=== PATIENT | male | born 1970 | race Caucasian/White ===

== ENCOUNTER → 2016-10-29 | Outpatient (CLI) | payer MEDICARE, OTHER ==
--- NOTE | 2016-10-29 11:25 | CT ---
EXAMINATION TYPE: CT sinus wo con DATE OF EXAM: 10/29/2016 9:02 AM COMPARISON: NONE HISTORY: Sinusitis CT DLP: 564.4 mGycm CONTRAST: None The paranasal sinuses are examined in the axial plane at 2 mm thick sections. Reconstructed images i n the coronal plane were obtained. There is a retention cyst within the right maxillary sinus. Retention cyst within the inferior left m axillary sinus. The ethmoid air cells are clear. The sphenoid sinuses are clear. The frontal sinus es are clear. The septum is evaluated. There is septal deviation to the left. The ostiomeatal units are patent. Ja air cells are present. IMPRESSIONS: 1. Retention cyst within the bilateral maxillary sinuses.
== END | disposition home or self-care (01) ==
LOC: RADCTMAIN 08:50
PROVIDERS: ATTEND Otolaryngology
DX: M27.40 Unspecified cyst of jaw (principal); J32.9 Chronic sinusitis, unspecified
CPT/HCPCS: 70486

== ENCOUNTER 2016-12-01 07:39 | Day surgery (SDC) | payer MEDICARE, OTHER ==
[2016-11-28 14:49] VITALS: BMI 36.6
[~2016-12-01 07:39] MED LIST: ACETAMINOPHEN TAB 500 MG TAB PO ONE; DEXAMETHASONE SOD PHOSPHATE 10 MG/ML 1 ML VIAL IV ONE; DEXAMETHASONE SOD PHOSPHATE 4 MG/ML 1 ML VIAL IV ONE; FAMOTIDINE 20 MG/2 ML VIAL IV ONE; HYDROmorphone 1 MG/ML 1 ML SYRINGE IVP PRN; LACTATED RINGERS 1,000 ML IV SCH; MIDAZOLAM 2 MG/2 ML VIAL IV PRN; ONDANSETRON 4 MG/2 ML VIAL IVP ONE; Pre Op ABX Message 1 EACH MISC MISCELLANE ONE; SCOPOLAMINE 1.5MG/72HR PATCH TRANSDERM ONE
[2016-12-01] MEDS: OXYMETAZOLINE 0.05% NASL SPRAY 15 ML NASAL ONE ×5 (08:33→08:55)
[2016-12-01] MEDS ORDERED: LIDOCAINE 1% 20 ML VIAL (10MG/ML) FOR IV START INTRADERMA ONE (08:40)
[2016-12-01] MEDS ORDERED: MIDAZOLAM 2 MG/2 ML VIAL ONE (09:35)
[2016-12-01] MEDS ORDERED: PROPOFOL 10 MG/ML 20 ML VIAL IV ONE (09:35)
[2016-12-01] MEDS ORDERED: fentaNYL (PF) 50 MCG/ML 2 ML AMP ONE (09:35)
[2016-12-01] MEDS ORDERED: SUCCINYLCHOLINE CHLORIDE 100 MG/5 ML SYR IV ONE (09:35)
[2016-12-01] MEDS ORDERED: DEXAMETHASONE SOD PHOS (MDV) 100 MG/10 ML VIAL ONE (09:35)
[2016-12-01] MEDS ORDERED: OXYMETAZOLINE 0.05% NASL SPRAY 15 ML NASAL ONE (10:00)
[2016-12-01] MEDS ORDERED: EPINEPHrine 1 MG/ML (MDV) 30 ML VIAL SQ ONE ×2 (10:01)
[2016-12-01] MEDS ORDERED: BUPIVACAINE (PF) 0.5% 30 ML VIAL MISCELLANE ONE ×2 (10:03)
[2016-12-01] MEDS ORDERED: LIDOCAINE 1%-EPI 1:100,000 20 ML VIAL SUBMUCOSAL ONE ×2 (10:04)
[2016-12-01] MEDS ORDERED: LACTATED RINGERS 1,000 ML IV ONE (11:11)
[2016-12-01 11:22] VITALS: TEMP 97.2
--- NOTE | 2016-12-01 11:29 | P.OP ---
Date of Procedure: 12/01/16 Preoperative Diagnosis: Chronic sinusitis Deviated nasal septum Bilateral maxillary sinus polyps Massive inferior turbinate hypertrophy Obstructive sleep apnea syndrome Obesity Postoperative Diagnosis: Same Procedure(s) Performed: Septoplasty Bilateral outfracture compression and submucosal resection of the inferior turbinates Bilateral functional endoscopic sinus surgery Bilateral removal of maxillary sinus polyps Anesthesia: SMITH Surgeon: Adama Torrez Estimated Blood Loss (ml): 40 Pathology: other (Sinonasal) Condition: stable Disposition: PACU Indications for Procedure: This patient has had long-standing sinus disease with complaints of nasal congestion, discolored drainage, facial pain and pressure, anosmia, fatigue etc. He is unable to utilize the CPAP because of his nasal obstructive issues. He also has some secondary migraine issues. CAT scan evaluation shows significant sinus disease and a severe deviated nasal septum and large obstructive inferior turbinates. All risks, benefits, and alternative therapies were discussed in detail. Risks of bleeding, infection, orbital and skull base penetration, E for secondary surgery, polyp recurrence etc. etc. were explained. All questions were answered and a consent was obtained. Operative Findings: This patient was found have a very severe left septal deviation with massive nasal inferior turbinate hypertrophy with obstruction they maxillary sinus polyps there were attached at the base of the maxillary sinuses and widespread sinonasal disease throughout were noted. Description of Procedure: This patient was taken to the operative room and placed in the supine position. A general inhalation anesthetic was administered to the patient by the department of anesthesia with a functioning IV line in place. The patient was monitored throughout the entire case by the department of anesthesia. The eyes were taped shut for protection. The patient was placed in a slight reverse Trendelenburg position. The patient had previously utilize Afrin nasal spray preoperatively. The nose was evaluated and the septum lateral nasal wall and inferior turbinates were injected with lidocaine 1% with epinephrine 1 100,000 bilaterally. Approximately 10 minutes were allowed wait for full vasoconstrictive effects to take place. At this point a caudal incision was made over the caudal portion of the left septum down to the mucoperichondrium. A mucoperichondrial flap was elevated on the left side and dissection was carried with use of tunnels posteriorly. We then made a crossover incision through the cartilage to the contralateral side and for the mucoperichondrial flap development was performed to the extent of visualization on the contralateral side. After the cartilage was freed with use of several crosshatching incisions and removal of some redundant strips of septal cartilage, the septum was straightened and placed back in the midline. The septum was sutured fixated to the ovarian groove. Excellent straightening occurred and the septum was visibly straight. Incision was closed with a 40 rapid Vicryl. We utilized a running nonlocking fashion for closure of the incision. A quilting stitch was used to reapproximate the septal flaps with use of a 40 rapid Vicryl. We then entered the nose with a 0 and 30 Mejia zhanna endoscope. Previous to this we did inject the lateral nasal wall and middle turbinate and uncinate process with lidocaine 1% with epinephrine 1 100,000. Approximately 10 minutes were allowed wait for full vasoconstrictive effects to take place. With use of a microdebrider and a pediatric backbiter, we took down the uncinate process bilaterally. We then opened the maxillary sinuses bilaterally. We utilized a microdebrider for this and entered the maxillary sinuses and removed diseased tissue. Bilateral maxillary sinus polyps were removed bilateral maxillary sinus polyps were removed This was done bilaterally. After the maxillary sinuses were opened and the diseased tissue was removed we entered the ethmoid bulla and with use of a microdebrider and up-biting boss and Kaylynley, we followed the fovea frontalis through the basal lamella and into the posterior ethmoid air cells and did a total ethmoidectomy. We removed the anterior ethmoid air cells with use of a microdebrider and up-biting boss. After all the anterior ethmoid air cells were removed we did the same in the posterior ethmoid. A total ethmoidectomy was completed in that fashion with removal of all the anterior and posterior ethmoid air cells and diseased tissue. Once the ethmoids cells were all taken down we then entered the sphenoid sinus medially and inferiorly underneath the inferior attachment of the superior turbinate. The sphenoid sinus was opened entered and diseased tissue was removed bilaterally. This was done with a microdebrider and [place]akesley. We then entered the frontal sinuses with a giraffe and up-biting Blakesley entered on the agar nasi cells. We open the frontal sinuses and removed sinus tissue that was diseased. We explored the frontal sinuses bilaterally. To summarize all sinuses were open all sinuses were explored and we remove diseased tissue from the sphenoid maxillary and frontal sinuses. Ethmoid sinuses were opened totally. We removed all the ethmoid septations in both the anterior and posterior ethmoid air cells. 0 gel was inserted and minimal bleeding was encountered. We reinspected the skull base there is no signs of any orbital penetration or signs of any intracranial penetration. The sugical site was reinspected after the 0 gel was placed and no bleeding was seen. Attention was then paid to the inferior turbinates. The bilateral inferior turbinates were hypertrophic and obstructive. We entered the anterior portion of the inferior turbinates with use of a microdebrider. We remove bone and submucosal elements with use of a microdebrider bilaterally. The inferior turbinates underwent a submucosal resection with removal of submucosal tissue and bone. We obtained a much better and normal in size for breathing. The inferior turbinates were then outfractured and compressed with a Swapdomes nasal elevator. Excellent airway was obtained and was symmetric bilaterally. No bleeding was encountered.Intranasal splints were inserted and fixated at the end of the case. We utilized Arechiga nasal splints. There will be removed and the patient returns to the office.
[2016-12-01] MEDS ORDERED: amLODIPine 10 MG TAB PO STA (11:32)
[2016-12-01] MEDS ORDERED: amLODIPine 10 MG TAB PO PRN (11:38)
[2016-12-01 11:46] VITALS: RESP 16
[2016-12-01] MEDS ORDERED: HYDROcodone/APAP 5-325MG 1 EACH TAB PO ONE (12:08)
[2016-12-01 12:34] VITALS: BP 142/91; PULSE 93
== END 2016-12-01 13:17 | disposition home or self-care (01) ==
LOC: OR 07:39
PROVIDERS: ATTEND Otolaryngology
DX: J34.2 Deviated nasal septum (principal); J32.4 Chronic pansinusitis; J33.8 Other polyp of sinus; J34.3 Hypertrophy of nasal turbinates; G47.33 Obstructive sleep apnea (adult) (pediatric); G43.909 Migraine, unspecified, not intractable, without status migrainosus; I10 Essential (primary) hypertension; E78.5 Hyperlipidemia, unspecified; F17.200 Nicotine dependence, unspecified, uncomplicated; F32.9 Major depressive disorder, single episode, unspecified; K21.9 Gastro-esophageal reflux disease without esophagitis; E66.9 Obesity, unspecified; Z68.37 Body mass index [BMI] 37.0-37.9, adult; Z79.899 Other long term (current) drug therapy; Z79.52 Long term (current) use of systemic steroids
CPT/HCPCS: 30520; 30140; 31255; 96361; 96374; 96375; 99285; 94640; 88305; 88300; 71020; J0171; J2250; J2270; J1100 ×2; J2405; J3010; J0131; J0330; J2704

== ENCOUNTER 2016-12-01 20:04 | Emergency (ER) | payer MEDICARE, OTHER ==
[2016-12-01] MEDS ORDERED: ACETAMINOPHEN IV (For NPO) 1,000 MG in EMPTY BAG 1 BAG IVPB STA (20:30)
[2016-12-01] MEDS ORDERED: ONDANSETRON 4 MG/2 ML VIAL IVP STA (20:30)
[2016-12-01] MEDS ORDERED: IPRATROPIUM-ALBUTEROL 3 ML NEB INHALATION STA (20:30)
[2016-12-01] MEDS ORDERED: SODIUM CHLORIDE 0.9% 1,000 ML IV ONE (20:32)
--- NOTE | 2016-12-01 20:36 | ED ---
General Adult HPI - General Chief complaint: ENT Stated complaint: SARY/Headache Post Op 10hrs Time Seen by Provider: 12/01/16 20:24 Source: patient, RN notes reviewed, old records reviewed Mode of arrival: ambulatory Limitations: no limitations - History of Present Illness Initial comments: 46-year-old male presenting for headache and shortness of breath. Patient had an ENT procedure done earlier today by Dr. Torrez. States since he woke up from anesthesia he has had a persistent headache. He also feels like he has a sore throat and feels somewhat short of breath. He does have a history of tobacco abuse but states he has not smoked today or yesterday. He denies any chest pain. He denies epistaxis since the surgery. He does have nasal packing in place. He denies any fevers or chills. - Related Data Home Medications Medication Instructions Recorded Confirmed Lisinopril-Hctz 10-12.5 mg 1 tab PO HS 05/30/14 12/01/16 [Zestoretic 10-12.5] FLUoxetine HCL [PROzac] 20 mg PO HS 06/09/15 12/01/16 Ipratropium [place] [Atrovent Hfa] 2 puff INHALATION RT-QID PRN 06/09/15 Pravastatin Sodium [Pravachol] 20 mg PO DAILY 06/09/15 12/01/16 Ascorbic Acid [Vitamin C] 250 mg PO DAILY 11/28/16 12/01/16 Esomeprazole Magnesium [NexIUM] 40 mg PO HS 11/28/16 12/01/16 Multivitamin [Multivitamins Adult 1 tab PO DAILY 11/28/16 12/01/16 Gummies] SUMAtriptan SUCCINATE [Imitrex] 100 mg PO BID 11/28/16 12/01/16 Amoxicillin/Potassium Clav 1 tab PO Q12HR 12/01/16 12/01/16 [Augmentin 875-125 Tablet] Ergocalciferol [Vitamin D2] 50,000 unit PO WE 12/01/16 12/01/16 Hydrocodone/Acetaminophen [[place] 1 - 2 tab PO Q6HR PRN 12/01/16 12/01/16 5-325] Montelukast [Singulair] 10 mg PO HS 12/01/16 12/01/16 predniSONE See Taper PO DIRECTED 12/01/16 12/01/16 Previous Rx's Medication Instructions Recorded Ibuprofen [Motrin] 600 mg PO Q6HR PRN #60 tab 06/11/15 Allergies Allergy/AdvReac Type Severity Reaction Status Date / Time No Known Allergies Allergy Verified 12/01/16 20:39 Review of Systems ROS Statement: Those systems with pertinent positive or pertinent negative responses have been documented in the HPI. ROS Other: All systems not noted in ROS Statement are negative. Past Medical History Past Medical History: Asthma, GERD/Reflux, Hyperlipidemia, Hypertension, Osteoarthritis (OA), Sleep Apnea/CPAP/BIPAP Additional Past Medical History / Comment(s): STATES UNABLE TO WEAR MACHINE, CURRENT TX FOR URI STARTED MEDS 05/26/14 History of Any Multi-Drug Resistant Organisms: None Reported Past Surgical History: Orthopedic Surgery Additional Past Surgical History / Comment(s): JORDAN KNEE ARTHROSCOPY, TESTICLE SX CHILD, nose surgery Past Anesthesia/Blood Transfusion Reactions: No Reported Reaction Past Psychological History: Anxiety Additional Psychological History / Comment(s): STATES TAKES PROZAC FOR ANGER ISSUES Smoking Status: Current every day smoker Past Alcohol Use History: None Reported Past Drug Use History: None Reported - Past Family History Mother Family Medical History: No Reported History General Exam - General Exam Comments Initial Comments: General: Awake and Alert. No acute distress. Does not appear acutely ill. Obese. Eyes: JUDIT, EOM intact. No nystagmus. No scleral icterus. HENT: Atraumatic, normocephalic. Mucous membranes are dry. Trachea midline. There is nasal packing in both nares which appears clean, there is no bleeding in the posterior pharynx. Neck: The neck is supple, there is no tenderness or JVD. Cardiovascular: Regular rate and rhythm. No murmur, rub, or gallop is appreciated. Distal pulses intact. Respiratory: Lungs are clear to auscultation bilaterally. No wheezes, rales, rhonchi. No respiratory distress. Gastrointestinal: Soft, Nontender. No rebound or guarding. Non-distended. No masses or organomegaly noted. No CVA tenderness. Musculoskeletal: No tenderness. Normal ROM. No gross deformity. No strength deficits. Neurological: A&Ox3. CN II-XII grossly intact, There are no obvious motor or sensory deficits. Coordination appears grossly intact. Speech is normal. Skin: Skin is warm and dry and no rashes or lesions are noted. Psychiatric: Cooperative, appropriate mood & affect, normal judgment. Limitations: no limitations Course Vital Signs 12/01/16 12/01/16 12/01/16 20:10 21:07 21:21 Temperature 98 F Pulse Rate 90 86 86 Respiratory 24 Rate Blood Pressure 175/89 O2 Sat by Pulse 97 Oximetry 12/01/16 22:30 Temperature 98.3 F Pulse Rate 86 Respiratory 20 Rate Blood Pressure 149/72 O2 Sat by Pulse 99 Oximetry Medical Decision Making - Medical Decision Making 46-year-old male presenting for evaluation after ENT procedure earlier today. Patient appears clinically stable at this time. He does appear to have some dry mucous membranes which may be due to medications from anesthesia versus dehydration. Patient does not have any posterior pharyngeal edema. Lungs sounds are clear without wheezing or respiratory distress. He does have history of tobacco abuse and was given a breathing treatment to help with SOB, although no significant wheezing or respiratory distress on exam. Discussed expectations of pain after the procedure that he had as well as after intubation and extubation during the procedure. Patient was given pain and nausea medication. I did call and discuss with Dr. Torrez to updated on this status of patient. Patient does not appear to have any complications related to surgery at this time. Patient was reevaluated and feeling improved. Discussed close follow-up with PCP and Dr. Torrez. Pt has Rx for [place] he filled. Discussed concerning signs symptoms for immediate return to the ED. Patient is agreeable with plan and discharge home. - Radiology Data Radiology results: report reviewed, image reviewed Disposition Clinical Impression: Headache, SOB (shortness of breath), S/P nasal surgery Disposition: HOME SELF-CARE Condition: Stable Instructions: Acute Headache (ED) Additional Instructions: Please take your medications prescribed after surgery as directed. Please follow up with Dr. Torrez as scheduled. Referrals: Bessie Salgado MD [Primary Care Provider] - 1-2 days Time of Disposition: 22:30
--- NOTE | 2016-12-01 21:52 | XR ---
EXAMINATION TYPE: XR chest 2V DATE OF EXAM: 12/01/2016 9:35 PM COMPARISON: 07/14/2015 HISTORY: Short of breath TECHNIQUE: Frontal and lateral views of the chest are obtained. FINDINGS: Heart and mediastinum are normal. Lungs are clear. Diaphragm is normal. Bony thorax appear s normal. IMPRESSION: Normal chest. No change.
[2016-12-01] MEDS ORDERED: MORPHINE SULFATE 4 MG/ML SYRINGE IVP STA (22:13)
[2016-12-01 23:25] VITALS: BP 158/75; PULSE 89; RESP 18; TEMP 98.1
== END 2016-12-01 23:15 | disposition home or self-care (01) ==
LOC: EC 20:04
DX: R06.02 Shortness of breath (principal); R51 Headache; F17.200 Nicotine dependence, unspecified, uncomplicated; J45.909 Unspecified asthma, uncomplicated; K21.9 Gastro-esophageal reflux disease without esophagitis; E78.5 Hyperlipidemia, unspecified; I10 Essential (primary) hypertension; M19.90 Unspecified osteoarthritis, unspecified site; G47.30 Sleep apnea, unspecified; F41.9 Anxiety disorder, unspecified; Z79.899 Other long term (current) drug therapy; Z79.52 Long term (current) use of systemic steroids; Z98.890 Other specified postprocedural states
CPT/HCPCS: 99285; 96374; 96375 ×2; 96361; 94640; 71020; J2270; J2405; J0131

== ENCOUNTER 2016-12-03 19:20 | Emergency (ER) | payer MEDICARE, OTHER ==
[2016-12-03] MEDS ORDERED: METOCLOPRAMIDE 5 MG/ML 2 ML VIAL IVP STA (20:20)
[2016-12-03] MEDS ORDERED: KETOROLAC 30 MG/ML 1 ML VIAL IVP STA (20:20)
[2016-12-03] MEDS ORDERED: diphenhydrAMINE 50 MG/ML 1 ML VIAL IVP STA (20:20)
[2016-12-03 20:52] LABS: Basophils # (A) 0.1 k/uL (0-0.2); Basophils % (A) 0 %; CH 30.2; Eosinophils # (A) 0.1 k/uL (0-0.7); Eosinophils % (A) 1 %; HCT 44.3 % (39.0-53.0); HDW 2.24; HGB 14.4 gm/dL (13.0-17.5); Luc # (Auto) 0.16; Luc % (Auto) 1; Lymphocytes # (A) 2.3 k/uL (1.0-4.8); Lymphocytes % (A) 19 %; MCH 29.8 pg (25.0-35.0); MCHC 32.4 g/dL (31.0-37.0); MCV 91.9 fL (80.0-100.0); Mean Platelet Volume 7.4; Monocytes # (A) 0.6 k/uL (0-1.0); Monocytes % (A) 5 %; Neutrophils % (A) 74 %; RBC 4.82 m/uL (4.30-5.90); WBC 12.1 k/uL (3.8-10.6); WBC (Perox) 11.74
[2016-12-03 21:01] LABS: Anion Gap 10 mmol/L; Blood Urea Nitrogen 11 mg/dL (9-20); Calcium 9.4 mg/dL (8.4-10.2); Carbon Dioxide 27 mmol/L (22-30); Chloride 101 mmol/L (98-107); Glucose 92 mg/dL (74-99); Non-African American GFR(MDRD) >60 (>60 ml/min/1.73 sqM); Potassium 4.4 mmol/L (3.5-5.1); Sodium 138 mmol/L (137-145)
[2016-12-03] MEDS ORDERED: OXYMETAZOLINE 0.05% NASL SPRAY 15 ML NASAL STA (21:01)
[2016-12-03 21:54] VITALS: BP 154/83; PULSE 84; RESP 20; TEMP 98.4
--- NOTE | 2016-12-03 22:36 | ED ---
General Adult HPI - General Chief complaint: Headache Stated complaint: [place] Source: patient Mode of arrival: ambulatory Limitations: no limitations - History of Present Illness Initial comments: 46-year-old male presented for evaluation of headache for the last few days. On he had an ENT procedure with Dr. Torrez and has since been evaluated in this department twice for migraines. Today he presents for continued headache that is different from the previous headaches he presented for him that it is more frontal headache and not located at the nose. He states he has a long-standing history of migraines and that he believes his surgery has caused this current episode. He denies any change in vision, ataxia, weakness, numbness, paresthesias, loss of balance. He denies any chest pain, shortness breath, fevers, chills, nausea, vomiting. - Related Data Home Medications Medication Instructions Recorded Confirmed Lisinopril-Hctz 10-12.5 mg 1 tab PO HS 05/30/14 12/03/16 [Zestoretic 10-12.5] FLUoxetine HCL [PROzac] 20 mg PO HS 06/09/15 12/03/16 Ipratropium [place] [Atrovent Hfa] 2 puff INHALATION RT-QID PRN 06/09/15 Pravastatin Sodium [Pravachol] 20 mg PO DAILY 06/09/15 12/03/16 Ascorbic Acid [Vitamin C] 250 mg PO DAILY 11/28/16 12/03/16 Esomeprazole Magnesium [NexIUM] 40 mg PO HS 11/28/16 12/03/16 Multivitamin [Multivitamins Adult 1 tab PO DAILY 11/28/16 12/03/16 Gummies] SUMAtriptan SUCCINATE [Imitrex] 100 mg PO BID 11/28/16 12/03/16 Amoxicillin/Potassium Clav 1 tab PO Q12HR 12/01/16 12/03/16 [Augmentin 875-125 Tablet] Ergocalciferol [Vitamin D2] 50,000 unit PO WE 12/01/16 12/03/16 Hydrocodone/Acetaminophen [[place] 1 - 2 tab PO Q6HR PRN 12/01/16 12/03/16 5-325] Montelukast [Singulair] 10 mg PO HS 12/01/16 12/03/16 predniSONE See Taper PO DIRECTED 12/01/16 12/03/16 Pseudoephedrine [Sudafed] 30 mg PO Q4H PRN 12/03/16 12/03/16 Previous Rx's Medication Instructions Recorded Ibuprofen [Motrin] 600 mg PO Q6HR PRN #60 tab 06/11/15 Ondansetron Odt [Zofran Odt] 4 mg PO Q8HR PRN #12 tab 12/02/16 LORazepam [Ativan] 0.5 mg PO TID #15 tab 12/03/16 SUMAtriptan SUCCINATE [Imitrex] 50 mg PO ONCE #10 tablet 12/03/16 Allergies Allergy/AdvReac Type Severity Reaction Status Date / Time No Known Allergies Allergy Verified 12/03/16 19:54 Review of Systems ROS Statement: Those systems with pertinent positive or pertinent negative responses have been documented in the HPI. ROS Other: All systems not noted in ROS Statement are negative. Constitutional: Denies: fever, chills Eyes: Denies: eye pain, eye discharge ENT: Reports: congestion, other (Recent ENT surgery with minimal drainage from bilateral nostrils). Denies: ear pain, throat pain, hearing loss, epistaxis Respiratory: Denies: cough, dyspnea Cardiovascular: Denies: chest pain, palpitations, dyspnea on exertion Endocrine: Denies: fatigue, polydipsia Gastrointestinal: Denies: abdominal pain, nausea, vomiting Genitourinary: Denies: urgency, dysuria, frequency Musculoskeletal: Denies: back pain, arthralgia Skin: Denies: rash, lesions Neurological: Reports: headache. Denies: weakness Psychiatric: Denies: anxiety, depression Hematological/Lymphatic: Denies: easy bleeding, easy bruising Past Medical History Past Medical History: Asthma, GERD/Reflux, Hyperlipidemia, Hypertension, Osteoarthritis (OA), Sleep Apnea/CPAP/BIPAP Additional Past Medical History / Comment(s): STATES UNABLE TO WEAR MACHINE, CURRENT TX FOR URI STARTED MEDS 05/26/14 History of Any Multi-Drug Resistant Organisms: None Reported Past Surgical History: Orthopedic Surgery Additional Past Surgical History / Comment(s): JORDAN KNEE ARTHROSCOPY, TESTICLE SX CHILD, nose surgery Past Anesthesia/Blood Transfusion Reactions: No Reported Reaction Past Psychological History: Anxiety Additional Psychological History / Comment(s): STATES TAKES PROZAC FOR ANGER ISSUES Smoking Status: Current every day smoker Past Alcohol Use History: None Reported Past Drug Use History: None Reported - Past Family History Mother Family Medical History: No Reported History General Exam Limitations: no limitations General appearance: alert, in no apparent distress Head exam: Present: atraumatic, normocephalic, normal inspection Eye exam: Present: normal appearance, PERRL, EOMI. Absent: scleral icterus, conjunctival injection, periorbital swelling ENT exam: Present: normal oropharynx, normal external ear exam, other ( Bilateral nostril exam shows swollen membranes with clear minimal drainage) Neck exam: Present: normal inspection. Absent: tenderness, meningismus, lymphadenopathy Respiratory exam: Present: normal lung sounds bilaterally. Absent: respiratory distress, wheezes, rales, rhonchi, stridor Cardiovascular Exam: Present: regular rate, normal rhythm, normal heart sounds. Absent: systolic murmur, diastolic murmur, rubs, gallop, clicks GI/Abdominal exam: Present: soft, normal bowel sounds. Absent: distended, tenderness, guarding, rebound, rigid Rectal exam: Present: deferred Extremities exam: Present: normal inspection, full ROM, normal capillary refill. Absent: tenderness, pedal edema, joint swelling, calf tenderness Back exam: Present: normal inspection Neurological exam: Present: alert, oriented X3, CN II-XII intact Psychiatric exam: Present: normal affect, normal mood Skin exam: Present: warm, dry, intact, normal color. Absent: rash Course Vital Signs 12/03/16 12/03/16 19:26 21:52 Temperature 97.6 F 98.4 F Pulse Rate 83 84 Respiratory 18 20 Rate Blood Pressure 139/88 154/83 O2 Sat by Pulse 96 96 Oximetry Medical Decision Making - Medical Decision Making 46-year-old male presented for evaluation of migraine. He recently had an ENT procedure and has been evaluated at the facility twice over the last 2 days each time with a normal workup and instructions to follow-up with his ENT. On Monday he did have the nasal packings removed by his ENT without competitions. On physical examination he has no change in vision, cranial nerves II through XII intact without focal neurologic deficits, negative ataxia. We'll obtain labs and provide pain control and follow-up with his ENT. Discussed with Dr. Torrez who requested the pt he given a benzo for anxiety and to have him follow up in his office next week.Labs revealed no significant abnormalities and pt was observed for an appropriate amount of time to watch for complications from headache cocktail. Pt requested to be discharged. He was informed of all results and advised to follow-up with his PCP and ENT but to return if his symptoms should worsen or persist. He acknowledged an understanding of this information and agreed with this plan of care. - Lab Data Result diagrams: 12/03/16 20:41 12/03/16 20:41 Lab Results 12/03/16 12/03/16 Range/Units 20:41 20:41 WBC 12.1 H (3.8-10.6) k/uL RBC 4.82 (4.30-5.90) m/uL Hgb 14.4 (13.0-17.5) gm/dL Hct 44.3 (39.0-53.0) % MCV 91.9 (80.0-100.0) fL MCH 29.8 (25.0-35.0) pg MCHC 32.4 (31.0-37.0) g/dL RDW 13.0 (11.5-15.5) % Plt Count 260 (150-450) k/uL Neutrophils % 74 % Lymphocytes % 19 % Monocytes % 5 % Eosinophils % 1 % Basophils % 0 % Neutrophils # 9.0 H (1.3-7.7) k/uL Lymphocytes # 2.3 (1.0-4.8) k/uL Monocytes # 0.6 (0-1.0) k/uL Eosinophils # 0.1 (0-0.7) k/uL Basophils # 0.1 (0-0.2) k/uL Sodium 138 (137-145) mmol/L Potassium 4.4 (3.5-5.1) mmol/L Chloride 101 (98-107) mmol/L Carbon Dioxide 27 (22-30) mmol/L Anion Gap 10 mmol/L BUN 11 (9-20) mg/dL Creatinine 0.80 (0.66-1.25) mg/dL Est GFR (MDRD) Af Amer >60 (>60 ml/min/1.73 sqM) Est GFR (MDRD) Non-Af >60 (>60 ml/min/1.73 sqM) Glucose 92 (74-99) mg/dL Calcium 9.4 (8.4-10.2) mg/dL Disposition Clinical Impression: Headache Disposition: HOME SELF-CARE Condition: Stable Instructions: Acute Headache (ED) Additional Instructions: Please use medication as discussed. Please follow up with family doctor if symptoms have not improved over the next two days. Please return to the emergency room if your symptoms increase or worsen or for any other concerns. Prescriptions: LORazepam [Ativan] 0.5 mg PO TID #15 tab SUMAtriptan SUCCINATE [Imitrex] 50 mg PO ONCE #10 tablet Referrals: Bessie Salgado MD [Primary Care Provider] - 1-2 days Time of Disposition: 22:35
== END 2016-12-03 22:42 | disposition home or self-care (01) ==
LOC: EC 19:20
DX: R51 Headache (principal); I10 Essential (primary) hypertension; J45.909 Unspecified asthma, uncomplicated; E78.5 Hyperlipidemia, unspecified; F41.9 Anxiety disorder, unspecified; K21.9 Gastro-esophageal reflux disease without esophagitis; M19.90 Unspecified osteoarthritis, unspecified site; F17.200 Nicotine dependence, unspecified, uncomplicated; Z98.890 Other specified postprocedural states; Z79.899 Other long term (current) drug therapy
CPT/HCPCS: 99283; 96374; 96375 ×2; 36415; 80048; 85025; J1200; J2765; J1885

== ENCOUNTER 2017-04-21 19:02 | Emergency (ER) | payer MEDICARE, OTHER ==
[2017-04-21 19:19] VITALS: BP 138/75; PULSE 94; RESP 18; TEMP 98.2
--- NOTE | 2017-04-21 19:31 | ED ---
General Adult HPI - General Chief complaint: Extremity Injury, Lower Stated complaint: dropped hammer on toe Time Seen by Provider: 04/21/17 19:24 Source: patient, RN notes reviewed Mode of arrival: wheelchair Limitations: no limitations - History of Present Illness Initial comments: 46-year-old male presents emergency department with a chief complaint of left toe pain. Patient dropped a hammer onto her left toe. Patient states that he has not looked at it. He was concerned due to how tender was without that he should be seen. Patient denies any other symptoms at this time. Patient has been able to ambulate. Patient was concerned due to his pain so he thought that he should be seen.Patient denies any recent fever, chills, shortness of breath, chest pain, back pain, abdominal pain, nausea vomiting, numbness or tingling, dysuria or hematuria, constipation or diarrhea, headaches or visual changes, or any other current symptoms. - Related Data Home Medications Medication Instructions Recorded Confirmed Ipratropium [place] [Atrovent Hfa] 2 puff INHALATION RT-QID PRN 06/09/15 Pravastatin Sodium [Pravachol] 20 mg PO DAILY 06/09/15 04/21/17 Esomeprazole Magnesium [NexIUM] 40 mg PO HS 11/28/16 04/21/17 Multivitamin [Multivitamins Adult 1 tab PO DAILY 11/28/16 04/21/17 Gummies] SUMAtriptan SUCCINATE [Imitrex] 100 mg PO DAILY PRN 11/28/16 04/21/17 Montelukast [Singulair] 10 mg PO HS 12/01/16 04/21/17 Lisinopril-Hctz 10-12.5 mg 1 tab PO DAILY 04/21/17 04/21/17 [Zestoretic 10-12.5] Allergies Allergy/AdvReac Type Severity Reaction Status Date / Time No Known Allergies Allergy Verified 04/21/17 19:46 Review of Systems ROS Statement: Those systems with pertinent positive or pertinent negative responses have been documented in the HPI. ROS Other: All systems not noted in ROS Statement are negative. Past Medical History Past Medical History: Asthma, GERD/Reflux, Hyperlipidemia, Hypertension, Osteoarthritis (OA), Sleep Apnea/CPAP/BIPAP Additional Past Medical History / Comment(s): STATES UNABLE TO WEAR MACHINE, CURRENT TX FOR URI STARTED MEDS 05/26/14 History of Any Multi-Drug Resistant Organisms: None Reported Past Surgical History: Orthopedic Surgery Additional Past Surgical History / Comment(s): JORDNA KNEE ARTHROSCOPY, TESTICLE SX CHILD, nose surgery Past Anesthesia/Blood Transfusion Reactions: No Reported Reaction Past Psychological History: Anxiety Smoking Status: Current every day smoker Past Alcohol Use History: None Reported Past Drug Use History: None Reported - Past Family History Mother Family Medical History: No Reported History General Exam - General Exam Comments Initial Comments: General: The patient is awake and alert, in no distress, and does not appear acutely ill. Neck: The neck is supple, there is no tenderness. Cardiovascular: There is a regular rate and rhythm. No murmur, rub or gallop is appreciated. Respiratory: Lungs are clear to auscultation, respirations are non-labored, breath sounds are equal. No wheezes, stridor, rales, or rhonchi. Musculoskeletal: Sensation intact with 2+ pulses throughout the left lower extremity. full range of motion. small blood blister base of left nail. tenderness to palpation of left pinky toe. Neurological: CN II-XII intact, There are no obvious motor or sensory deficits. Coordination appears grossly intact. Speech is normal. Skin: Skin is warm and dry and no rashes or lesions are noted. Psychiatric: Normal mood and affect. Limitations: no limitations Course Vital Signs 04/21/17 19:15 Temperature 98.2 F Pulse Rate 94 Respiratory 18 Rate Blood Pressure 138/75 O2 Sat by Pulse 99 Oximetry Procedures - Orthopedic Splinting/Casting Injury #1 Side: left Lower Extremity Injury Location: toe Lower Extremity Immobilizer: post-op shoe, ludy tape Medical Decision Making - Medical Decision Making 46-year-old male presents for left pinky toe injury from a hammer. At this time x-rays reviewed that show a left foot toe fracture. Patient's toes were taped together and he was placed in a walking boot. He given follow-up to our help. Patient is agreeable with this plan. All questions have been answered. Return parameters discussed. - Radiology Data Radiology results: report reviewed, image reviewed Disposition Clinical Impression: Toe fracture, left Disposition: HOME SELF-CARE Condition: Stable Instructions: Toe Fracture (ED) Additional Instructions: Please use medication as discussed. Please follow up with family doctor if symptoms have not improved over the next two days. Please return to the emergency room if your symptoms increase or worsen or for any other concerns. Referrals: Bessie Salgado MD [Primary Care Provider] - 1-2 days Karina Camacho DO [Doctor of Osteopathic Medicine] - 1-2 days Time of Disposition: 19:53
--- NOTE | 2017-04-21 19:42 | XR ---
EXAMINATION TYPE: XR toes LT DATE OF EXAM: 04/21/2017 COMPARISON: NONE HISTORY: Dropped hammer on the toe TECHNIQUE: 3 views FINDINGS: There is a nondisplaced fracture of the tuft of the distal phalanx of the little toe left f oot. There is no dislocation. IMPRESSION: Fracture of the distal phalanx of the little toe as above.
== END 2017-04-21 20:15 | disposition home or self-care (01) ==
LOC: EC 19:02
DX: S92.535A Nondisplaced fracture of distal phalanx of left lesser toe(s), initial encounter for closed fracture (principal); K21.9 Gastro-esophageal reflux disease without esophagitis; I10 Essential (primary) hypertension; J45.909 Unspecified asthma, uncomplicated; E78.5 Hyperlipidemia, unspecified; F17.200 Nicotine dependence, unspecified, uncomplicated; Z79.899 Other long term (current) drug therapy; Z98.890 Other specified postprocedural states; W20.8XXA Other cause of strike by thrown, projected or falling object, initial encounter
CPT/HCPCS: 99283

== ENCOUNTER → 2017-05-23 | Outpatient (CLI) | payer MEDICARE, OTHER ==
--- NOTE | 2017-05-23 17:22 | XR ---
EXAMINATION TYPE: XR chest 2V DATE OF EXAM: 05/23/2017 COMPARISON: 12/01/2016 HISTORY: Hypertension. Short of breath TECHNIQUE: Frontal and lateral views of the chest are obtained. FINDINGS: Heart and mediastinum are normal. Lungs are clear. Diaphragm is normal. Bony thorax is int act. IMPRESSION: Normal chest. No change.
--- NOTE | 2017-05-23 18:02 | US ---
EXAMINATION TYPE: US venous doppler duplex LE BI DATE OF EXAM: 05/23/2017 5:36 PM COMPARISON: NONE CLINICAL HISTORY: R22.42, R22.41 Bilateral leg swelling. SIDE PERFORMED: Bilateral TECHNIQUE: The lower extremity deep venous system is examined utilizing real time linear array sonog hieu with graded compression, doppler sonography and color-flow sonography. VESSELS IMAGED: External Iliac Vein (EIV) Common Femoral Vein Deep Femoral Vein Greater Saphenous Vein * Femoral Vein Popliteal Vein Small Saphenous Vein * Proximal Calf Veins (* superficial vessels) Right Leg: Negative for DVT Left Leg: Negative for DVT No evidence of DVT bilateral legs IMPRESSION: Normal exam. No evidence of deep venous thrombosis in both legs.
== END ==
LOC: RADUSMAIN 17:05
PROVIDERS: ATTEND Family Medicine
DX: M79.89 Other specified soft tissue disorders (principal); I10 Essential (primary) hypertension; E78.2 Mixed hyperlipidemia
CPT/HCPCS: 71020; 93970

== ENCOUNTER 2017-06-01 01:15 | Emergency (ER) | payer MEDICARE, OTHER ==
--- NOTE | 2017-06-01 03:12 | ED ---
ENT HPI - General Chief complaint: ENT Stated complaint: Nasal Congestion/SARY Time Seen by Provider: 06/01/17 02:24 Source: patient Mode of arrival: ambulatory Limitations: no limitations - History of Present Illness Initial comments: 46-year-old male presents emergency Department chief complaint of right-sided nasal congestion and clogging. Patient reports that only started this evening. He reports these currently on Keflex for a skin infection over his right ankle. Patient stated that healing well. Patient states he woke up with difficulty breathing. He did take some Sudafed 1 hour prior to arrival. Upon examining the patient he reports that his difficulty breathing is resolved. He reports that he's had significant rhinorrhea. No trauma to the nose or no other complaints including cough or shortness of breath. Patient denies any recent fever, chills, shortness of breath, chest pain, back pain, abdominal pain , nausea vomiting, numbness or tingling, dysuria or hematuria, constipation or diarrhea, headaches or visual changes, or any other current symptoms - Related Data Home Medications Medication Instructions Recorded Confirmed Ipratropium [place] [Atrovent Hfa] 2 puff INHALATION RT-QID PRN 06/09/15 Pravastatin Sodium [Pravachol] 20 mg PO DAILY 06/09/15 06/01/17 Esomeprazole Magnesium [NexIUM] 40 mg PO HS 11/28/16 06/01/17 Montelukast [Singulair] 10 mg PO HS 12/01/16 06/01/17 Lisinopril-Hctz 10-12.5 mg 1 tab PO DAILY 04/21/17 06/01/17 [Zestoretic 10-12.5] Previous Rx's Medication Instructions Recorded Fluticasone Nasal [place] [Flonase 1 spray EA NOSTRIL DAILY #1 bottle 06/01/17 Nasal [place]] Allergies Allergy/AdvReac Type Severity Reaction Status Date / Time No Known Allergies Allergy Verified 06/01/17 01:46 Review of Systems ROS Statement: Those systems with pertinent positive or pertinent negative responses have been documented in the HPI. ROS Other: All systems not noted in ROS Statement are negative. Past Medical History Past Medical History: Asthma, GERD/Reflux, Hyperlipidemia, Hypertension, Osteoarthritis (OA), Sleep Apnea/CPAP/BIPAP Additional Past Medical History / Comment(s): STATES UNABLE TO WEAR MACHINE, CURRENT TX FOR URI STARTED MEDS 05/26/14 History of Any Multi-Drug Resistant Organisms: None Reported Past Surgical History: Orthopedic Surgery Additional Past Surgical History / Comment(s): JORDAN KNEE ARTHROSCOPY, TESTICLE SX CHILD, nose surgery Past Anesthesia/Blood Transfusion Reactions: No Reported Reaction Past Psychological History: Anxiety Smoking Status: Current every day smoker Past Alcohol Use History: None Reported Past Drug Use History: None Reported - Past Family History Mother Family Medical History: No Reported History General Exam - General Exam Comments Initial Comments: this is a well-appearing 46-year-old male. No acute distress. Limitations: no limitations General appearance: alert, in no apparent distress Head exam: Present: atraumatic, normocephalic, normal inspection Eye exam: Present: normal appearance, PERRL, EOMI. Absent: scleral icterus, conjunctival injection, periorbital swelling ENT exam: Present: normal exam, mucous membranes moist, other (rhinorrhea and noted. Patient has no signs of septal hematoma. There is increased nasal drainage from the right near.) Neck exam: Present: normal inspection. Absent: tenderness, meningismus, lymphadenopathy Respiratory exam: Present: normal lung sounds bilaterally. Absent: respiratory distress, wheezes, rales, rhonchi, stridor Cardiovascular Exam: Present: regular rate, normal rhythm, normal heart sounds. Absent: systolic murmur, diastolic murmur, rubs, gallop, clicks Back exam: Present: normal inspection Neurological exam: Present: alert, oriented X3, CN II-XII intact Psychiatric exam: Present: normal affect, normal mood Skin exam: Present: warm, dry, intact, normal color. Absent: rash Course Vital Signs 06/01/17 06/01/17 06/01/17 01:43 02:55 03:17 Temperature 97.8 F 98 F Pulse Rate 86 63 Respiratory 18 16 Rate Blood Pressure 139/66 142/71 O2 Sat by Pulse 100 100 97 Oximetry Medical Decision Making - Medical Decision Making this is a 46-year-old male presents emergency complaint of muscle congestion. He is only been going on for one hour. Patient reports that he is feeling better after waiting in the emergency department to be seen. He did take some Sudafed prior to arrival. Discussed at this time patient likely has a viral upper respiratory infection.Patient's lungs are clear to auscultation, and physical exam was benign besides some right-sided near nasal drainage. Discussed that they need to continue to take decongestant medicine such as Mucinex or Sudafed. Patient will be discharged with a fluticasone nasal spray. Discussed that he should follow up with primary care provider if symptoms continue to persist. Patient agrees to treatment plan will comply. Return parameters were discussed. Disposition Clinical Impression: Nasal congestion Disposition: HOME SELF-CARE Condition: Good Instructions: Sinusitis (ED) Additional Instructions: patient advised to follow-up with primary care provider.Rest, remain hydrated. Take decongestant medicine. Return to the emergency department if any alarming signs or symptoms occur. Prescriptions: Fluticasone Nasal [place] [Flonase Nasal [place]] 1 spray EA NOSTRIL DAILY #1 bottle Referrals: Bessie Salgado MD [Primary Care Provider] - 1-2 days Time of Disposition: 03:11
[2017-06-01 03:18] VITALS: BP 142/71; PULSE 63; RESP 16; TEMP 98
== END 2017-06-01 03:17 | disposition home or self-care (01) ==
LOC: EC 01:15
DX: R09.81 Nasal congestion (principal); J34.89 Other specified disorders of nose and nasal sinuses; L08.9 Local infection of the skin and subcutaneous tissue, unspecified; E78.5 Hyperlipidemia, unspecified; I10 Essential (primary) hypertension; J45.909 Unspecified asthma, uncomplicated; K21.9 Gastro-esophageal reflux disease without esophagitis; F17.200 Nicotine dependence, unspecified, uncomplicated; Z79.899 Other long term (current) drug therapy; Z98.890 Other specified postprocedural states
CPT/HCPCS: 99284

== ENCOUNTER 2017-07-05 18:19 | Emergency (ER) | payer MEDICARE, OTHER ==
[2017-07-05] MEDS ORDERED: MECLIZINE 12.5 MG TAB PO STA (19:39)
[2017-07-05] MEDS ORDERED: METOCLOPRAMIDE 5 MG/ML 2 ML VIAL IM STA (19:39)
--- NOTE | 2017-07-05 19:43 | ED ---
General Adult HPI - General Chief complaint: Dizziness Stated complaint: Dizzy Time Seen by Provider: 07/05/17 19:17 Source: patient, RN notes reviewed Mode of arrival: wheelchair Limitations: no limitations - History of Present Illness Initial comments: patient is a pleasant 46-year-old male presenting to the emergency Department with complaints of dizziness. Patient has had some symptoms over the past several weeks. Patient had symptoms prior to arrival that are somewhat mild at this time. Symptoms worsen with head movement and upright position. Symptoms also worsen with closing eyes.patient did see his primary care physician who did recommend computed tomography scan. Patient has not had that done yet. No weakness. No confusion. No visual change. No paresthesias. No headache. - Related Data Home Medications Medication Instructions Recorded Confirmed Albuterol Nebulized [Ventolin 2.5 mg INHALATION RT-Q6H PRN 06/21/17 07/05/17 Nebulized] Ibuprofen [Motrin] 800 mg PO DAILY PRN 06/21/17 07/05/17 Esomeprazole Magnesium [NexIUM] 40 mg PO DAILY 07/05/17 07/05/17 FLUoxetine HCL [PROzac] 20 mg PO DAILY 07/05/17 07/05/17 Fluticasone Nasal [place] [Flonase 1 - 2 spr EA NOSTRIL DAILY PRN 07/05/17 Nasal [place]] Hydrochlorothiazide 25 mg PO DAILY 07/05/17 07/05/17 Lisinopril [Zestril] 10 mg PO DAILY 07/05/17 07/05/17 Montelukast [Singulair] 10 mg PO HS 07/05/17 07/05/17 Ondansetron HCl [Zofran] 8 mg PO BID PRN 07/05/17 07/05/17 Pravastatin Sodium [Pravachol] 20 mg PO HS 07/05/17 07/05/17 Previous Rx's Medication Instructions Recorded Meclizine [Antivert] 25 mg PO TID PRN #12 tab 07/05/17 Metoclopramide HCl [Reglan] 10 mg PO Q6HR PRN #15 tablet 07/05/17 Allergies Allergy/AdvReac Type Severity Reaction Status Date / Time No Known Allergies Allergy Verified 07/05/17 19:34 Review of Systems ROS Statement: Those systems with pertinent positive or pertinent negative responses have been documented in the HPI. ROS Other: All systems not noted in ROS Statement are negative. Constitutional: Denies: fever Eyes: Denies: eye pain ENT: Denies: ear pain Respiratory: Denies: cough Cardiovascular: Denies: chest pain Endocrine: Denies: fatigue Gastrointestinal: Denies: abdominal pain Genitourinary: Denies: dysuria Musculoskeletal: Denies: back pain Skin: Denies: rash Neurological: Reports: vertigo. Denies: headache, weakness, confusion Past Medical History Past Medical History: Asthma, GERD/Reflux, Hyperlipidemia, Hypertension, Osteoarthritis (OA), Sleep Apnea/CPAP/BIPAP Additional Past Medical History / Comment(s): STATES UNABLE TO WEAR MACHINE, CURRENT TX FOR URI STARTED MEDS 05/26/14, vertigo History of Any Multi-Drug Resistant Organisms: None Reported Past Surgical History: Orthopedic Surgery Additional Past Surgical History / Comment(s): JORDAN KNEE ARTHROSCOPY, TESTICLE SX CHILD, nose surgery Past Anesthesia/Blood Transfusion Reactions: No Reported Reaction Past Psychological History: Anxiety Smoking Status: Current every day smoker Past Alcohol Use History: None Reported Past Drug Use History: None Reported - Past Family History Mother Family Medical History: No Reported History General Exam Limitations: no limitations General appearance: alert, in no apparent distress Head exam: Present: atraumatic Eye exam: Present: normal appearance, PERRL, EOMI. Absent: nystagmus ENT exam: Present: normal oropharynx Neck exam: Present: normal inspection Respiratory exam: Present: normal lung sounds bilaterally Cardiovascular Exam: Present: regular rate, normal rhythm GI/Abdominal exam: Present: soft. Absent: distended, tenderness Extremities exam: Present: normal inspection Neurological exam: Present: alert, CN II-XII intact. Absent: motor sensory deficit Expanded Speech: Present: fluid speech Cranial nerves: EOM's Intact: Normal, Facial Sensation: Normal Cerebellar function: Finger to Nose: Normal Sensory exam: Upper Extremity Light Touch: Normal, Lower Extremity Light Touch: Normal Motor strength exam: RUE: 5, LUE: 5, RLE: 5, LLE: 5 Eye Response: (4) open spontaneously Motor Response: (6) obeys commands Verbal Response: (5) oriented Psychiatric exam: Present: normal affect, normal mood Skin exam: Present: normal color Course Vital Signs 07/05/17 07/05/17 18:37 20:00 Temperature 98.1 F 97.6 F Pulse Rate 94 86 Respiratory 20 20 Rate Blood Pressure 111/61 135/60 O2 Sat by Pulse 98 97 Oximetry Medical Decision Making - Medical Decision Making patient reevaluated and improved. Patient symptom free at this time. Patient and family were updated on results and need for follow-up with primary care physician. - Radiology Data Radiology results: report reviewed (Computed tomography scan of the brain shows no acute process.) Disposition Clinical Impression: Vertigo Disposition: HOME SELF-CARE Condition: Stable Instructions: Dizziness (ED) Additional Instructions: please follow-up to in the next day or 2 for recheck. Return for increased dizziness, weakness, confusion, fevers, worsening symptoms or other concerns. Discontinue smoking. [id number] Antivert as needed. Prescriptions: Meclizine [Antivert] 25 mg PO TID PRN #12 tab PRN Reason: dizziness Metoclopramide HCl [Reglan] 10 mg PO Q6HR PRN #15 tablet PRN Reason: Nausea Referrals: Bessie Salgado MD [Primary Care Provider] - 1-2 days Time of Disposition: 20:47
--- NOTE | 2017-07-05 20:20 | CT ---
EXAMINATION TYPE: CT brain wo con DATE OF EXAM: 07/05/2017 COMPARISON: NONE HISTORY: Patient complains of vertigo. CT DLP: 1132 mGycm. Automated Exposure Control for Dose Reduction was Utilized. TECHNIQUE: CT scan of the head is performed without contrast. FINDINGS: Ventricles of normal size. There is no mass effect nor midline shift. There is no sign of i ntracranial hemorrhage. The calvarium is intact. CONCLUSION: Normal CT scan of the brain. Normal appearing temporal bones.
[2017-07-05 21:00] VITALS: BP 136/70; PULSE 89; RESP 18; TEMP 97.3
== END 2017-07-05 20:59 | disposition home or self-care (01) ==
LOC: EC 18:19
DX: R42 Dizziness and giddiness (principal); J45.909 Unspecified asthma, uncomplicated; E78.5 Hyperlipidemia, unspecified; I10 Essential (primary) hypertension; K21.9 Gastro-esophageal reflux disease without esophagitis; F17.200 Nicotine dependence, unspecified, uncomplicated; Z79.899 Other long term (current) drug therapy
CPT/HCPCS: 70450; 99284; 96372; J2765

== ENCOUNTER 2017-09-04 16:03 | Emergency (ER) | payer MEDICARE, OTHER ==
[2017-09-04 16:24] VITALS: BP 129/70; PULSE 90; RESP 20; TEMP 98.1
--- NOTE | 2017-09-04 17:19 | ED ---
Extremity Problem HPI - General Chief complaint: Extremity Problem,Nontraumatic Stated complaint: Right Arm Pain Time Seen by Provider: 09/04/17 16:32 Source: patient, RN notes reviewed Mode of arrival: ambulatory Limitations: no limitations - History of Present Illness Initial comments: This is a 47-year-old male presents to the emergency department with chief complaint of right arm pain. Patient denies any injury or trauma to the arm. He states that while driving today he felt a sharp pain in his right forearm that radiated up to his mid bicep. While in the emergency department he states that he is no longer experiencing the pain. He denies any acute onset of numbness and tingling. He states he has carpal tunnel in both hands so numbness and tingling is nothing new to him. Patient states pain comes on randomly, does not increase with any specific movements. Denies fever, chills, chest pain, shortness of breath, abdominal pain, nausea or vomiting, constipation or diarrhea, dysuria or hematuria, headache or vision changes. - Related Data Home Medications Medication Instructions Recorded Confirmed Albuterol Nebulized [Ventolin 2.5 mg INHALATION RT-Q6H PRN 06/21/17 07/05/17 Nebulized] Ibuprofen [Motrin] 800 mg PO DAILY PRN 06/21/17 07/05/17 Esomeprazole Magnesium [NexIUM] 40 mg PO DAILY 07/05/17 07/05/17 FLUoxetine HCL [PROzac] 20 mg PO DAILY 07/05/17 07/05/17 Fluticasone Nasal [place] [Flonase 1 - 2 spr EA NOSTRIL DAILY PRN 07/05/17 Nasal [place]] Hydrochlorothiazide 25 mg PO DAILY 07/05/17 07/05/17 Lisinopril [Zestril] 10 mg PO DAILY 07/05/17 07/05/17 Montelukast [Singulair] 10 mg PO HS 07/05/17 07/05/17 Ondansetron HCl [Zofran] 8 mg PO BID PRN 07/05/17 07/05/17 Pravastatin Sodium [Pravachol] 20 mg PO HS 07/05/17 07/05/17 Previous Rx's Medication Instructions Recorded Meclizine [Antivert] 25 mg PO TID PRN #12 tab 07/05/17 Metoclopramide HCl [Reglan] 10 mg PO Q6HR PRN #15 tablet 07/05/17 Allergies Allergy/AdvReac Type Severity Reaction Status Date / Time No Known Allergies Allergy Verified 09/04/17 16:24 Review of Systems ROS Statement: Those systems with pertinent positive or pertinent negative responses have been documented in the HPI. ROS Other: All systems not noted in ROS Statement are negative. Past Medical History Past Medical History: Asthma, GERD/Reflux, Hyperlipidemia, Hypertension, Osteoarthritis (OA), Sleep Apnea/CPAP/BIPAP Additional Past Medical History / Comment(s): STATES UNABLE TO WEAR MACHINE, CURRENT [place] FOR URI STARTED MEDS 05/26/14, vertigo History of Any Multi-Drug Resistant Organisms: None Reported Past Surgical History: Orthopedic Surgery Additional Past Surgical History / Comment(s): JORDAN KNEE ARTHROSCOPY, TESTICLE SX CHILD, nose surgery Past Anesthesia/Blood Transfusion Reactions: No Reported Reaction Past Psychological History: Anxiety Smoking Status: Current every day smoker Past Alcohol Use History: None Reported Past Drug Use History: None Reported - Past Family History Mother Family Medical History: No Reported History General Exam - General Exam Comments Initial Comments: General: Awake and alert, well-developed; in no apparent distress. HEENT: Head atraumatic, normocephalic. Pupils are equal, round and reactive to light. Extraocular movements intact. Oropharynx moist without erythema or exudate. Neck: Supple. Normal ROM. Cardiovascular: Regular rate and rhythm. No murmurs, rubs or gallops. Chest symmetrical. Respiratory: Lungs clear to auscultation bilaterally. No wheezes, rales or rhonchi. Normal respiratory effort with no use of accessory muscles. Musculoskeletal: Normal active range of motion of right upper extremity joints. Sensation is intact. Radial pulses are 2+ equal and palpable bilaterally. There is no tenderness on palpation of right arm. Skin: [place], warm and dry without rashes or lesions. Neurological: Alert and oriented x3. CN II-XII grossly intact. Speech is fluent and answers are appropriate. No focal neuro deficits. Psychiatric: Normal mood and affect. No overt signs of depression or anxiety noted. Limitations: no limitations Course Vital Signs 09/04/17 16:23 Temperature 98.1 F Pulse Rate 90 Respiratory 20 Rate Blood Pressure 129/70 O2 Sat by Pulse 98 Oximetry Medical Decision Making - Medical Decision Making This is a 47-year-old male who presents to the emergency department with chief complaint of right arm pain. Patient denies any injury or trauma to the arm. He denies any other symptoms. Patient states that the pain is intermittent and is sharp in nature. While in the emergency department, patient states he is no longer experiencing the pain. He states he has an appointment with his primary care provider tomorrow. Patient will be discharged home with recommendation to follow up with his primary care provider as scheduled tomorrow. Patient is in agreement with plan and voices understanding. All questions were answered. This case was discussed with attending physician, Dr. Rosado. Disposition Clinical Impression: Pain in arm, unspecified Disposition: HOME SELF-CARE Condition: Good Instructions: Arm Pain (ED) Additional Instructions: Please follow up with primary care provider tomorrow as scheduled. Return to emergency department if symptoms should worsen or any concerns arise. Referrals: eBssie Salgado MD [Primary Care Provider] - 1-2 days Time of Disposition: 17:18
== END 2017-09-04 17:26 | disposition home or self-care (01) ==
LOC: EC 16:03
DX: M79.601 Pain in right arm (principal); J45.909 Unspecified asthma, uncomplicated; K21.9 Gastro-esophageal reflux disease without esophagitis; E78.5 Hyperlipidemia, unspecified; I10 Essential (primary) hypertension; G47.30 Sleep apnea, unspecified; F41.9 Anxiety disorder, unspecified; F17.200 Nicotine dependence, unspecified, uncomplicated; Z79.899 Other long term (current) drug therapy
CPT/HCPCS: 99283

== ENCOUNTER 2017-10-31 02:39 | Emergency (ER) | payer MEDICARE, OTHER ==
[2017-10-31 02:45] VITALS: BP 140/85; PULSE 83; RESP 20; TEMP 97.5
--- NOTE | 2017-10-31 02:55 | ED ---
URI HPI - General Chief Complaint: Upper Respiratory Infection Stated Complaint: congestion Time Seen by Provider: 10/31/17 02:49 Source: patient, RN notes reviewed Mode of arrival: ambulatory Limitations: no limitations - History of Present Illness Initial Comments: This a 47-year-old male presents emergency Department chief complaint of nasal congestion. Patient states started yesterday he tried one dose of ALLERGY medication no relief. Patient denies any cough at this time states he was coughing earlier today denies any chest pain or shortness of breath. Denies fever, chills, headache, dizziness, ear pain, sore throat. Patient's had some sinus issues in the past he did have sinus surgery, to place in his right ear. Patient offers no other complaints at this time. Patient has no drunk drug ALLERGIES. - Related Data Home Medications Medication Instructions Recorded Confirmed Albuterol Nebulized [Ventolin 2.5 mg INHALATION RT-Q6H PRN 06/21/17 10/01/17 Nebulized] Ibuprofen [Motrin] 800 mg PO DAILY PRN 06/21/17 10/01/17 Esomeprazole Magnesium [NexIUM] 40 mg PO DAILY 07/05/17 10/01/17 FLUoxetine HCL [PROzac] 20 mg PO DAILY 07/05/17 10/01/17 Hydrochlorothiazide 25 mg PO DAILY 07/05/17 10/01/17 Lisinopril [Zestril] 10 mg PO DAILY 07/05/17 10/01/17 Montelukast [Singulair] 10 mg PO DAILY 07/05/17 10/01/17 Ondansetron HCl [Zofran] 8 mg PO BID PRN 07/05/17 10/01/17 Pravastatin Sodium [Pravachol] 20 mg PO DAILY 07/05/17 10/01/17 Aspirin 81 mg PO DAILY 10/01/17 10/01/17 Multivitamins, Thera [Multivitamin 1 tab PO DAILY 10/01/17 10/01/17 (formulary)] Sodium Chloride [Saline Nasal 1 spray EA NOSTRIL DAILY PRN 10/01/17 10/01/17 [place]] Previous Rx's Medication Instructions Recorded Sulfamethox-Tmp 800-160Mg [Bactrim 1 each PO Q12HR #20 tab 10/01/17 DS 800-160 mg] Fluticasone Nasal [place] [Flonase 2 spr EA NOSTRIL DAILY #1 bottle 10/31/17 Nasal [place]] Allergies Allergy/AdvReac Type Severity Reaction Status Date / Time No Known Allergies Allergy Verified 10/31/17 02:45 Review of Systems ROS Statement: Those systems with pertinent positive or pertinent negative responses have been documented in the HPI. ROS Other: All systems not noted in ROS Statement are negative. Past Medical History Past Medical History: Asthma, GERD/Reflux, Hyperlipidemia, Hypertension, Osteoarthritis (OA), Sleep Apnea/CPAP/BIPAP Additional Past Medical History / Comment(s): STATES UNABLE TO WEAR MACHINE, CURRENT TX FOR URI STARTED MEDS 05/26/14, vertigo History of Any Multi-Drug Resistant Organisms: None Reported Past Surgical History: Orthopedic Surgery Additional Past Surgical History / Comment(s): JORDAN KNEE ARTHROSCOPY, TESTICLE SX CHILD, nose surgery Past Anesthesia/Blood Transfusion Reactions: No Reported Reaction Past Psychological History: Anxiety Smoking Status: Current every day smoker Past Alcohol Use History: None Reported Past Drug Use History: None Reported - Past Family History Mother Family Medical History: No Reported History General Exam Limitations: no limitations General appearance: alert, in no apparent distress Head exam: Present: atraumatic, normocephalic, normal inspection Eye exam: Present: normal appearance, PERRL, EOMI. Absent: scleral icterus, conjunctival injection, periorbital swelling ENT exam: Present: mucous membranes moist, TM's normal bilaterally (PE tube in the right), normal external ear exam. Absent: normal oropharynx (Postnasal drainage) Neck exam: Present: normal inspection, full ROM. Absent: tenderness, meningismus, lymphadenopathy Respiratory exam: Present: normal lung sounds bilaterally. Absent: respiratory distress, wheezes, rales, rhonchi, stridor Cardiovascular Exam: Present: regular rate, normal rhythm, normal heart sounds. Absent: systolic murmur, diastolic murmur, rubs, gallop, clicks Course Vital Signs 10/31/17 02:42 Temperature 97.5 F L Pulse Rate 83 Respiratory 20 Rate Blood Pressure 140/85 O2 Sat by Pulse 99 Oximetry Medical Decision Making - Medical Decision Making 47-year-old male present emergency from for nasal congestion. This may be viral versus ALLERGY in nature. Patient is currently taking antibiotics for dental infection. This highly the to be bacterial in nature symptoms have been present for one to days. Patient we given Flonase and Sudafed return parameters were discussed. Disposition Clinical Impression: Nasal congestion Disposition: HOME SELF-CARE Condition: Stable Instructions: Upper Respiratory Infection (ED) Additional Instructions: Please return to the Emergency Department if symptoms worsen or any other concerns. Prescriptions: Fluticasone Nasal [place] [Flonase Nasal [place]] 2 spr EA NOSTRIL DAILY #1 bottle Referrals: Bessie Salgado MD [Primary Care Provider] - 1-2 days Time of Disposition: 02:55
== END 2017-10-31 03:12 | disposition home or self-care (01) ==
LOC: EC 02:39
DX: R09.81 Nasal congestion (principal); J45.909 Unspecified asthma, uncomplicated; K21.9 Gastro-esophageal reflux disease without esophagitis; E78.5 Hyperlipidemia, unspecified; I10 Essential (primary) hypertension; G47.30 Sleep apnea, unspecified; Z99.89 Dependence on other enabling machines and devices; F41.9 Anxiety disorder, unspecified; F17.200 Nicotine dependence, unspecified, uncomplicated; Z79.82 Long term (current) use of aspirin; Z79.899 Other long term (current) drug therapy
CPT/HCPCS: 99283

== ENCOUNTER 2017-12-12 02:41 | Emergency (ER) | payer MEDICARE, OTHER ==
[2017-12-12 02:49] VITALS: TEMP 97.4
[2017-12-12] MEDS ORDERED: IPRATROPIUM-ALBUTEROL 3 ML NEB INHALATION STA (03:01)
--- NOTE | 2017-12-12 03:03 | ED ---
SOB HPI - General Chief Complaint: Shortness of Breath Stated Complaint: SARY Time Seen by Provider: 12/12/17 02:53 Source: patient, family, RN notes reviewed Mode of arrival: ambulatory Limitations: no limitations - History of Present Illness Initial Comments: This is a 47-year-old male who presents to the emergency department with chief complaint of shortness of breath. Patient states that he does have a history of COPD and asthma. He states he woke from sleep this evening with shortness of breath. He states that this began 30 minutes prior to arrival to the emergency department. Patient states that he does not currently take any medication for his COPD. He is not on home oxygen. He also complains of some nasal congestion and cough that developed tonight. Denies any chest pain, fevers or chills, abdominal pain, nausea or vomiting, diarrhea or constipation, dizziness. - Related Data Home Medications Medication Instructions Recorded Confirmed Albuterol Nebulized [Ventolin 2.5 mg INHALATION RT-Q6H PRN 06/21/17 12/12/17 Nebulized] Ibuprofen [Motrin] 800 mg PO DAILY PRN 06/21/17 12/12/17 Esomeprazole Magnesium [NexIUM] 40 mg PO DAILY 07/05/17 12/12/17 FLUoxetine HCL [PROzac] 20 mg PO DAILY 07/05/17 12/12/17 Hydrochlorothiazide 25 mg PO DAILY 07/05/17 12/12/17 Lisinopril [Zestril] 10 mg PO DAILY 07/05/17 12/12/17 Montelukast [Singulair] 10 mg PO DAILY 07/05/17 12/12/17 Ondansetron HCl [Zofran] 8 mg PO BID PRN 07/05/17 12/12/17 Pravastatin Sodium [Pravachol] 20 mg PO DAILY 07/05/17 12/12/17 Aspirin 81 mg PO DAILY 10/01/17 12/12/17 Multivitamins, Thera [Multivitamin 1 tab PO DAILY 10/01/17 12/12/17 (formulary)] Sodium Chloride [Saline Nasal 1 spray EA NOSTRIL DAILY PRN 10/01/17 12/12/17 [place]] Previous Rx's Medication Instructions Recorded Fluticasone Nasal [place] [Flonase 2 spr EA NOSTRIL DAILY #1 bottle 10/31/17 Nasal [place]] predniSONE 20 mg PO BID #8 tab 12/12/17 Allergies Allergy/AdvReac Type Severity Reaction Status Date / Time No Known Allergies Allergy Verified 12/12/17 02:49 Review of Systems ROS Statement: Those systems with pertinent positive or pertinent negative responses have been documented in the HPI. ROS Other: All systems not noted in ROS Statement are negative. Past Medical History Past Medical History: Asthma, GERD/Reflux, Hyperlipidemia, Hypertension, Osteoarthritis (OA), Sleep Apnea/CPAP/BIPAP Additional Past Medical History / Comment(s): STATES UNABLE TO WEAR MACHINE, CURRENT TX FOR URI STARTED MEDS 05/26/14, vertigo History of Any Multi-Drug Resistant Organisms: None Reported Past Surgical History: Orthopedic Surgery Additional Past Surgical History / Comment(s): JORDAN KNEE ARTHROSCOPY, TESTICLE SX CHILD, nose surgery Past Anesthesia/Blood Transfusion Reactions: No Reported Reaction Past Psychological History: Anxiety Smoking Status: Current every day smoker Past Alcohol Use History: None Reported Past Drug Use History: None Reported - Past Family History Mother Family Medical History: No Reported History General Exam - General Exam Comments Initial Comments: General: Awake and alert, well-developed; in no apparent distress. HEENT: Head atraumatic, normocephalic. Pupils are equal, round and reactive to light. Extraocular movements intact. Oropharynx moist without erythema or exudate. Neck: Supple. Normal ROM. Cardiovascular: Regular rate and rhythm. No murmurs, rubs or gallops. Chest symmetrical. Respiratory: Lungs clear to auscultation bilaterally. No wheezes, rales or rhonchi. Normal respiratory effort with no use of accessory muscles. Musculoskeletal: Normal ROM, no tenderness bilateral upper and lower extremities. Skin: [place], warm and dry without rashes or lesions. Neurological: Alert and oriented x3. CN II-XII grossly intact. Speech is fluent and answers are appropriate. No focal neuro deficits. Psychiatric: Normal mood and affect. No overt signs of depression or anxiety noted. Limitations: no limitations (Initial vitals temperature 97.4, pulse 91, respirations 20, blood pressure 144/76, 98% on room air) Course Vital Signs 12/12/17 02:47 Temperature 97.4 F L Pulse Rate 91 Respiratory 20 Rate Blood Pressure 144/76 O2 Sat by Pulse 98 Oximetry Medical Decision Making - Medical Decision Making This is a 47-year-old male with history of COPD and asthma who presents to the emergency department with chief complaint of shortness of breath. Patient's vital signs have been stable and he is at 98% on room air. Does not appear to be in any acute distress. Lungs are clear to auscultation bilaterally. I did order a DuoNeb breathing treatment. After receiving this, patient stated that he felt his symptoms had improved. Patient denied chest pain, fevers or chills , abdominal pain, nausea or vomiting. EKG revealed normal sinus rhythm with evidence of new right bundle aicha block when compared to previous EKG in May 2017. CBC, CMP and coags were unremarkable. Troponin and cardiac profile were negative. Patient given a loading dose for prednisone. He will be discharged home with a prescription for 4 more days of prednisone. Patient' s vital signs are stable and he is in no acute distress. He will be discharged home at this time. He is in agreement with plan and voices understanding. All questions were answered. 12/12/17 3:08:00. Normal sinus rhythm. Right bundle branch block. T wave abnormality, consider lateral ischemia. Ventricular rate 78 bpm, CT interval 148, QRS duration 1:30, QT/QTc 410/467. No evidence of ST segment elevation or depression. - Radiology Data Radiology results: report reviewed, image reviewed Chest x-ray impression: Normal chest. No change. Disposition Clinical Impression: Shortness of breath Disposition: HOME SELF-CARE Condition: Good Instructions: Dyspnea (ED), COPD (Chronic Obstructive Pulmonary Disease) (ED) Additional Instructions: Please take medications as prescribed. Please follow up with primary care provider within 1-2 days. Return to emergency department if symptoms should worsen or any concerns arise. Prescriptions: predniSONE 20 mg PO BID #8 tab Is patient prescribed a controlled substance at discharge?: No Referrals: Bessie Salgado MD [Primary Care Provider] - 1-2 days Time of Disposition: 04:32
--- NOTE | 2017-12-12 03:22 | XR ---
EXAMINATION TYPE: XR chest 2V DATE OF EXAM: 12/12/2017 COMPARISON: 06/21/2017 HISTORY: Difficulty breathing TECHNIQUE: Frontal and lateral views of the chest are obtained. FINDINGS: Heart and mediastinum are normal. Lungs are clear. Diaphragm is normal. Bony thorax appear s normal. IMPRESSION: Normal chest. No change.
[2017-12-12 03:38] LABS: Basophils % (A) 0 %; Eosinophils # (A) 0.2 k/uL (0-0.7); Eosinophils % (A) 2 %; HCT 40.2 % (39.0-53.0); HGB 13.3 gm/dL (13.0-17.5); Lymphocytes # (A) 2.8 k/uL (1.0-4.8); Lymphocytes % (A) 24 %; MCH 29.3 pg (25.0-35.0); MCHC 33.1 g/dL (31.0-37.0); MCV 88.5 fL (80.0-100.0); Monocytes # (A) 0.7 k/uL (0-1.0); Monocytes % (A) 6 %; Neutrophils # (A) 7.8 k/uL (1.3-7.7); Neutrophils % (A) 67 %; Platelet Count 271 k/uL (150-450); RBC 4.54 m/uL (4.30-5.90); WBC 11.8 k/uL (3.8-10.6)
[2017-12-12 03:46] LABS: Partial Thromboplastin Time 24.1 sec (22.0-30.0)
[2017-12-12 03:53] LABS: ALT 36 U/L (21-72); AST 20 U/L (17-59); Albumin 3.7 g/dL (3.5-5.0); Alkaline Phosphatase 80 U/L (38-126); Anion Gap 13 mmol/L; Blood Urea Nitrogen 14 mg/dL (9-20); Calcium 9.4 mg/dL (8.4-10.2); Carbon Dioxide 26 mmol/L (22-30); Chloride 102 mmol/L (98-107); Glucose 125 mg/dL (74-99); Potassium 3.7 mmol/L (3.5-5.1); Sodium 141 mmol/L (137-145); Total Bilirubin 0.4 mg/dL (0.2-1.3); Total Protein 6.7 g/dL (6.3-8.2)
[2017-12-12 04:05] LABS: Creatine Kinase 128 U/L (55-170)
[2017-12-12 04:18] LABS: Creatine Kinase MB 1.2 ng/mL (0.0-2.4); Troponin I <0.012 ng/mL (0.000-0.034)
[2017-12-12 04:19] VITALS: BP 137/76; PULSE 79; RESP 19
[2017-12-12] MEDS ORDERED: predniSONE 50 MG TAB PO STA (04:26)
== END 2017-12-12 04:41 | disposition home or self-care (01) ==
LOC: EC 02:41
DX: J44.9 Chronic obstructive pulmonary disease, unspecified (principal); I45.10 Unspecified right bundle-branch block; E78.5 Hyperlipidemia, unspecified; I10 Essential (primary) hypertension; K21.9 Gastro-esophageal reflux disease without esophagitis; F41.9 Anxiety disorder, unspecified; F17.200 Nicotine dependence, unspecified, uncomplicated; Z79.82 Long term (current) use of aspirin; Z79.899 Other long term (current) drug therapy; Z98.890 Other specified postprocedural states
CPT/HCPCS: 99285; 36415; 94640; 93005; 80053; 82550; 82553; 84484; 85025; 85610; 85730; 71046; J7512

== ENCOUNTER 2017-12-17 04:31 | Emergency (ER) | payer MEDICARE, OTHER ==
[2017-12-17 04:42] VITALS: BP 131/83; PULSE 81; RESP 16; TEMP 96.9
--- NOTE | 2017-12-17 05:00 | ED ---
ENT HPI - General Chief complaint: ENT Stated complaint: Nasal Swelling/Pain Time Seen by Provider: 12/17/17 04:52 Source: patient, RN notes reviewed, old records reviewed Mode of arrival: ambulatory Limitations: no limitations - History of Present Illness Initial comments: This patient's 47-year-old male presents emergency Department chief complaint of left near pain. He reports that he was picking his nose and scratched the inner side of his nose. He reports that she's had some swelling over the past day over his left near. Denies any difficulty breathing. Denies any fever or chills. Denies any other symptoms at this time.Vision is history of asthma GERD hyperlipidemia and hypertension also arthritis and sleep apnea.Patient denies any recent fever, chills, shortness of breath, chest pain, back pain, abdominal pain, nausea vomiting, numbness or tingling, dysuria or hematuria, constipation or diarrhea, headaches or visual changes, or any other current symptoms - Related Data Home Medications Medication Instructions Recorded Confirmed Albuterol Nebulized [Ventolin 2.5 mg INHALATION RT-Q6H PRN 06/21/17 12/12/17 Nebulized] Ibuprofen [Motrin] 800 mg PO DAILY PRN 06/21/17 12/12/17 Esomeprazole Magnesium [NexIUM] 40 mg PO DAILY 07/05/17 12/12/17 FLUoxetine HCL [PROzac] 20 mg PO DAILY 07/05/17 12/12/17 Hydrochlorothiazide 25 mg PO DAILY 07/05/17 12/12/17 Lisinopril [Zestril] 10 mg PO DAILY 07/05/17 12/12/17 Montelukast [Singulair] 10 mg PO DAILY 07/05/17 12/12/17 Ondansetron HCl [Zofran] 8 mg PO BID PRN 07/05/17 12/12/17 Pravastatin Sodium [Pravachol] 20 mg PO DAILY 07/05/17 12/12/17 Aspirin 81 mg PO DAILY 10/01/17 12/12/17 Multivitamins, Thera [Multivitamin 1 tab PO DAILY 10/01/17 12/12/17 (formulary)] Sodium Chloride [Saline Nasal 1 spray EA NOSTRIL DAILY PRN 10/01/17 12/12/17 [place]] Previous Rx's Medication Instructions Recorded Fluticasone Nasal [place] [Flonase 2 spr EA NOSTRIL DAILY #1 bottle 10/31/17 Nasal [place]] predniSONE 20 mg PO BID #8 tab 12/12/17 Amoxic-Pot Clav 875-125Mg 1 tab PO Q12HR #20 tablet 12/17/17 [Augmentin 875-125] Mupirocin 2% Nasal Oint [Bactroban 1 applic NASAL BID #1 tube 12/17/17 2% Nasal Oint] Allergies Allergy/AdvReac Type Severity Reaction Status Date / Time No Known Allergies Allergy Verified 12/12/17 02:49 Review of Systems ROS Statement: Those systems with pertinent positive or pertinent negative responses have been documented in the HPI. ROS Other: All systems not noted in ROS Statement are negative. Past Medical History Past Medical History: Asthma, GERD/Reflux, Hyperlipidemia, Hypertension, Osteoarthritis (OA), Sleep Apnea/CPAP/BIPAP Additional Past Medical History / Comment(s): STATES UNABLE TO WEAR MACHINE, vertigo History of Any Multi-Drug Resistant Organisms: None Reported Past Surgical History: Orthopedic Surgery Additional Past Surgical History / Comment(s): JORDAN KNEE ARTHROSCOPY, TESTICLE SX CHILD, nose surgery Past Anesthesia/Blood Transfusion Reactions: No Reported Reaction Past Psychological History: Anxiety Smoking Status: Current every day smoker Past Alcohol Use History: None Reported Past Drug Use History: None Reported - Past Family History Mother Family Medical History: No Reported History General Exam - General Exam Comments Initial Comments: 47-year-old male. No distress. Limitations: no limitations General appearance: alert, in no apparent distress Head exam: Present: atraumatic, normocephalic, normal inspection Eye exam: Present: normal appearance, PERRL, EOMI. Absent: scleral icterus, conjunctival injection, periorbital swelling ENT exam: Present: normal exam, mucous membranes moist, other (Patient has tenderness and erythema over the inside of the left near. No significant facial swelling. No pain eye movements.) Neck exam: Present: normal inspection. Absent: tenderness, meningismus, lymphadenopathy Respiratory exam: Present: normal lung sounds bilaterally. Absent: respiratory distress, wheezes, rales, rhonchi, stridor Cardiovascular Exam: Present: regular rate, normal rhythm, normal heart sounds. Absent: systolic murmur, diastolic murmur, rubs, gallop, clicks GI/Abdominal exam: Present: soft, normal bowel sounds. Absent: distended, tenderness, guarding, rebound, rigid Extremities exam: Present: normal inspection, full ROM, normal capillary refill. Absent: tenderness, pedal edema, joint swelling, calf tenderness Back exam: Present: normal inspection Neurological exam: Present: alert, oriented X3, CN II-XII intact Course Vital Signs 12/17/17 04:38 Temperature 96.9 F L Pulse Rate 81 Respiratory 16 Rate Blood Pressure 131/83 O2 Sat by Pulse 97 Oximetry Medical Decision Making - Medical Decision Making Patient arrives to the emergency Department with left there pain and swelling for 1 day. He's scratch the inside of his nose and developed subsequent cellulitis afterwards. We'll start the patient on antibiotics and a mupirocin nasal cream. Discussed following up with PCP. All questions answered and return parameters were discussed. - Radiology Data Radiology results: report reviewed Disposition Clinical Impression: Swelling of nose Disposition: HOME SELF-CARE Condition: Good Instructions: Cellulitis (ED) Additional Instructions: Patient advised to take the medication as prescribed. 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 Return to the emergency department if any alarming signs or symptoms occur. Prescriptions: Amoxic-Pot Clav 875-125Mg [Augmentin 875-125] 1 tab PO Q12HR #20 tablet Mupirocin 2% Nasal Oint [Bactroban 2% Nasal Oint] 1 applic NASAL BID #1 tube Is patient prescribed a controlled substance at d/c from ED?: No If prescribed controlled substance>3 days was MAPS reviewed?: No When asked, does pt state using other controlled substances?: No Referrals: Bessie Salgado MD [Primary Care Provider] - 1-2 days Time of Disposition: 04:58
== END 2017-12-17 05:31 | disposition home or self-care (01) ==
LOC: EC 04:31
DX: J34.89 Other specified disorders of nose and nasal sinuses (principal); K21.9 Gastro-esophageal reflux disease without esophagitis; F41.9 Anxiety disorder, unspecified; J45.909 Unspecified asthma, uncomplicated; E78.5 Hyperlipidemia, unspecified; F17.200 Nicotine dependence, unspecified, uncomplicated; Z79.82 Long term (current) use of aspirin; Z79.899 Other long term (current) drug therapy
CPT/HCPCS: 99283

== ENCOUNTER 2018-02-25 15:13 | Emergency (ER) | payer MEDICARE, OTHER ==
[2018-02-25] MEDS ORDERED: ONDANSETRON 4 MG/2 ML VIAL IVP STA (16:04)
[2018-02-25] MEDS ORDERED: SODIUM CHLORIDE 0.9% 1,000 ML IV STA (16:04)
[2018-02-25] MEDS ORDERED: IBUPROFEN 600 MG TAB PO STA (16:05)
[2018-02-25] MEDS ORDERED: ACETAMINOPHEN TAB 500 MG TAB PO STA (16:05)
--- NOTE | 2018-02-25 16:06 | ED ---
Nausea/Vomiting/Diarrhea HPI - General Chief complaint: Nausea/Vomiting/Diarrhea Stated complaint: nausea/headache Time Seen by Provider: 02/25/18 15:46 Source: patient, RN notes reviewed, old records reviewed Mode of arrival: ambulatory Limitations: no limitations - History of Present Illness Initial comments: This patient is a 56 year old male presents withmother with CC of headache, nausea, cramps. Patient reports that he only had one glass of water today, and was out in the heat. Denies vomiting, abdominal pain, or chest pain. He is a smoker. He reports a mild wheezing, however he uses inhalers at home. He reports occasional diarrhea. Denies back pain. He has not had any motrin, tylenol. - Related Data Home Medications Medication Instructions Recorded Confirmed Albuterol Nebulized [Ventolin 2.5 mg INHALATION RT-Q6H PRN 06/21/17 12/12/17 Nebulized] Ibuprofen [Motrin] 800 mg PO DAILY PRN 06/21/17 12/12/17 Esomeprazole Magnesium [NexIUM] 40 mg PO DAILY 07/05/17 12/12/17 FLUoxetine HCL [PROzac] 20 mg PO DAILY 07/05/17 12/12/17 Hydrochlorothiazide 25 mg PO DAILY 07/05/17 12/12/17 Lisinopril [Zestril] 10 mg PO DAILY 07/05/17 12/12/17 Montelukast [Singulair] 10 mg PO DAILY 07/05/17 12/12/17 Ondansetron HCl [Zofran] 8 mg PO BID PRN 07/05/17 12/12/17 Pravastatin Sodium [Pravachol] 20 mg PO DAILY 07/05/17 12/12/17 Aspirin 81 mg PO DAILY 10/01/17 12/12/17 Multivitamins, Thera [Multivitamin 1 tab PO DAILY 10/01/17 12/12/17 (formulary)] Sodium Chloride [Saline Nasal 1 spray EA NOSTRIL DAILY PRN 10/01/17 12/12/17 [place]] Previous Rx's Medication Instructions Recorded Fluticasone Nasal [place] [Flonase 2 spr EA NOSTRIL DAILY #1 bottle 10/31/17 Nasal [place]] predniSONE 20 mg PO BID #8 tab 12/12/17 Amoxic-Pot Clav 875-125Mg 1 tab PO Q12HR #20 tablet 12/17/17 [Augmentin 875-125] Mupirocin 2% Nasal Oint [Bactroban 1 applic NASAL BID #1 tube 12/17/17 2% Nasal Oint] Allergies Allergy/AdvReac Type Severity Reaction Status Date / Time No Known Allergies Allergy Verified 02/25/18 15:14 Review of Systems ROS Statement: Those systems with pertinent positive or pertinent negative responses have been documented in the HPI. ROS Other: All systems not noted in ROS Statement are negative. Past Medical History Past Medical History: Asthma, GERD/Reflux, Hyperlipidemia, Hypertension, Osteoarthritis (OA), Sleep Apnea/CPAP/BIPAP Additional Past Medical History / Comment(s): migraines, vertigo History of Any Multi-Drug Resistant Organisms: None Reported Past Surgical History: Orthopedic Surgery Additional Past Surgical History / Comment(s): JORDAN KNEE ARTHROSCOPY, TESTICLE SX CHILD, nose surgery Past Anesthesia/Blood Transfusion Reactions: No Reported Reaction Past Psychological History: Anxiety Smoking Status: Current some day smoker Past Alcohol Use History: None Reported Past Drug Use History: None Reported - Past Family History Mother Family Medical History: No Reported History General Exam - General Exam Comments Initial Comments: Well appearing 47 year old male, no distress. Limitations: no limitations General appearance: alert, in no apparent distress Head exam: Present: atraumatic, normocephalic, normal inspection Eye exam: Present: normal appearance, PERRL, EOMI. Absent: scleral icterus, conjunctival injection, periorbital swelling ENT exam: Present: normal exam, mucous membranes moist Neck exam: Present: normal inspection. Absent: tenderness, meningismus, lymphadenopathy Respiratory exam: Present: normal lung sounds bilaterally, wheezes (minimal wheeze on forced expiration. ). Absent: respiratory distress, rales, rhonchi, stridor Cardiovascular Exam: Present: regular rate, normal rhythm, normal heart sounds. Absent: systolic murmur, diastolic murmur, rubs, gallop, clicks GI/Abdominal exam: Present: soft, normal bowel sounds. Absent: distended, tenderness, guarding, rebound, rigid Extremities exam: Present: normal inspection, full ROM, normal capillary refill. Absent: tenderness, pedal edema, joint swelling, calf tenderness Back exam: Present: normal inspection Neurological exam: Present: alert, oriented X3, CN II-XII intact Psychiatric exam: Present: normal affect, normal mood Skin exam: Present: warm, dry, intact, normal color. Absent: rash Course Vital Signs 02/25/18 02/25/18 15:14 18:25 Temperature 98.2 F 97.7 F Pulse Rate 90 75 Respiratory 20 18 Rate Blood Pressure 170/94 145/83 O2 Sat by Pulse 98 96 Oximetry Medical Decision Making - Medical Decision Making 47 year old male for multiple complaints, mainly headache, nausea, and not drinking enough on this very hot, 96 degree day. Patient complains of cramps in muscles as well. IV established and given ibuprofen and tylenol. Labs are unremarkable. He also had mild wheeze on forced expiratory, he has COPD. Vital signs are stable. Patient CXR was normal. Discussed follow up with PCP and return parameters discussed. - Lab Data Result diagrams: 02/25/18 16:50 02/25/18 16:50 Lab Results 02/25/18 02/25/18 Range/Units 16:50 16:50 WBC 10.7 H (3.8-10.6) k/uL RBC 4.36 (4.30-5.90) m/uL Hgb 13.3 (13.0-17.5) gm/dL Hct 39.6 (39.0-53.0) % MCV 90.9 (80.0-100.0) fL MCH 30.5 (25.0-35.0) pg MCHC 33.6 (31.0-37.0) g/dL RDW 13.8 (11.5-15.5) % Plt Count 248 (150-450) k/uL Neutrophils % 71 % Lymphocytes % 20 % Monocytes % 5 % Eosinophils % 2 % Basophils % 0 % Neutrophils # 7.6 (1.3-7.7) k/uL Lymphocytes # 2.2 (1.0-4.8) k/uL Monocytes # 0.5 (0-1.0) k/uL Eosinophils # 0.2 (0-0.7) k/uL Basophils # 0.0 (0-0.2) k/uL Sodium 141 (137-145) mmol/L Potassium 4.1 (3.5-5.1) mmol/L Chloride 107 (98-107) mmol/L Carbon Dioxide 25 (22-30) mmol/L Anion Gap 9 mmol/L BUN 17 (9-20) mg/dL Creatinine 0.94 (0.66-1.25) mg/dL Est GFR (CKD-EPI)AfAm >90 (>60 ml/min/1.73 sqM) Est GFR (CKD-EPI)NonAf >90 (>60 ml/min/1.73 sqM) Glucose 95 (74-99) mg/dL Calcium 8.8 (8.4-10.2) mg/dL Total Bilirubin 0.3 (0.2-1.3) mg/dL AST 23 (17-59) U/L ALT 35 (21-72) U/L Alkaline Phosphatase 87 (38-126) U/L Total Protein 6.5 (6.3-8.2) g/dL Albumin 3.7 (3.5-5.0) g/dL Amylase 33 (30-110) U/L Lipase 65 (23-300) U/L - Radiology Data Radiology results: report reviewed CXR is within normal limitis. Disposition Clinical Impression: Nausea, Headache Disposition: HOME SELF-CARE Condition: Good Instructions: Migraine Headache (ED) Additional Instructions: Patient advised to rest, remain hydrated, take Motrin or Tylenol for further headaches or pain. Follow-up with PCP. Return to the emergency department if any alarming signs or symptoms occur. Is patient prescribed a controlled substance at d/c from ED?: No When asked, does pt state using other controlled substances?: No If prescribed controlled substance>3 days was MAPS reviewed?: No If opioid is for acute pain is fill amount 7 days or less?: No If Rx opioid, was Start Talking consent form obtained?: No Referrals: Bessie Salgado MD [Primary Care Provider] - 1-2 days Time of Disposition: 17:54
[2018-02-25 16:59] LABS: Basophils % (A) 0 %; Eosinophils # (A) 0.2 k/uL (0-0.7); Eosinophils % (A) 2 %; HCT 39.6 % (39.0-53.0); HGB 13.3 gm/dL (13.0-17.5); Lymphocytes # (A) 2.2 k/uL (1.0-4.8); Lymphocytes % (A) 20 %; MCH 30.5 pg (25.0-35.0); MCHC 33.6 g/dL (31.0-37.0); MCV 90.9 fL (80.0-100.0); Mean Platelet Volume 7.8; Monocytes # (A) 0.5 k/uL (0-1.0); Monocytes % (A) 5 %; Neutrophils # (A) 7.6 k/uL (1.3-7.7); Neutrophils % (A) 71 %; Platelet Count 248 k/uL (150-450); RBC 4.36 m/uL (4.30-5.90); RDW 13.8 % (11.5-15.5); WBC 10.7 k/uL (3.8-10.6)
[2018-02-25 17:10] LABS: ALT 35 U/L (21-72); AST 23 U/L (17-59); Albumin 3.7 g/dL (3.5-5.0); Alkaline Phosphatase 87 U/L (38-126); Amylase 33 U/L (30-110); Anion Gap 9 mmol/L; Blood Urea Nitrogen 17 mg/dL (9-20); Calcium 8.8 mg/dL (8.4-10.2); Carbon Dioxide 25 mmol/L (22-30); Chloride 107 mmol/L (98-107); Glucose 95 mg/dL (74-99); Lipase 65 U/L (23-300); Potassium 4.1 mmol/L (3.5-5.1); Sodium 141 mmol/L (137-145); Total Bilirubin 0.3 mg/dL (0.2-1.3); Total Protein 6.5 g/dL (6.3-8.2)
--- NOTE | 2018-02-25 17:10 | XR ---
EXAMINATION TYPE: XR chest 2V DATE OF EXAM: 02/25/2018 COMPARISON: Prior chest x-ray dated 12/12/2017. HISTORY: Pain cramps to the extremities TECHNIQUE: Frontal and lateral views of the chest are obtained. FINDINGS: Both lungs are hyperexpanded. No pneumothorax or pleural effusions. There is no focal air s pace opacity. The cardiac silhouette size is borderline in size without vascular decompensation or p ulmonary edema. The osseous structures are intact. IMPRESSION: Borderline size heart with stable findings as compared with the prior exam without new in filtrate or vascular decompensation. No pneumothorax or pleural effusions.
[2018-02-25 18:27] VITALS: BP 145/83; PULSE 75; RESP 18; TEMP 97.7
== END 2018-02-25 18:27 | disposition home or self-care (01) ==
LOC: EC 15:13
DX: R11.0 Nausea (principal); R51 Headache; R19.7 Diarrhea, unspecified; R06.2 Wheezing; J44.9 Chronic obstructive pulmonary disease, unspecified; K21.9 Gastro-esophageal reflux disease without esophagitis; E78.5 Hyperlipidemia, unspecified; I10 Essential (primary) hypertension; F41.9 Anxiety disorder, unspecified; F17.200 Nicotine dependence, unspecified, uncomplicated; Z79.82 Long term (current) use of aspirin; Z79.899 Other long term (current) drug therapy
CPT/HCPCS: 99284; 96374; 96361; 36415; 80053; 82150; 83690; 85025; 71046; J2405

== ENCOUNTER 2018-06-18 14:09 | Emergency (ER) | payer MEDICARE, OTHER ==
--- NOTE | 2018-06-18 15:03 | ED ---
General Adult HPI - General Chief complaint: Upper Respiratory Infection Stated complaint: Cold Time Seen by Provider: 06/18/18 14:34 Source: patient Mode of arrival: ambulatory Limitations: no limitations - History of Present Illness Initial comments: 47-year-old male with past medical history of hypertension and COPD presenting today for chief complaint of body aches, chills and congestion x 1 day. Pt states that he has been experiencing some congestion for the past few days and cough. He states cough does not vary from his usual "smoking cough", no sputum production. Pt states that today he took a nap woke up and had night sweats, body aches. He stated he was overall not feeling well and presented for evaluation. Pt denies chest pain, shortness of breath varying from his baseline , dyspnea upon exertion, leg swelling, sore throat, ear pain, diarrhea, abdominal pain, calf pain or any other associated symptoms. Pt is not sure if he has had a fever or not but admits to chills. Remainder of ROS (-) patient denies any recent back pain, abdominal pain, nausea or vomiting, numbness or tingling, dysuria or hematuria, constipation or diarrhea, headaches or visual changes, or any other complaints. Upon arrival pt VS stable. - Related Data Home Medications Medication Instructions Recorded Confirmed Albuterol Nebulized [Ventolin 2.5 mg INHALATION RT-QID PRN 06/21/17 06/18/18 Nebulized] FLUoxetine HCL [PROzac] 20 mg PO DAILY 07/05/17 06/18/18 Hydrochlorothiazide 25 mg PO DAILY 07/05/17 06/18/18 Lisinopril [Zestril] 10 mg PO DAILY 07/05/17 06/18/18 Montelukast [Singulair] 10 mg PO DAILY 07/05/17 06/18/18 Pravastatin Sodium [Pravachol] 20 mg PO DAILY 07/05/17 06/18/18 Beclomethasone Dipropionate [Qvar 2 puff INHALATION RT-BID 06/18/18 06/18/18 80 mcg] Cetirizine HCl [Zyrtec] 10 mg PO DAILY PRN 06/18/18 06/18/18 Omeprazole 20 mg PO DAILY 06/18/18 06/18/18 Previous Rx's Medication Instructions Recorded Albuterol Inhaler [Ventolin Hfa 1 - 2 puff INHALATION RT-Q6H PRN 7 06/18/18 Inhaler] Days #1 inhaler Loratadine [Claritin] 5 mg PO DAILY 7 Days #7 tab 06/18/18 predniSONE 10 mg PO DAILY 4 Days #4 tab 06/18/18 Allergies Allergy/AdvReac Type Severity Reaction Status Date / Time No Known Allergies Allergy Verified 06/18/18 17:01 Review of Systems ROS Statement: Those systems with pertinent positive or pertinent negative responses have been documented in the HPI. ROS Other: All systems not noted in ROS Statement are negative. Constitutional: Reports: fever, chills, night sweats ENT: Denies: ear pain, throat pain Respiratory: Reports: cough, dyspnea (pt states that he has baseline dyspnea with no changes today- he state she sees a "lung doctor" and was told his "gut was too fat".). Denies: wheezes, hemoptysis, stridor Cardiovascular: Denies: chest pain, palpitations, dyspnea on exertion, orthopnea , edema, syncope Endocrine: Denies: fatigue Gastrointestinal: Denies: abdominal pain, nausea, vomiting, diarrhea, constipation, hematemesis, melena Genitourinary: Denies: urgency, dysuria, frequency, hematuria Musculoskeletal: Denies: back pain Skin: Denies: rash, lesions Neurological: Denies: headache, numbness, paresthesias, confusion, abnormal gait Past Medical History Past Medical History: Asthma, GERD/Reflux, Hyperlipidemia, Hypertension, Osteoarthritis (OA), Sleep Apnea/CPAP/BIPAP Additional Past Medical History / Comment(s): migraines, vertigo History of Any Multi-Drug Resistant Organisms: None Reported Past Surgical History: Orthopedic Surgery Additional Past Surgical History / Comment(s): JORDAN KNEE ARTHROSCOPY, TESTICLE SX CHILD, nose surgery Past Anesthesia/Blood Transfusion Reactions: No Reported Reaction Past Psychological History: Anxiety Smoking Status: Current every day smoker Past Alcohol Use History: None Reported Past Drug Use History: None Reported - Past Family History Mother Family Medical History: No Reported History General Exam - General Exam Comments Initial Comments: General: The patient is awake and alert, in no distress, and does not appear acutely ill. Eye: Pupils are equal, round and reactive to light, extra-ocular movements are intact. No nystagmus. There is normal conjunctiva bilaterally. No signs of icterus. Ears, nose, mouth and throat: There are moist mucous membranes and no oral lesions. Neck: The neck is supple, there is no tenderness or JVD. Cardiovascular: There is a regular rate and rhythm. No murmur, rub or gallop is appreciated. Respiratory: No signs of costal retractions, abdominal breathing or use of accessory muscles. No cyanosis. Respirations are non-labored, breath sounds are equal. No wheezes, stridor, rales. Mild rhonchi upon expiration in all lung hester. Gastrointestinal: Soft, non-distended, non-tender abdomen without masses or organomegaly noted. There is no rebound or guarding present. No CVA tenderness. Bowel sounds are unremarkable. Musculoskeletal: Normal ROM, no tenderness. Strength 5/5. Sensation intact. Radial pulses equal bilaterally 2+. Neurological: A&O x 3. CN II-XII intact, There are no obvious motor or sensory deficits. Coordination appears grossly intact. Speech is normal. Skin: Skin is warm and dry and no rashes or lesions are noted. Psychiatric: Cooperative, appropriate mood & affect, normal judgment. Limitations: no limitations Course Vital Signs 06/18/18 06/18/18 06/18/18 14:19 15:23 15:33 Temperature 98.2 F Pulse Rate 112 H 106 H 109 H Respiratory 20 Rate Blood Pressure 160/82 O2 Sat by Pulse 97 Oximetry 06/18/18 16:22 Temperature 97.7 F Pulse Rate 107 H Respiratory 18 Rate Blood Pressure 161/94 O2 Sat by Pulse 98 Oximetry EKG Findings - EKG Comments: EKG Findings:: EKG compared to November 2017. Ventricular rate 100 bpm, TN interval 150 ms, QRS samaritan 124 ms, QT/QTC 364/469 ms. RBBB noted on previous EKG no changes. No specific ST or T wave abdnormalities. No changes from 12/13. Ekg Reviewed by myself and Dr. Denise Medical Decision Making - Medical Decision Making EKG obtained due to HR, no changes from previous. CXR (-) PE revealed very mild rhonchi that resolved with one DuoNeb. Pt given prescription for albuterol inhaler, claritin for post nasal drip/congestion and prednisone. At this time I feel pt has viral URI/possible bronchitis, influenza testing negative. Case discussed with Dr. Denise who agreed with impression and plan. All findings discussed with patient. Pt states he is ready for discharge. Return parameters discussed in detail as well as the importance fof f/u with primary care provider. Patient was educated on smoking cessation. Pt discharged in stable condition, denied questions at that time. - Lab Data Lab Results 06/18/18 Range/Units 15:09 Influenza Type A RNA Not Detected (Not Detectd) Influenza Type B (PCR) Not Detected (Not Detectd) Disposition Clinical Impression: URI (upper respiratory infection) Disposition: HOME SELF-CARE Condition: Good Instructions: Upper Respiratory Infection (ED) Additional Instructions: Please use medication as discussed. Please follow-up with family doctor in the next 2 days. Please return to emergency room if the symptoms increase or worsen or for any other concerns. Prescriptions: Albuterol Inhaler [Ventolin Hfa Inhaler] 1 - 2 puff INHALATION RT-Q6H PRN 7 Days #1 inhaler PRN Reason: Wheezing Loratadine [Claritin] 5 mg PO DAILY 7 Days #7 tab predniSONE 10 mg PO DAILY 4 Days #4 tab Is patient prescribed a controlled substance at d/c from ED?: No Referrals: Bessie Salgado MD [Primary Care Provider] - 1-2 days Time of Disposition: 16:17
[2018-06-18] MEDS ORDERED: IPRATROPIUM-ALBUTEROL 3 ML NEB INHALATION STA (15:08)
[2018-06-18] MEDS ORDERED: ACETAMINOPHEN TAB 325 MG TAB PO STA (15:08)
--- NOTE | 2018-06-18 15:54 | XR ---
EXAMINATION TYPE: XR chest 2V DATE OF EXAM: 06/18/2018 COMPARISON: 02/25/2018 HISTORY: Chest pain TECHNIQUE: Frontal and lateral views of the chest are obtained. FINDINGS: There is no focal air space opacity. No evidence for pneumothorax. No pleural effusion. The cardiac silhouette size is within normal limits. The osseous structures are grossly intact. IMPRESSION: 1. No acute cardiopulmonary process.
[2018-06-18 16:23] VITALS: BP 161/94; PULSE 107; RESP 18; TEMP 97.7
== END 2018-06-18 16:26 | disposition home or self-care (01) ==
LOC: EC 14:09
DX: J06.9 Acute upper respiratory infection, unspecified (principal); J44.9 Chronic obstructive pulmonary disease, unspecified; K21.9 Gastro-esophageal reflux disease without esophagitis; E78.5 Hyperlipidemia, unspecified; I10 Essential (primary) hypertension; F41.9 Anxiety disorder, unspecified; M19.90 Unspecified osteoarthritis, unspecified site; G47.30 Sleep apnea, unspecified; F17.200 Nicotine dependence, unspecified, uncomplicated; Z99.89 Dependence on other enabling machines and devices; Z98.890 Other specified postprocedural states; Z79.51 Long term (current) use of inhaled steroids; Z79.899 Other long term (current) drug therapy
CPT/HCPCS: 71046; 87502; 94640; 99284

== ENCOUNTER 2018-06-26 12:52 | Emergency (ER) | payer MEDICARE, OTHER ==
[2018-06-26] MEDS ORDERED: KETOROLAC 30 MG/ML 1 ML VIAL IVP STA (13:30)
[2018-06-26] MEDS ORDERED: SODIUM CHLORIDE 0.9% 1,000 ML IV ONE (13:30)
[2018-06-26] MEDS ORDERED: diphenhydrAMINE 50 MG/ML 1 ML VIAL IVP STA (13:31)
--- NOTE | 2018-06-26 14:00 | ED ---
Headache HPI - General Chief Complaint: Headache Stated Complaint: Headache Mode of arrival: ambulatory Limitations: no limitations - History of Present Illness Initial Comments: 47-year-old male with past medical history of hypertension, hyperlipidemia, sleep apnea presented chief complaint of headache. Patient states he gets chronic migraines, he states they woke up this morning with a headache. He states it is not the worst headache of his life, he states that it is actually much less than his usual migraines. Patient states that he did try to sleep it off which has helped however he still has a dull aching headache. Patient states he has gotten a migraine medicine here in the past which has helped his headache. Patient denies any visual changes, diplopia, speech changes, ataxia, upper or lower extremity paresthesias or weakness, facial asymmetry, photophobia , neck stiffness, nausea, vomiting, confusion, abdominal pain, diarrhea, fever, chills, IV drug use or history of cancer. Remainder of ROS (-). Upon arrival pt appears well, non toxic. VS within normal limits, normotensive, afebrile. - Related Data Home Medications Medication Instructions Recorded Confirmed FLUoxetine HCL [PROzac] 20 mg PO DAILY 07/05/17 06/26/18 Hydrochlorothiazide 25 mg PO DAILY 07/05/17 06/26/18 Montelukast [Singulair] 10 mg PO DAILY 07/05/17 06/26/18 Esomeprazole Magnesium [NexIUM] 40 mg PO AC-[id number] 06/26/18 06/26/18 Fluticasone Propionate [Flovent 2 puff INHALATION RT-BID 06/26/18 06/26/18 Hfa 220 mcg] Ibuprofen [Motrin Ib] 200 mg PO Q4H PRN 06/26/18 06/26/18 Previous Rx's Medication Instructions Recorded Ibuprofen [Motrin] 800 mg PO Q8H PRN 7 Days #21 tab 06/26/18 Allergies Allergy/AdvReac Type Severity Reaction Status Date / Time No Known Allergies Allergy Verified 06/26/18 13:01 Review of Systems ROS Statement: Those systems with pertinent positive or pertinent negative responses have been documented in the HPI. ROS Other: All systems not noted in ROS Statement are negative. Constitutional: Denies: fever, chills, night sweats ENT: Denies: ear pain, throat pain Respiratory: Denies: cough, dyspnea, wheezes, hemoptysis, stridor Cardiovascular: Denies: chest pain, palpitations, dyspnea on exertion Endocrine: Denies: fatigue Gastrointestinal: Denies: abdominal pain, nausea, vomiting, diarrhea, constipation, hematemesis, melena, hematochezia Genitourinary: Denies: urgency, dysuria, frequency, hematuria Musculoskeletal: Denies: back pain Skin: Denies: rash, lesions Neurological: Reports: headache. Denies: weakness, numbness, paresthesias, confusion, abnormal gait, vertigo Past Medical History Past Medical History: Asthma, GERD/Reflux, Hyperlipidemia, Hypertension, Osteoarthritis (OA), Sleep Apnea/CPAP/BIPAP Additional Past Medical History / Comment(s): migraines, vertigo History of Any Multi-Drug Resistant Organisms: None Reported Past Surgical History: Orthopedic Surgery Additional Past Surgical History / Comment(s): JORDAN KNEE ARTHROSCOPY, TESTICLE SX CHILD, nose surgery Past Anesthesia/Blood Transfusion Reactions: No Reported Reaction Past Psychological History: Anxiety Smoking Status: Current every day smoker Past Alcohol Use History: None Reported Past Drug Use History: None Reported - Past Family History Mother Family Medical History: No Reported History General Exam - General Exam Comments Initial Comments: General: The patient is awake and alert, in no distress, and does not appear acutely ill. Eye: +3 mm pupils are equal, round and reactive to light, extra-ocular movements are intact. No APD, no conjugate gaze. No nystagmus. There is normal conjunctiva bilaterally. No signs of icterus. Ears, nose, mouth and throat: There are moist mucous membranes and no oral lesions. Neck: The neck is supple, there is no tenderness or JVD. Cardiovascular: There is a regular rate and rhythm. No murmur, rub or gallop is appreciated. Respiratory: Lungs are clear to auscultation, respirations are non-labored, breath sounds are equal. No wheezes, stridor, rales, or rhonchi. Gastrointestinal: Soft, non-distended, non-tender abdomen without masses or organomegaly noted. There is no rebound or guarding present. No CVA tenderness. Bowel sounds are unremarkable. Musculoskeletal: Normal ROM, no tenderness. Strength 5/5. Sensation intact. Pulses equal bilaterally 2+. Neurological: A&O x 3. 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 Able to follow simple verbal. Able to name a common object (pen). High quality, labial (pa) and lingual (la) speech. Low quality posterior pharynx/larynx (ga) voice sounds. Able to express general knowledge (days in a week). No hemineglect or inattention noted. Finger agnosia (-) and spatially oriented (identified L index finger touched R shoulder with L index finger). Light touch and temperature sensation present over the face, chest, abdomen, back, UE bilaterally, and LE bilaterally. Able to localize point during point localization b/l and extinction. No visible bulk atrophy, hypertrophy, fasciculations, or myoclonus of the UE or LE b/l. Full PROM in UE and LE b/l. Bilateral muscle strength 5/5 for the following muscles: deltoid, biceps, triceps, brachioradialis, wrist extensors/flexor, hip flexor, hip abductors/adductors, hamstrings, quadriceps, feet dorsiflexors/plantar flexors. Finger to nose, finger to the examiners finger, and heel to [place] coordinated and accurate b/l. Coordinated and even demonstration of hand flip, finger to thumb, and toe tap b/l. (-) Babinski. . Gait is coordinated and even in stride with tandem. Maintains balance with monopedal stance. (-) Romberg. (- ) pronator drift. No nuchal rigidity. (-) Brudzinskis and Kernig signs. Skin: Skin is warm and dry and no rashes or lesions are noted. Psychiatric: Cooperative, appropriate mood & affect, normal judgment. Limitations: no limitations Course Vital Signs 06/26/18 06/26/18 12:59 14:59 Temperature 97.8 F 98 F Pulse Rate 84 75 Respiratory 20 18 Rate Blood Pressure 126/80 139/85 O2 Sat by Pulse 98 98 Oximetry Medical Decision Making - Medical Decision Making Patient given migraine cocktail, he stated this alleviated his symptoms. There were no local neurological deficits upon examination, or alarming features of headache. At this time feel patient headache is consistent with his chronic migraines. Patient denies any associated neurological symptoms. He states he is ready for discharge. Case discussed with Dr. Vazquez in detail who agrees the patient is stable for discharge with primary care follow-up. Patient was given prescription for ibuprofen 800mg. Disposition Clinical Impression: Headache Disposition: HOME SELF-CARE Condition: Good Instructions: Acute Headache (ED) Additional Instructions: Please use over the counter pain medication as discussed. Please follow-up with family doctor in the next 2 days. Please return to emergency room if the symptoms increase or worsen or for any other concerns. Prescriptions: Ibuprofen [Motrin] 800 mg PO Q8H PRN 7 Days #21 tab PRN Reason: Pain Is patient prescribed a controlled substance at d/c from ED?: No Referrals: Bessie Salgado MD [Primary Care Provider] - 1-2 days Time of Disposition: 14:16
[2018-06-26 15:01] VITALS: BP 139/85; PULSE 75; RESP 18; TEMP 98
== END 2018-06-26 14:55 | disposition home or self-care (01) ==
LOC: EC 12:52
DX: R51 Headache (principal); J45.909 Unspecified asthma, uncomplicated; I10 Essential (primary) hypertension; K21.9 Gastro-esophageal reflux disease without esophagitis; F41.9 Anxiety disorder, unspecified; G47.30 Sleep apnea, unspecified; F17.200 Nicotine dependence, unspecified, uncomplicated; Z79.51 Long term (current) use of inhaled steroids; Z79.899 Other long term (current) drug therapy; Z99.89 Dependence on other enabling machines and devices; Z98.890 Other specified postprocedural states
CPT/HCPCS: 99283; 96374; 96375; 96361; J1200; J1885

== ENCOUNTER 2018-07-07 20:30 | Emergency (ER) | payer MEDICARE, OTHER ==
[2018-07-07] MEDS ORDERED: SODIUM CHLORIDE 0.9% 1,000 ML IV STA ×2 (20:58)
[2018-07-07] MEDS ORDERED: IPRATROPIUM-ALBUTEROL 3 ML NEB INHALATION STA (20:58)
--- NOTE | 2018-07-07 21:35 | XR ---
EXAMINATION TYPE: XR chest 2V DATE OF EXAM: 07/07/2018 COMPARISON: NONE HISTORY: Chest pain TECHNIQUE: Frontal and lateral views of the chest are obtained. FINDINGS: There is no focal air space opacity, pleural effusion, or pneumothorax seen. The cardiac silhouette size is within normal limits. The osseous structures are intact. IMPRESSION: No acute cardiopulmonary process.
[2018-07-07] MEDS ORDERED: cloNIDine HCL 0.1 MG TAB PO STA (21:37)
[2018-07-07 21:42] LABS: Basophils % (A) 0 %; Eosinophils # (A) 0.1 k/uL (0-0.7); Eosinophils % (A) 1 %; HCT 43.6 % (39.0-53.0); Lymphocytes # (A) 2.6 k/uL (1.0-4.8); Lymphocytes % (A) 15 %; MCH 29.9 pg (25.0-35.0); MCHC 32.2 g/dL (31.0-37.0); MCV 92.9 fL (80.0-100.0); Mean Platelet Volume 7.4; Monocytes # (A) 0.8 k/uL (0-1.0); Monocytes % (A) 5 %; Neutrophils % (A) 78 %; Platelet Count 310 k/uL (150-450); RDW 13.2 % (11.5-15.5); WBC 16.8 k/uL (3.8-10.6)
[2018-07-07 21:55] LABS: Partial Thromboplastin Time 24.5 sec (22.0-30.0); Prothrombin Time 10.1 sec (9.0-12.0)
[2018-07-07 21:59] LABS: ALT 20 U/L (21-72); AST 38 U/L (17-59); Albumin 3.8 g/dL (3.5-5.0); Alkaline Phosphatase 101 U/L (38-126); Anion Gap 11 mmol/L; Blood Urea Nitrogen 19 mg/dL (9-20); Calcium 9.9 mg/dL (8.4-10.2); Carbon Dioxide 20 mmol/L (22-30); Chloride 108 mmol/L (98-107); Glucose 169 mg/dL (74-99); Sodium 139 mmol/L (137-145); Total Bilirubin 0.6 mg/dL (0.2-1.3); Total Protein 7.4 g/dL (6.3-8.2)
[2018-07-07 22:00] LABS: Creatine Kinase 77 U/L (55-170)
[2018-07-07 22:01] LABS: Potassium 5.8 mmol/L (3.5-5.1)
--- NOTE | 2018-07-07 22:11 | ED ---
SOB HPI - General Source: patient, RN notes reviewed, old records reviewed Mode of arrival: ambulatory Limitations: no limitations <Roma Espinoza - Last Filed: 07/07/18 22:53> <Alessandra Hopkins - Last Filed: 07/08/18 23:46> - General Chief Complaint: Shortness of Breath Stated Complaint: SARY Time Seen by Provider: 07/07/18 20:37 - History of Present Illness Initial Comments: Patient is a 47-year-old male with history of COPD, presents emergency department today with chief complaint of difficulty breathing 15 minutes prior to arrival. Patient reports that he has no chest pain. He denies any significant coughing. He does state that he has morning coughing due to smoking. He denies any fever or chills. Denies any productive cough. Patient relates that he sees Dr. Perdue for pulmonology. (Roma Espinoza) - Related Data Home Medications Medication Instructions Recorded Confirmed FLUoxetine HCL [PROzac] 20 mg PO DAILY 07/05/17 06/26/18 Hydrochlorothiazide 25 mg PO DAILY 07/05/17 06/26/18 Montelukast [Singulair] 10 mg PO DAILY 07/05/17 06/26/18 Esomeprazole Magnesium [NexIUM] 40 mg PO AC-BRKFST 06/26/18 06/26/18 Fluticasone Propionate [Flovent 2 puff INHALATION RT-BID 06/26/18 06/26/18 Hfa 220 mcg] Ibuprofen [Motrin Ib] 200 mg PO Q4H PRN 06/26/18 06/26/18 Previous Rx's Medication Instructions Recorded Ibuprofen [Motrin] 800 mg PO Q8H PRN 7 Days #21 tab 06/26/18 predniSONE 50 mg PO DAILY #5 tablet 07/07/18 Allergies Allergy/AdvReac Type Severity Reaction Status Date / Time No Known Allergies Allergy Verified 07/07/18 20:35 Review of Systems ROS Other: All systems not noted in ROS Statement are negative. <Roma Espinoza - Last Filed: 07/07/18 22:53> ROS Other: All systems not noted in ROS Statement are negative. <Alessandra Hopkins - Last Filed: 07/08/18 23:46> ROS Statement: Those systems with pertinent positive or pertinent negative responses have been documented in the HPI. Past Medical History Past Medical History: Asthma, GERD/Reflux, Hyperlipidemia, Hypertension, Osteoarthritis (OA), Sleep Apnea/CPAP/BIPAP Additional Past Medical History / Comment(s): migraines, vertigo History of Any Multi-Drug Resistant Organisms: None Reported Past Surgical History: Orthopedic Surgery Additional Past Surgical History / Comment(s): JORDAN KNEE ARTHROSCOPY, TESTICLE SX CHILD, nose surgery Past Anesthesia/Blood Transfusion Reactions: No Reported Reaction Past Psychological History: Anxiety Smoking Status: Current every day smoker Past Alcohol Use History: None Reported Past Drug Use History: None Reported - Past Family History Mother Family Medical History: No Reported History <Roma Espinoza - Last Filed: 07/07/18 22:53> General Exam Limitations: no limitations General appearance: alert, in no apparent distress Head exam: Present: atraumatic, normocephalic, normal inspection Eye exam: Present: normal appearance, PERRL, EOMI. Absent: scleral icterus, conjunctival injection, periorbital swelling ENT exam: Present: normal exam, mucous membranes moist Neck exam: Present: normal inspection. Absent: tenderness, meningismus, lymphadenopathy Respiratory exam: Present: wheezes (Slight wheezing). Absent: normal lung sounds bilaterally, respiratory distress, rales, rhonchi, stridor Cardiovascular Exam: Present: regular rate, normal rhythm, normal heart sounds. Absent: systolic murmur, diastolic murmur, rubs, gallop, clicks GI/Abdominal exam: Present: soft, normal bowel sounds. Absent: distended, tenderness, guarding, rebound, rigid Extremities exam: Present: normal inspection, full ROM, normal capillary refill. Absent: tenderness, pedal edema, joint swelling, calf tenderness Back exam: Present: normal inspection Neurological exam: Present: alert, oriented X3, CN II-XII intact Psychiatric exam: Present: normal affect, normal mood Skin exam: Present: warm, dry, intact, normal color. Absent: rash <Roma Espinoza - Last Filed: 07/07/18 22:53> <Alessandra Hopkins - Last Filed: 07/08/18 23:46> - General Exam Comments Initial Comments: Well-appearing 47-year-old male. No acute distress. (Roma Espinoza) Vital Signs 07/07/18 07/07/18 07/07/18 20:33 21:51 21:52 Temperature 97.7 F Pulse Rate 93 89 72 Respiratory 20 20 Rate Blood Pressure 190/71 135/63 O2 Sat by Pulse 99 98 Oximetry 07/07/18 07/07/18 22:01 23:06 Temperature 98.5 F Pulse Rate 72 80 Respiratory 18 Rate Blood Pressure 134/70 O2 Sat by Pulse 98 Oximetry Medical Decision Making - Lab Data Result diagrams: 07/07/18 21:25 07/07/18 21:25 - Radiology Data Radiology results: report reviewed <Roma Espinoza - Last Filed: 07/07/18 22:53> - Lab Data Result diagrams: 07/07/18 21:25 07/07/18 21:25 <Alessandra Hopkins - Last Filed: 07/08/18 23:46> - Medical Decision Making Asians 47-year-old male presents emergency department today with chief complaint of shortness of breath 15 minutes prior to onset of arrival. Slight wheezing noted. He has history of COPD. He continues to smoke. Total of 3 minutes of smoking cessation was discussed the Patient. Patient EKG shows no acute changes. White blood cell count is mildly elevated at 16,000. Chest x- ray was negative for any acute process. There was slightly elevated potassium of 5.8 however there is hemolysis noted. Patient does feel better after receiving DuoNeb treatment. On it is negative. At this time Patient be discharged with a short course of steroid will follow-up with PCP likely related to COPD exacerbation. Patient agrees to plan will comply. Return parameters were discussed. (Roma Espinoza) I was available for consultation in the emergency department. The history and physical exam were done by the midlevel provider. I was consulted for this patient's care. I reviewed the case with the midlevel provider and based on their presentation of the patient, I agree with the assessment, medical decision making and plan of care as documented. (Alessandra Hopkins) - Lab Data Lab Results 07/07/18 07/07/18 07/07/18 Range/Units 21:25 21:25 21:25 WBC 16.8 H (3.8-10.6) k/uL RBC 4.70 (4.30-5.90) m/uL Hgb 14.0 (13.0-17.5) gm/dL Hct 43.6 (39.0-53.0) % MCV 92.9 (80.0-100.0) fL MCH 29.9 (25.0-35.0) pg MCHC 32.2 (31.0-37.0) g/dL RDW 13.2 (11.5-15.5) % Plt Count 310 (150-450) k/uL Neutrophils % 78 % Lymphocytes % 15 % Monocytes % 5 % Eosinophils % 1 % Basophils % 0 % Neutrophils # 13.0 H (1.3-7.7) k/uL Lymphocytes # 2.6 (1.0-4.8) k/uL Monocytes # 0.8 (0-1.0) k/uL Eosinophils # 0.1 (0-0.7) k/uL Basophils # 0.0 (0-0.2) k/uL PT (9.0-12.0) sec INR (<1.2) APTT (22.0-30.0) sec Sodium 139 (137-145) mmol/L Potassium 5.8 H (3.5-5.1) mmol/L Chloride 108 H (98-107) mmol/L Carbon Dioxide 20 L (22-30) mmol/L Anion Gap 11 mmol/L BUN 19 (9-20) mg/dL Creatinine 0.99 (0.66-1.25) mg/dL Est GFR (CKD-EPI)AfAm >90 (>60 ml/min/1.73 sqM) Est GFR (CKD-EPI)NonAf >90 (>60 ml/min/1.73 sqM) Glucose 169 H (74-99) mg/dL Calcium 9.9 (8.4-10.2) mg/dL Total Bilirubin 0.6 (0.2-1.3) mg/dL AST 38 (17-59) U/L ALT 20 L (21-72) U/L Alkaline Phosphatase 101 (38-126) U/L Total Creatine Kinase 77 (55-170) U/L CK-MB (CK-2) 1.0 (0.0-2.4) ng/mL CK-MB (CK-2) Rel Index 1.3 Troponin I <0.012 (0.000-0.034) ng/mL Total Protein 7.4 (6.3-8.2) g/dL Albumin 3.8 (3.5-5.0) g/dL 07/07/18 Range/Units 21:25 WBC (3.8-10.6) k/uL RBC (4.30-5.90) m/uL Hgb (13.0-17.5) gm/dL Hct (39.0-53.0) % MCV (80.0-100.0) fL MCH (25.0-35.0) pg MCHC (31.0-37.0) g/dL RDW (11.5-15.5) % Plt Count (150-450) k/uL Neutrophils % % Lymphocytes % % Monocytes % % Eosinophils % % Basophils % % Neutrophils # (1.3-7.7) k/uL Lymphocytes # (1.0-4.8) k/uL Monocytes # (0-1.0) k/uL Eosinophils # (0-0.7) k/uL Basophils # (0-0.2) k/uL PT 10.1 (9.0-12.0) sec INR 1.0 (<1.2) APTT 24.5 (22.0-30.0) sec Sodium (137-145) mmol/L Potassium (3.5-5.1) mmol/L Chloride (98-107) mmol/L Carbon Dioxide (22-30) mmol/L Anion Gap mmol/L BUN (9-20) mg/dL Creatinine (0.66-1.25) mg/dL Est GFR (CKD-EPI)AfAm (>60 ml/min/1.73 sqM) Est GFR (CKD-EPI)NonAf (>60 ml/min/1.73 sqM) Glucose (74-99) mg/dL Calcium (8.4-10.2) mg/dL Total Bilirubin (0.2-1.3) mg/dL AST (17-59) U/L ALT (21-72) U/L Alkaline Phosphatase (38-126) U/L Total Creatine Kinase (55-170) U/L CK-MB (CK-2) (0.0-2.4) ng/mL CK-MB (CK-2) Rel Index Troponin I (0.000-0.034) ng/mL Total Protein (6.3-8.2) g/dL Albumin (3.5-5.0) g/dL 07/07/18 22:33 EKG shows sinus rhythm right bundle branch block. Abnormal EKG noted. Ventricular rate of 84 bpm.. Intervals 136 most seconds. QRS ration 120. QT QTc is 382/451 ms. (Roma Espinoza) - Radiology Data Normal chest x-ray. Negative for any acute cardiopulmonary process. (Roma Espinoza) Disposition Is patient prescribed a controlled substance at d/c from ED?: No Time of Disposition: 22:54 <Roma Espinoza - Last Filed: 07/07/18 22:53> <Alessandra Hopkins - Last Filed: 07/08/18 23:46> Clinical Impression: Dyspnea, COPD exacerbation Disposition: HOME SELF-CARE Condition: Good Additional Instructions: Continue at home breathing treatments and the steroids. Return to emergency department if any alarming signs or symptoms occur. Prescriptions: predniSONE 50 mg PO DAILY #5 tablet Referrals: Bessie Salgado MD [Primary Care Provider] - 1-2 days
[2018-07-07 22:34] LABS: Troponin I <0.012 ng/mL (0.000-0.034)
[2018-07-07 23:06] VITALS: BP 134/70; PULSE 80; RESP 18; TEMP 98.5
== END 2018-07-07 23:07 | disposition home or self-care (01) ==
LOC: EC 20:30
DX: J44.1 Chronic obstructive pulmonary disease with (acute) exacerbation (principal); Z71.6 Tobacco abuse counseling; F41.9 Anxiety disorder, unspecified; I10 Essential (primary) hypertension; K21.9 Gastro-esophageal reflux disease without esophagitis; G47.30 Sleep apnea, unspecified; F17.200 Nicotine dependence, unspecified, uncomplicated; Z79.51 Long term (current) use of inhaled steroids; Z79.899 Other long term (current) drug therapy
CPT/HCPCS: 36415; 71046; 80053; 82550; 82553; 84484; 85025; 85610; 85730; 93005; 94640; 96360; 99285

== ENCOUNTER 2018-07-14 16:30 | Emergency (ER) | payer MEDICARE, OTHER ==
[2018-07-14 16:48] VITALS: BP 151/89; PULSE 91; RESP 18; TEMP 98.5
[2018-07-14] MEDS ORDERED: KETOROLAC 60 MG/2 ML VIAL IM STA (16:58)
[2018-07-14] MEDS ORDERED: diphenhydrAMINE 50 MG CAP PO STA (16:58)
[2018-07-14] MEDS ORDERED: METOCLOPRAMIDE 5 MG/ML 2 ML VIAL IM STA (16:58)
--- NOTE | 2018-07-14 17:44 | ED ---
General Adult HPI - General Chief complaint: Headache Stated complaint: Migraine Time Seen by Provider: 07/14/18 16:49 Source: patient, RN notes reviewed Mode of arrival: ambulatory Limitations: no limitations - History of Present Illness Initial comments: 47-year-old male presents emergency Department chief complaint of headache, body aches. Patient states that he developed a headache today he did take some ibuprofen earlier which helped some but states he did not take another dose. Patient states his chronic migraine issues. Patient also complains that he has body aches. He states he's had a slight cough but it's improving. He is resistance in emergency department for this also. Patient denies fever, chills. Denies any nausea vomiting diarrhea constipation. Patient denies any sick contacts has not tried any other medications for his headache. - Related Data Home Medications Medication Instructions Recorded Confirmed FLUoxetine HCL [PROzac] 20 mg PO DAILY 07/05/17 06/26/18 Hydrochlorothiazide 25 mg PO DAILY 07/05/17 06/26/18 Montelukast [Singulair] 10 mg PO DAILY 07/05/17 06/26/18 Esomeprazole Magnesium [NexIUM] 40 mg PO AC-BRKFST 06/26/18 06/26/18 Fluticasone Propionate [Flovent 2 puff INHALATION RT-BID 06/26/18 06/26/18 Hfa 220 mcg] Ibuprofen [Motrin Ib] 200 mg PO Q4H PRN 06/26/18 06/26/18 Previous Rx's Medication Instructions Recorded Ibuprofen [Motrin] 800 mg PO Q8H PRN 7 Days #21 tab 06/26/18 predniSONE 50 mg PO DAILY #5 tablet 07/07/18 Allergies Allergy/AdvReac Type Severity Reaction Status Date / Time No Known Allergies Allergy Verified 07/07/18 20:35 Review of Systems ROS Statement: Those systems with pertinent positive or pertinent negative responses have been documented in the HPI. ROS Other: All systems not noted in ROS Statement are negative. Past Medical History Past Medical History: Asthma, GERD/Reflux, Hyperlipidemia, Hypertension, Osteoarthritis (OA), Sleep Apnea/CPAP/BIPAP Additional Past Medical History / Comment(s): migraines, vertigo History of Any Multi-Drug Resistant Organisms: None Reported Past Surgical History: Orthopedic Surgery Additional Past Surgical History / Comment(s): JORDAN KNEE ARTHROSCOPY, TESTICLE SX CHILD, nose surgery Past Anesthesia/Blood Transfusion Reactions: No Reported Reaction Past Psychological History: Anxiety Smoking Status: Current every day smoker Past Alcohol Use History: None Reported Past Drug Use History: None Reported - Past Family History Mother Family Medical History: No Reported History General Exam Limitations: no limitations General appearance: alert, in no apparent distress Head exam: Present: atraumatic, normocephalic, normal inspection Eye exam: Present: normal appearance, PERRL, EOMI. Absent: scleral icterus, conjunctival injection, periorbital swelling ENT exam: Present: normal exam, normal oropharynx, mucous membranes moist, TM's normal bilaterally, normal external ear exam Neck exam: Present: normal inspection, full ROM. Absent: tenderness, meningismus, lymphadenopathy Respiratory exam: Present: normal lung sounds bilaterally. Absent: respiratory distress, wheezes, rales, rhonchi, stridor Cardiovascular Exam: Present: regular rate, normal rhythm, normal heart sounds. Absent: systolic murmur, diastolic murmur, rubs, gallop, clicks Neurological exam: Present: alert, oriented X3, CN II-XII intact, reflexes normal, other (Finger to nose intact bilaterally). Absent: motor sensory deficit Skin exam: Present: warm, dry, intact, normal color. Absent: rash Course Vital Signs 07/14/18 16:45 Temperature 98.5 F Pulse Rate 91 Respiratory 18 Rate Blood Pressure 151/89 O2 Sat by Pulse 97 Oximetry Medical Decision Making - Medical Decision Making 47-year-old male presented for headache, muscle aches. Patient had influenza swab negative. Patient feels improved after Toradol, Reglan and Benadryl. Patient will be discharged return parameters were discussed. - Lab Data Lab Results 07/14/18 Range/Units 16:50 Influenza Type A RNA Not Detected (Not Detectd) Influenza Type B (PCR) Not Detected (Not Detectd) Disposition Clinical Impression: Headache, Arthralgia Disposition: HOME SELF-CARE Condition: Stable Instructions: Acute Headache (ED) Additional Instructions: Please return to the Emergency Department if symptoms worsen or any other concerns. Is patient prescribed a controlled substance at d/c from ED?: No Referrals: Bessie Salgado MD [Primary Care Provider] - 1-2 days Time of Disposition: 18:53
== END 2018-07-14 18:57 | disposition home or self-care (01) ==
LOC: EC 16:30
DX: R51 Headache (principal); M25.50 Pain in unspecified joint; M79.10 Myalgia, unspecified site; R05 Cough; J45.909 Unspecified asthma, uncomplicated; K21.9 Gastro-esophageal reflux disease without esophagitis; I10 Essential (primary) hypertension; G47.30 Sleep apnea, unspecified; F41.9 Anxiety disorder, unspecified; F17.200 Nicotine dependence, unspecified, uncomplicated; Z86.69 Personal history of other diseases of the nervous system and sense organs; Z99.89 Dependence on other enabling machines and devices; Z98.890 Other specified postprocedural states; Z79.51 Long term (current) use of inhaled steroids; Z79.899 Other long term (current) drug therapy
CPT/HCPCS: 87502; 99283; 96372 ×2; J2765; J1885

== ENCOUNTER 2018-08-01 15:18 | Emergency (ER) | payer MEDICARE, OTHER ==
[2018-08-01] MEDS ORDERED: predniSONE 20 MG TAB PO STA (16:17)
[2018-08-01] MEDS ORDERED: PROCHLORPERAZINE 5 MG TAB PO STA (16:17)
[2018-08-01] MEDS ORDERED: IBUPROFEN 800 MG TAB PO STA (16:17)
[2018-08-01] MEDS ORDERED: diphenhydrAMINE 50 MG CAP PO STA (16:17)
[2018-08-01] MEDS ORDERED: ACETAMINOPHEN TAB 500 MG TAB PO STA (16:17)
--- NOTE | 2018-08-01 17:24 | ED ---
Headache HPI - General Chief Complaint: Headache Stated Complaint: headache Time Seen by Provider: 08/01/18 15:24 Source: RN notes reviewed, old records reviewed Mode of arrival: ambulatory Limitations: no limitations - History of Present Illness Initial Comments: This is a 48-year-old male the ER for eversion of headache. Patient has continuous persistent headache and migraine 5 days. History of migraine. Patient states she was seen recently for migraine was unable to fill prescription secondary to insurance coverage issues. No fevers no trauma. No neck pain. No recent drug or alcohol abuse. MD Complaint: headache, "migraine" -: days(s) Onset Description: gradual Location: frontal Severity: moderate Severity scale (1-10): 6 Quality: aching, throbbing Consistency: constant, intermittent Improves With: medication Worsens With: none Context: occurred at rest Associated Symptoms: photophobia Other Symptoms: other (None) Treatments Prior to Arrival: other (None) - Related Data Home Medications Medication Instructions Recorded Confirmed FLUoxetine HCL [PROzac] 20 mg PO DAILY 07/05/17 08/01/18 Hydrochlorothiazide 25 mg PO DAILY 07/05/17 08/01/18 Montelukast [Singulair] 10 mg PO DAILY 07/05/17 08/01/18 Esomeprazole Magnesium [NexIUM] 40 mg PO AC-BRKFST 06/26/18 08/01/18 Fluticasone Propionate [Flovent 2 puff INHALATION RT-BID 06/26/18 08/01/18 Hfa 220 mcg] Albuterol Inhaler [Ventolin Hfa 2 puff INHALATION RT-Q6H PRN 07/27/18 08/01/18 Inhaler] Artificial Tears-Hypromellose 1 drop BOTH EYES QID 07/27/18 08/01/18 [Artificial Tear Drops] Multivitamins, Thera [Multivitamin 1 tab PO DAILY 07/27/18 08/01/18 (formulary)] Previous Rx's Medication Instructions Recorded Naproxen [Naprosyn] 500 mg PO Q12HR PRN #30 tab 08/01/18 Prochlorperazine [Compazine] 5 mg PO Q6HR PRN #30 tab 08/01/18 hydrOXYzine HCL [Atarax] 25 mg PO TID PRN #30 tab 08/01/18 Allergies Allergy/AdvReac Type Severity Reaction Status Date / Time No Known Allergies Allergy Verified 08/01/18 15:39 Review of Systems ROS Statement: Those systems with pertinent positive or pertinent negative responses have been documented in the HPI. ROS Other: All systems not noted in ROS Statement are negative. Past Medical History Past Medical History: Asthma, GERD/Reflux, Hyperlipidemia, Hypertension, Osteoarthritis (OA), Sleep Apnea/CPAP/BIPAP Additional Past Medical History / Comment(s): migraines, vertigo History of Any Multi-Drug Resistant Organisms: None Reported Past Surgical History: Orthopedic Surgery Additional Past Surgical History / Comment(s): JORDAN KNEE ARTHROSCOPY, TESTICLE SX CHILD, nose surgery Past Anesthesia/Blood Transfusion Reactions: No Reported Reaction Past Psychological History: Anxiety Smoking Status: Current every day smoker Past Alcohol Use History: None Reported Past Drug Use History: None Reported - Past Family History Mother Family Medical History: No Reported History General Exam - General Exam Comments Initial Comments: NIH of 0, no neurological deficit Limitations: no limitations General appearance: alert, in no apparent distress Head exam: Present: atraumatic, normocephalic, normal inspection Eye exam: Present: normal appearance, PERRL, EOMI. Absent: scleral icterus, conjunctival injection, periorbital swelling ENT exam: Present: normal exam, mucous membranes moist Neck exam: Present: normal inspection. Absent: tenderness, meningismus, lymphadenopathy Respiratory exam: Present: normal lung sounds bilaterally. Absent: respiratory distress, wheezes, rales, rhonchi, stridor Cardiovascular Exam: Present: regular rate, normal rhythm, normal heart sounds. Absent: systolic murmur, diastolic murmur, rubs, gallop, clicks GI/Abdominal exam: Present: soft, normal bowel sounds. Absent: distended, tenderness, guarding, rebound, rigid Extremities exam: Present: normal inspection, full ROM, normal capillary refill. Absent: tenderness, pedal edema, joint swelling, calf tenderness Back exam: Present: normal inspection Neurological exam: Present: alert, oriented X3, CN II-XII intact Psychiatric exam: Present: normal affect, normal mood Skin exam: Present: warm, dry, intact, normal color. Absent: rash Course Vital Signs 08/01/18 08/01/18 08/01/18 15:19 17:39 18:02 Temperature 97.3 F L 98.0 F Pulse Rate 86 79 Respiratory 20 18 Rate Blood Pressure 139/84 137/81 O2 Sat by Pulse 99 97 Oximetry - Reevaluation(s) Reevaluation #1: Corrected and prior visits are reviewed Headache is now resolved Medical Decision Making - Medical Decision Making 48 male the ER for evasive headache recurrent headache migraine headache. Patient's headache is improved and controlled here in the emergency room patient can be discharged home Disposition Clinical Impression: Migraine Disposition: HOME SELF-CARE Condition: Good Instructions: Acute Headache (ED) Prescriptions: hydrOXYzine HCL [Atarax] 25 mg PO TID PRN #30 tab PRN Reason: Headache Naproxen [Naprosyn] 500 mg PO Q12HR PRN #30 tab PRN Reason: Headache Prochlorperazine [Compazine] 5 mg PO Q6HR PRN #30 tab PRN Reason: Headache Is patient prescribed a controlled substance at d/c from ED?: No Referrals: Bessie Salgado MD [Primary Care Provider] - 1-2 days
[2018-08-01 17:41] VITALS: BP 137/81; PULSE 79; RESP 18
[2018-08-01 18:03] VITALS: TEMP 98
--- NOTE | 2018-08-03 03:27 | CDI ---
Documentation Clarification OP Dear Dr. Zoie Rausch. Please do addendum to ED report for missing HPI and Physical examination. Thank you, [facility] [employer] If you have any questions, please contact [employer] at [phone] [facility]
== END 2018-08-01 18:03 | disposition home or self-care (01) ==
LOC: EC 15:18
DX: G43.909 Migraine, unspecified, not intractable, without status migrainosus (principal); J45.909 Unspecified asthma, uncomplicated; K21.9 Gastro-esophageal reflux disease without esophagitis; I10 Essential (primary) hypertension; F17.200 Nicotine dependence, unspecified, uncomplicated; G47.30 Sleep apnea, unspecified; Z99.89 Dependence on other enabling machines and devices; Z79.51 Long term (current) use of inhaled steroids; Z79.899 Other long term (current) drug therapy; Z53.20 Procedure and treatment not carried out because of patient's decision for unspecified reasons
CPT/HCPCS: 99283; J7512

== ENCOUNTER → 2018-08-27 | Outpatient (CLI) | payer MEDICARE, OTHER ==
--- NOTE | 2018-08-28 15:08 | MR ---
EXAMINATION TYPE: MR brain wo con DATE OF EXAM: 08/27/2018 COMPARISON: CT brain dated 07/05/2017 HISTORY: Headache TECHNIQUE: Multiplanar, multisequence images of the brain and brainstem is performed without intravenous contras t. FINDINGS: Diffusion weighted images demonstrate no evidence of a recent infarct or other diffusion ab normality. There is no extra-axial fluid collection. The ventricular system and cisternal spaces are normal in size and appearance. The brain volume is age appropriate. Midline structures demonstrate normal morphology. The craniocervical junction appears within normal limits.. The dural venous sinuses appear patent. The visualized sinuses demonstrate minimal mucosal t hickening within the left maxillary sinus and ethmoid sinuses but are otherwise clear and the globes are intact. There is a questionable serrated appearance of the lateral ventricles however this is favored to repr esent motion artifact given the patient's severe claustrophobia. There is T2 hyperintensity throughout the periventricular white matter predominantly within the parie lenka and occipital lobes as well as the posterior frontal lobe such as on T2 axial fat sat image 23. T here is also T2/FLAIR hyperintensity within the pontine tegmen some such as on image 11. This imaging finding has been previously termed the face of the miniature panda. Patchy T2/FLAIR hyperintensity i s also seen within the clement such as on image 10 and within the posterior limbs of the internal capsul es. IMPRESSION: 1. Nonspecific white matter changes throughout. Findings can be seen in Bienvenido's disease and should b e correlated with serum ceruloplasmin and levels, urine copper and ophthalmologic exam to evaluate fo r catheter flushing rings. Differential diagnosis also includes ADEM, multiple sclerosis, nonspecific encephalitis or vasculitis. 2. Minimal paranasal sinus disease. 3. No acute infarct, midline shift or mass effect.
== END | disposition home or self-care (01) ==
LOC: RADMRIMAIN 07:31
PROVIDERS: ATTEND Family Medicine
DX: R90.89 Other abnormal findings on diagnostic imaging of central nervous system (principal); R51 Headache
CPT/HCPCS: 70551

== ENCOUNTER 2018-09-09 01:20 | Emergency (ER) | payer MEDICARE, OTHER ==
--- NOTE | 2018-09-09 02:42 | XR ---
EXAMINATION TYPE: XR chest 2V DATE OF EXAM: 09/09/2018 COMPARISON: 07/07/2018 HISTORY: Chest pain TECHNIQUE: Frontal and lateral views of the chest are obtained. FINDINGS: Heart and mediastinum are normal. Lungs are clear. Diaphragm is normal. Bony thorax is int act. IMPRESSION: Normal chest. No change.
--- NOTE | 2018-09-09 03:52 | ED ---
URI HPI - General Chief Complaint: Upper Respiratory Infection Stated Complaint: flu symptoms Time Seen by Provider: 09/09/18 02:48 Source: patient Mode of arrival: ambulatory Limitations: no limitations - History of Present Illness Initial Comments: 's patient is a 48-year-old man who presents to be evaluated for suspected influenza. The patient states that over the past day he has developed cough and some congestion. The patient became concerned because his brother reportedly after developing influenza and pneumonia a few years ago. The patient denies fever or chills. He is not having any dyspnea. No palpitations or chest pain. The cough has largely been nonproductive but occasionally there is some whitish sputum. MD Complaint: cough, nasal congestion Onset/Timin -: days(s) Severity: mild Consistency: constant Improves With: nothing Worsens With: nothing Associated Symptoms: cough - Related Data Home Medications Medication Instructions Recorded Confirmed FLUoxetine HCL [PROzac] 20 mg PO DAILY 07/05/17 08/01/18 Hydrochlorothiazide 25 mg PO DAILY 07/05/17 08/01/18 Montelukast [Singulair] 10 mg PO DAILY 07/05/17 08/01/18 Esomeprazole Magnesium [NexIUM] 40 mg PO AC-BRKFST 06/26/18 08/01/18 Fluticasone Propionate [Flovent 2 puff INHALATION RT-BID 06/26/18 08/01/18 Hfa 220 mcg] Albuterol Inhaler [Ventolin Hfa 2 puff INHALATION RT-Q6H PRN 07/27/18 08/01/18 Inhaler] Artificial Tears-Hypromellose 1 drop BOTH EYES QID 07/27/18 08/01/18 [Artificial Tear Drops] Multivitamins, Thera [Multivitamin 1 tab PO DAILY 07/27/18 08/01/18 (formulary)] Previous Rx's Medication Instructions Recorded Naproxen [Naprosyn] 500 mg PO Q12HR PRN #30 tab 08/01/18 Prochlorperazine [Compazine] 5 mg PO Q6HR PRN #30 tab 08/01/18 hydrOXYzine HCL [Atarax] 25 mg PO TID PRN #30 tab 08/01/18 Albuterol Inhaler [Ventolin Hfa 1 - 2 puff INHALATION Q6HR PRN #1 09/09/18 Inhaler] inhaler predniSONE 20 mg PO BID #8 tab 09/09/18 Allergies Allergy/AdvReac Type Severity Reaction Status Date / Time No Known Allergies Allergy Verified 09/09/18 01:35 Review of Systems ROS Statement: Those systems with pertinent positive or pertinent negative responses have been documented in the HPI. ROS Other: All systems not noted in ROS Statement are negative. Constitutional: Denies: fever, chills Respiratory: Reports: cough. Denies: dyspnea, wheezes, hemoptysis Cardiovascular: Denies: chest pain, palpitations, edema Skin: Denies: rash Neurological: Denies: headache, weakness, numbness Past Medical History Past Medical History: Asthma, GERD/Reflux, Hyperlipidemia, Hypertension, Osteoarthritis (OA), Sleep Apnea/CPAP/BIPAP Additional Past Medical History / Comment(s): migraines, vertigo History of Any Multi-Drug Resistant Organisms: None Reported Past Surgical History: Orthopedic Surgery Additional Past Surgical History / Comment(s): JORDAN KNEE ARTHROSCOPY, TESTICLE SX CHILD, nose surgery Past Anesthesia/Blood Transfusion Reactions: No Reported Reaction Past Psychological History: Anxiety Smoking Status: Current every day smoker Past Alcohol Use History: None Reported Past Drug Use History: None Reported - Past Family History Mother Family Medical History: No Reported History General Exam Limitations: no limitations General appearance: alert, in no apparent distress Head exam: Present: atraumatic, normocephalic Eye exam: Present: normal appearance ENT exam: Present: normal oropharynx Respiratory exam: Present: wheezes. Absent: respiratory distress, rales, rhonchi, stridor, accessory muscle use, decreased breath sounds, prolonged expiratory Cardiovascular Exam: Present: regular rate, normal rhythm, normal heart sounds. Absent: systolic murmur, diastolic murmur, rubs, gallop GI/Abdominal exam: Present: soft. Absent: tenderness Extremities exam: Present: normal inspection, normal capillary refill. Absent: pedal edema Neurological exam: Present: alert Skin exam: Present: warm, dry, intact, normal color. Absent: rash Course Vital Signs 09/09/18 09/09/18 01:33 02:23 Temperature 98.8 F Pulse Rate 84 Respiratory 18 20 Rate Blood Pressure 144/83 O2 Sat by Pulse 94 L Oximetry Medical Decision Making - Lab Data Lab Results 09/09/18 Range/Units 02:21 Influenza Type A RNA Not Detected (Not Detectd) Influenza Type B (PCR) Not Detected (Not Detectd) Disposition Clinical Impression: Bronchitis Disposition: HOME SELF-CARE Condition: Good Instructions: Acute Bronchitis (ED) Prescriptions: Albuterol Inhaler [Ventolin Hfa Inhaler] 1 - 2 puff INHALATION Q6HR PRN #1 inhaler PRN Reason: Wheezing predniSONE 20 mg PO BID #8 tab Is patient prescribed a controlled substance at d/c from ED?: No Referrals: Bessie Salgado MD [Primary Care Provider] - 1-2 days
[2018-09-09] MEDS ORDERED: predniSONE 20 MG TAB PO STA (03:53)
[2018-09-09 04:18] VITALS: BP 146/86; PULSE 85; RESP 18; TEMP 97.9
== END 2018-09-09 04:18 | disposition home or self-care (01) ==
LOC: EC 01:20
DX: J45.909 Unspecified asthma, uncomplicated (principal); F41.9 Anxiety disorder, unspecified; K21.9 Gastro-esophageal reflux disease without esophagitis; I10 Essential (primary) hypertension; G47.30 Sleep apnea, unspecified; F17.200 Nicotine dependence, unspecified, uncomplicated; Z79.51 Long term (current) use of inhaled steroids; Z79.899 Other long term (current) drug therapy
CPT/HCPCS: 87502; 71046; 99283; J7512

== ENCOUNTER → 2018-09-17 | Outpatient (CLI) | payer MEDICARE, OTHER | END | disposition home or self-care (01) | LOC: LABWHC1 09:33 | PROVIDERS: ATTEND Family Medicine | DX: R90.89 Other abnormal findings on diagnostic imaging of central nervous system (principal); R51 Headache | CPT/HCPCS: 36415; 82525; 82565; 84520 ==

== ENCOUNTER 2018-11-20 12:48 | Emergency (ER) | payer MEDICARE, OTHER ==
[2018-11-20] MEDS ORDERED: MORPHINE SULFATE 4 MG/ML SYRINGE IV STA (13:10)
[2018-11-20] MEDS ORDERED: SODIUM CHLORIDE 0.9% 1,000 ML IV STA (13:10)
[2018-11-20] MEDS ORDERED: KETOROLAC 30 MG/ML 1 ML VIAL IVP STA (13:10)
[2018-11-20] MEDS ORDERED: METOCLOPRAMIDE 5 MG/ML 2 ML VIAL IVP STA (13:10)
[2018-11-20] MEDS ORDERED: diphenhydrAMINE 50 MG/ML 1 ML VIAL IVP STA (13:10)
[2018-11-20 13:36] LABS: Basophils % (A) 0 %; Eosinophils # (A) 0.2 k/uL (0-0.7); Eosinophils % (A) 2 %; HCT 45.2 % (39.0-53.0); HGB 14.7 gm/dL (13.0-17.5); Lymphocytes # (A) 2.3 k/uL (1.0-4.8); Lymphocytes % (A) 20 %; MCHC 32.6 g/dL (31.0-37.0); MCV 88.8 fL (80.0-100.0); Mean Platelet Volume 7.8; Monocytes # (A) 0.5 k/uL (0-1.0); Monocytes % (A) 4 %; Neutrophils # (A) 8.6 k/uL (1.3-7.7); Neutrophils % (A) 74 %; Platelet Count 314 k/uL (150-450); RBC 5.08 m/uL (4.30-5.90); RDW 13.6 % (11.5-15.5); WBC 11.7 k/uL (3.8-10.6)
[2018-11-20 13:46] LABS: ALT 31 U/L (21-72); AST 17 U/L (17-59); Albumin 4.1 g/dL (3.5-5.0); Alkaline Phosphatase 77 U/L (38-126); Anion Gap 10 mmol/L; Blood Urea Nitrogen 11 mg/dL (9-20); Calcium 9.5 mg/dL (8.4-10.2); Carbon Dioxide 27 mmol/L (22-30); Chloride 101 mmol/L (98-107); Glucose 124 mg/dL (74-99); Potassium 3.9 mmol/L (3.5-5.1); Sodium 138 mmol/L (137-145); Total Bilirubin 0.6 mg/dL (0.2-1.3); Total Protein 7.1 g/dL (6.3-8.2)
--- NOTE | 2018-11-20 14:04 | ED ---
General Adult HPI - General Chief complaint: Headache Stated complaint: Migraine Time Seen by Provider: 11/20/18 12:55 Source: patient, RN notes reviewed, old records reviewed Mode of arrival: ambulatory Limitations: no limitations - History of Present Illness Initial comments: 48-year-old male presenting with chief complaint of frontal headache. Patient has history of chronic migraines. States that his headache is identical to previous migraines which she gets several monthly. Patient was recently started on new medication which she is unaware of the name states this has not been helping his headaches. He denies photophobia. Denies vision changes. Denies focal numbness or weakness. Denies nausea or vomiting. Denies chest pain or dyspnea. Denies fever or chills. Denies abdominal pain. - Related Data Home Medications Medication Instructions Recorded Confirmed FLUoxetine HCL [PROzac] 20 mg PO DAILY 07/05/17 11/20/18 Hydrochlorothiazide 25 mg PO DAILY 07/05/17 11/20/18 Montelukast [Singulair] 10 mg PO DAILY 07/05/17 11/20/18 Esomeprazole Magnesium [NexIUM] 40 mg PO AC-BRKFST 06/26/18 11/20/18 Fluticasone Propionate [Flovent 2 puff INHALATION RT-BID 06/26/18 11/20/18 Hfa 220 mcg] Albuterol Inhaler [Ventolin Hfa 2 puff INHALATION RT-Q6H PRN 07/27/18 11/20/18 Inhaler] Artificial Tears-Hypromellose 1 drop BOTH EYES QID 07/27/18 11/20/18 [Artificial Tear Drops] Multivitamins, Thera [Multivitamin 1 tab PO DAILY 07/27/18 11/20/18 (formulary)] Previous Rx's Medication Instructions Recorded Naproxen [Naprosyn] 500 mg PO Q12HR PRN #30 tab 08/01/18 hydrOXYzine HCL [Atarax] 25 mg PO TID PRN #30 tab 08/01/18 Allergies Allergy/AdvReac Type Severity Reaction Status Date / Time No Known Allergies Allergy Verified 11/20/18 14:37 Review of Systems ROS Statement: Those systems with pertinent positive or pertinent negative responses have been documented in the HPI. ROS Other: All systems not noted in ROS Statement are negative. Past Medical History Past Medical History: Asthma, GERD/Reflux, Hyperlipidemia, Hypertension, Osteoarthritis (OA), Sleep Apnea/CPAP/BIPAP Additional Past Medical History / Comment(s): migraines, vertigo History of Any Multi-Drug Resistant Organisms: None Reported Past Surgical History: Orthopedic Surgery Additional Past Surgical History / Comment(s): JORDAN KNEE ARTHROSCOPY, TESTICLE SX CHILD, nose surgery Past Anesthesia/Blood Transfusion Reactions: No Reported Reaction Past Psychological History: Anxiety Smoking Status: Current every day smoker Past Alcohol Use History: None Reported Past Drug Use History: None Reported - Past Family History Mother Family Medical History: No Reported History General Exam Limitations: no limitations General appearance: alert, in no apparent distress Head exam: Present: atraumatic, normocephalic Eye exam: Present: normal appearance, PERRL, EOMI ENT exam: Present: normal exam Neck exam: Present: normal inspection, full ROM. Absent: tenderness, meningismus Respiratory exam: Present: normal lung sounds bilaterally. Absent: respiratory distress, wheezes, rales Cardiovascular Exam: Present: regular rate, normal rhythm GI/Abdominal exam: Present: soft. Absent: distended, tenderness, guarding Extremities exam: Present: normal inspection, normal capillary refill. Absent: pedal edema Neurological exam: Present: alert, oriented X3, CN II-XII intact, normal gait. Absent: motor sensory deficit Psychiatric exam: Present: normal affect, normal mood Skin exam: Present: warm, dry, intact. Absent: cyanosis, diaphoretic Course Vital Signs 11/20/18 12:49 Temperature 97.7 F Pulse Rate 109 H Respiratory 18 Rate Blood Pressure 131/80 O2 Sat by Pulse 99 Oximetry Medical Decision Making - Medical Decision Making 48-year-old male with chronic migraine presents for evaluation of headache. Patient's headache is frontal, consistent with previous migraine. Patient royce es any associated symptoms, no focal numbness or weakness, no vision changes, no photophobia. Given symptomatic relief in the emergency department. On reevaluation he is resting comfortably, he denies any headache at the time of reevaluation. He will return with any worsening or changing symptoms. He will follow-up with his neurologist. - Lab Data Result diagrams: 11/20/18 13:26 11/20/18 13:26 Lab Results 11/20/18 11/20/18 Range/Units 13:26 13:26 WBC 11.7 H (3.8-10.6) k/uL RBC 5.08 (4.30-5.90) m/uL Hgb 14.7 (13.0-17.5) gm/dL Hct 45.2 (39.0-53.0) % MCV 88.8 (80.0-100.0) fL MCH 29.0 (25.0-35.0) pg MCHC 32.6 (31.0-37.0) g/dL RDW 13.6 (11.5-15.5) % Plt Count 314 (150-450) k/uL Neutrophils % 74 % Lymphocytes % 20 % Monocytes % 4 % Eosinophils % 2 % Basophils % 0 % Neutrophils # 8.6 H (1.3-7.7) k/uL Lymphocytes # 2.3 (1.0-4.8) k/uL Monocytes # 0.5 (0-1.0) k/uL Eosinophils # 0.2 (0-0.7) k/uL Basophils # 0.0 (0-0.2) k/uL Sodium 138 (137-145) mmol/L Potassium 3.9 (3.5-5.1) mmol/L Chloride 101 (98-107) mmol/L Carbon Dioxide 27 (22-30) mmol/L Anion Gap 10 mmol/L BUN 11 (9-20) mg/dL Creatinine 0.86 (0.66-1.25) mg/dL Est GFR (CKD-EPI)AfAm >90 (>60 ml/min/1.73 sqM) Est GFR (CKD-EPI)NonAf >90 (>60 ml/min/1.73 sqM) Glucose 124 H (74-99) mg/dL Calcium 9.5 (8.4-10.2) mg/dL Total Bilirubin 0.6 (0.2-1.3) mg/dL AST 17 (17-59) U/L ALT 31 (21-72) U/L Alkaline Phosphatase 77 (38-126) U/L Total Protein 7.1 (6.3-8.2) g/dL Albumin 4.1 (3.5-5.0) g/dL Disposition Clinical Impression: Headache, Migraine Disposition: HOME SELF-CARE Condition: Good Instructions (If sedation given, give patient instructions): Acute Headache (ED) Additional Instructions: Please follow up with your neurologist. Is patient prescribed a controlled substance at d/c from ED?: No Referrals: Bessie Salgado MD [Primary Care Provider] - 1-2 days Time of Disposition: 14:47
[2018-11-20 15:01] VITALS: BP 125/76; PULSE 81; RESP 16; TEMP 97.6
== END 2018-11-20 15:01 | disposition home or self-care (01) ==
LOC: EC 12:48
DX: G43.909 Migraine, unspecified, not intractable, without status migrainosus (principal); J45.909 Unspecified asthma, uncomplicated; K21.9 Gastro-esophageal reflux disease without esophagitis; I10 Essential (primary) hypertension; F41.9 Anxiety disorder, unspecified; F17.200 Nicotine dependence, unspecified, uncomplicated; G47.30 Sleep apnea, unspecified; Z99.89 Dependence on other enabling machines and devices; Z79.51 Long term (current) use of inhaled steroids; Z79.899 Other long term (current) drug therapy
CPT/HCPCS: 36415; 80053; 85025; 99284; 96374; 96375 ×3; 96361; J2270; J1200; J2765; J1885

== ENCOUNTER 2019-01-02 17:40 | Emergency (ER) | payer MEDICARE, OTHER ==
[2019-01-02 18:00] VITALS: PULSE 83; RESP 16; TEMP 98.4
[2019-01-02] MEDS ORDERED: ONDANSETRON 4 MG/2 ML VIAL IVP STA (18:41)
[2019-01-02] MEDS ORDERED: DIAZEPAM 5 MG TAB PO STA (18:41)
[2019-01-02] MEDS ORDERED: KETOROLAC 30 MG/ML 1 ML VIAL IVP STA (18:41)
[2019-01-02] MEDS ORDERED: SODIUM CHLORIDE 0.9% 1,000 ML IV ONE (18:42)
[2019-01-02] MEDS ORDERED: diphenhydrAMINE 50 MG/ML 1 ML VIAL IVP STA (18:42)
[2019-01-02 18:58] VITALS: BP 139/80
[2019-01-02] MEDS ORDERED: ONDANSETRON ODT 4 MG TAB PO STA (19:17)
[2019-01-02] MEDS ORDERED: diphenhydrAMINE 50 MG CAP PO STA (19:17)
[2019-01-02] MEDS ORDERED: KETOROLAC 30 MG/ML 1 ML VIAL IM STA (19:18)
--- NOTE | 2019-01-02 19:52 | ED ---
Headache HPI - General Chief Complaint: Headache Stated Complaint: Headache Time Seen by Provider: 01/02/19 18:25 Mode of arrival: ambulatory Limitations: no limitations - History of Present Illness Initial Comments: 48-year-old male presenting today for chief complaint of headache. Patient states he struggles from chronic migraines. Patient states he has had a recent MRI of the brain he denies any abnormality. Patient states his headache today which began this morning came on gradually. He states is typical characteristic of his migraines. Patient describes as frontal dull aching. He denies any nausea vomiting visual changes diplopia or weakness of the upper or lower extremities, speech changes, gait changes head trauma fever or chills night sweats or neck stiffness. Patient states he does not want imaging studies he is here for treatment of headache. Patient states a migraine cocktail usually helps alleviate his symptoms. Patient states he does take a prophylactic medication for migraines however he is unable to recall the name. Patient states that this did not work today. Remaining review of systems negative upon arrival patient appears well - Related Data Home Medications Medication Instructions Recorded Confirmed FLUoxetine HCL [PROzac] 20 mg PO DAILY 07/05/17 11/20/18 Hydrochlorothiazide 25 mg PO DAILY 07/05/17 11/20/18 Montelukast [Singulair] 10 mg PO DAILY 07/05/17 11/20/18 Esomeprazole Magnesium [NexIUM] 40 mg PO AC-BRKFST 06/26/18 11/20/18 Fluticasone Propionate [Flovent 2 puff INHALATION RT-BID 06/26/18 11/20/18 Hfa 220 mcg] Albuterol Inhaler [Ventolin Hfa 2 puff INHALATION RT-Q6H PRN 07/27/18 11/20/18 Inhaler] Artificial Tears-Hypromellose 1 drop BOTH EYES QID 07/27/18 11/20/18 [Artificial Tear Drops] Multivitamins, Thera [Multivitamin 1 tab PO DAILY 07/27/18 11/20/18 (formulary)] Previous Rx's Medication Instructions Recorded Naproxen [Naprosyn] 500 mg PO Q12HR PRN #30 tab 08/01/18 hydrOXYzine HCL [Atarax] 25 mg PO TID PRN #30 tab 08/01/18 Allergies Allergy/AdvReac Type Severity Reaction Status Date / Time No Known Allergies Allergy Verified 01/02/19 18:00 Review of Systems ROS Statement: Those systems with pertinent positive or pertinent negative responses have been documented in the HPI. ROS Other: All systems not noted in ROS Statement are negative. Past Medical History Past Medical History: Asthma, GERD/Reflux, Hyperlipidemia, Hypertension, Osteoarthritis (OA), Sleep Apnea/CPAP/BIPAP Additional Past Medical History / Comment(s): migraines, vertigo History of Any Multi-Drug Resistant Organisms: None Reported Past Surgical History: Orthopedic Surgery Additional Past Surgical History / Comment(s): JORDAN KNEE ARTHROSCOPY, TESTICLE SX CHILD, nose surgery Past Anesthesia/Blood Transfusion Reactions: No Reported Reaction Past Psychological History: Anxiety Smoking Status: Current every day smoker Past Alcohol Use History: None Reported Past Drug Use History: None Reported - Past Family History Mother Family Medical History: No Reported History General Exam - General Exam Comments Initial Comments: General: The patient is awake and alert, in no distress, and does not appear acutely ill. Eye: +3 mm pupils are equal, round and reactive to light, extra-ocular movements are intact. No nystagmus. There is normal conjunctiva bilaterally. No signs of icterus. Ears, nose, mouth and throat: There are moist mucous membranes and no oral lesions. Neck: The neck is supple, there is no tenderness or JVD. Cardiovascular: There is a regular rate and rhythm. No murmur, rub or gallop is appreciated. Respiratory: Lungs are clear to auscultation, respirations are non-labored, breath sounds are equal. No wheezes, stridor, rales, or rhonchi. Gastrointestinal: [Soft, non-distended, non-tender abdomen without masses or organomegaly noted. There is no rebound or guarding present. No CVA tenderness. Bowel sounds are unremarkable.] Musculoskeletal: Normal ROM, no tenderness. Strength 5/5. Sensation intact. Pulses equal bilaterally 2+. Neurological: A&O x 3. CN II-XII intact ,memory intact to immediately, intermediate and care home recall. Able to follow simple verbal. Able to name a common object (pen). High quality, labial (pa) and lingual (la) speech. Low quality posterior pharynx/larynx (ga) voice sounds. Able to express general knowledge (days in a week). No hemineglect or inattention noted. Finger agnosia (-) and spatially oriented (identified L index finger touched R shoulder with L index finger). Light touch and temperature sensation present over the face, chest, abdomen, back, UE bilaterally, and LE bilaterally. Able to localize point during point localization b/l and extinction. No visible bulk atrophy, hypertrophy, fasciculations, or myoclonus of the UE or LE b/l. Full PROM in UE and LE b/l. Bilateral muscle strength 5/5 for the following muscles: deltoid, biceps, triceps, brachioradialis, wrist extensors/flexor, hip flexor, hip abductors/adductors, hamstrings, quadriceps, feet dorsiflexors/plantar flexors. Finger to nose, finger to the examiners finger, and heel to montilla coordinated and accurate b/l. Coordinated and even demonstration of hand flip, finger to thumb, and toe tap b/l. Gait is coordinated and even in stride with tandem, toe and heel walk. Maintains balance with monopedal stance. (-) Romberg. (-) pronator drift. No nuchal rigidity. (-) Brudzinskis and Kernig signs. Skin: Skin is warm and dry and no rashes or lesions are noted. Psychiatric: Cooperative, appropriate mood & affect, normal judgment. Limitations: no limitations Course Vital Signs 01/02/19 01/02/19 17:58 18:57 Temperature 98.4 F Pulse Rate 83 Respiratory 16 Rate Blood Pressure 139/80 O2 Sat by Pulse 97 Oximetry Medical Decision Making - Medical Decision Making Well-appearing 48 or female history of chronic migraines presenting for headache. Patient states this is very typical of his migraines. States onset was gradual. Denies associated symptoms. No focal neurological complaints or deficits on examination. Patient appears well patient requesting migraine cocktail. Patient was provided Benadryl, Zofran and an IM Toradol. Upon reevaluation patient states he has resolution of symptoms. He states he is ready for discharge. At this time given patient's resolution of symptoms. History of chronic migraines with no changes in characteristic today without focal neurological deficits the patient is stable for discharge with outpatient primary care follow-up. Patient is agreeable care plan as well as discharged today return parameters were discussed at length the patient verbalized understanding. I discussed the case with attending provider Dr. Khan. Who is agreeable care plan at discharge as well. Disposition Clinical Impression: Headache Disposition: HOME SELF-CARE Condition: Good Instructions (If sedation given, give patient instructions): Acute Headache (ED) Additional Instructions: Please use medication as discussed. Please follow-up with family doctor in the next 2 days.. Please return to emergency room if the symptoms increase or worsen or for any other concerns. Is patient prescribed a controlled substance at d/c from ED?: No Referrals: Bessie Salgado MD [Primary Care Provider] - 1-2 days Time of Disposition: 19:52
== END 2019-01-02 19:56 | disposition home or self-care (01) ==
LOC: EC 17:40
DX: R51 Headache (principal); J45.909 Unspecified asthma, uncomplicated; K21.9 Gastro-esophageal reflux disease without esophagitis; I10 Essential (primary) hypertension; G47.30 Sleep apnea, unspecified; F41.9 Anxiety disorder, unspecified; F17.200 Nicotine dependence, unspecified, uncomplicated; Z79.51 Long term (current) use of inhaled steroids; Z79.899 Other long term (current) drug therapy; Z86.69 Personal history of other diseases of the nervous system and sense organs; Z99.89 Dependence on other enabling machines and devices
CPT/HCPCS: 99283; 96372; J1885

== ENCOUNTER 2019-03-11 19:50 | Observation (INO) | payer MEDICARE, OTHER ==
[2019-03-11] MEDS ORDERED: SODIUM CHLORIDE 0.9% 1,000 ML IV STA (20:13)
[2019-03-11] MEDS ORDERED: ASPIRIN 81 MG PO STA (20:13)
[2019-03-11 20:32] LABS: Basophils % (A) 0 %; Eosinophils # (A) 0.2 k/uL (0-0.7); Eosinophils % (A) 2 %; HCT 42.6 % (39.0-53.0); HGB 14.3 gm/dL (13.0-17.5); Lymphocytes # (A) 2.5 k/uL (1.0-4.8); Lymphocytes % (A) 20 %; MCHC 33.6 g/dL (31.0-37.0); MCV 89.2 fL (80.0-100.0); Mean Platelet Volume 7.7; Monocytes # (A) 0.5 k/uL (0-1.0); Monocytes % (A) 4 %; Neutrophils # (A) 9.4 k/uL (1.3-7.7); Neutrophils % (A) 74 %; Platelet Count 270 k/uL (150-450); RBC 4.77 m/uL (4.30-5.90); WBC 12.7 k/uL (3.8-10.6)
[2019-03-11 20:39] LABS: ALT 17 U/L (21-72); AST 15 U/L (17-59); African American GFR (CKD) >90 (>60 ml/min/1.73 sqM); Albumin 3.8 g/dL (3.5-5.0); Alkaline Phosphatase 97 U/L (38-126); Anion Gap 9 mmol/L; Blood Urea Nitrogen 12 mg/dL (9-20); Calcium 9.4 mg/dL (8.4-10.2); Carbon Dioxide 24 mmol/L (22-30); Chloride 108 mmol/L (98-107); Glucose 148 mg/dL (74-99); Magnesium 1.8 mg/dL (1.6-2.3); Potassium 3.8 mmol/L (3.5-5.1); Sodium 141 mmol/L (137-145); Total Bilirubin 0.2 mg/dL (0.2-1.3); Total Protein 6.8 g/dL (6.3-8.2)
[2019-03-11 20:46] LABS: D-Dimer 0.2 mg/L FEU (<0.60); INR 0.9 (<1.2); Partial Thromboplastin Time 26.3 sec (22.0-30.0); Prothrombin Time 9.9 sec (9.0-12.0)
--- NOTE | 2019-03-11 20:51 | XR ---
EXAMINATION TYPE: XR chest 2V DATE OF EXAM: 03/11/2019 COMPARISON: 09/09/2018 HISTORY: Chest pain TECHNIQUE: Frontal and lateral views of the chest are obtained. FINDINGS: Heart and mediastinum are normal. Lungs are clear. Diaphragm is normal. There are chest le ads. Bony thorax is intact. There is mild pleural scarring at the lung apices. IMPRESSION: No active cardiopulmonary disease. No change.
[2019-03-11] MEDS ORDERED: NITROGLYCERIN SL TABS 0.4 MG TAB SUBLINGUAL PRN (22:07)
--- NOTE | 2019-03-11 22:10 | ED ---
General Adult HPI - General Chief complaint: Chest Pain Stated complaint: Chest Pain Time Seen by Provider: 03/11/19 20:06 Source: patient, RN notes reviewed, old records reviewed Mode of arrival: ambulatory Limitations: no limitations - History of Present Illness Initial comments: 48-year-old male patient with past medical history of hypertension, hyperli pidemia, current smoker presents to ED with left parasternal chest pain. Patient reports that he has experienced waxing and waning left parasternal chest pain which she describes as sharp in nature. Patient states that this started approximately 6 hours prior to presentation. Patient reports that this pain is not pleuritic, denies any shortness of breath. Patient denies any associated symptoms, nausea vomiting or diarrhea, diaphoresis. Patient denies abdominal pain. Patient denies a personal history of cardiac disease. Patient states that pain would last approximately 5 minutes, however has resolved. Denies any current pain. Denies any other complaints at this time. Systemic: Pt denies fatigue, fever/chills, rash. Pt denies weakness, night sweats, weight loss. Neuro: Pt denies headache, visual disturbances, syncope or pre-syncope. HEENT: Pt denies ocular discharge or irritation, otalgia, rhinorrhea, pharyngitis or notable lymphadenopathy. Cardiopulmonary: Pt denies SOB, heart palpitations, dyspnea on exertion. Abdominal/GI: Pt denies abdominal pain, n/v/d. : Pt denies dysuria, burning w/ urination, frequency/urgency. Denies new onset urinary or bowel incontinence. MSK: Pt denies myalgia, loss of strength or function in extremities. Neuro: Pt denies new onset weakness, paresthesias. - Related Data Home Medications Medication Instructions Recorded Confirmed FLUoxetine HCL [PROzac] 20 mg PO DAILY 07/05/17 11/20/18 Hydrochlorothiazide 25 mg PO DAILY 07/05/17 11/20/18 Montelukast [Singulair] 10 mg PO DAILY 07/05/17 11/20/18 Esomeprazole Magnesium [NexIUM] 40 mg PO AC-BRKFST 06/26/18 11/20/18 Fluticasone Propionate [Flovent 2 puff INHALATION RT-BID 06/26/18 11/20/18 Hfa 220 mcg] Albuterol Inhaler [Ventolin Hfa 2 puff INHALATION RT-Q6H PRN 07/27/18 11/20/18 Inhaler] Artificial Tears-Hypromellose 1 drop BOTH EYES QID 07/27/18 11/20/18 [Artificial Tear Drops] Multivitamins, Thera [Multivitamin 1 tab PO DAILY 07/27/18 11/20/18 (formulary)] Previous Rx's Medication Instructions Recorded Naproxen [Naprosyn] 500 mg PO Q12HR PRN #30 tab 08/01/18 hydrOXYzine HCL [Atarax] 25 mg PO TID PRN #30 tab 08/01/18 Allergies Allergy/AdvReac Type Severity Reaction Status Date / Time No Known Allergies Allergy Verified 01/02/19 18:00 Review of Systems ROS Statement: Those systems with pertinent positive or pertinent negative responses have been documented in the HPI. ROS Other: All systems not noted in ROS Statement are negative. Past Medical History Past Medical History: Asthma, GERD/Reflux, Hyperlipidemia, Hypertension, Osteoarthritis (OA), Sleep Apnea/CPAP/BIPAP Additional Past Medical History / Comment(s): migraines, vertigo History of Any Multi-Drug Resistant Organisms: None Reported Past Surgical History: Orthopedic Surgery Additional Past Surgical History / Comment(s): JORDAN KNEE ARTHROSCOPY, TESTICLE SX CHILD, nose surgery Past Anesthesia/Blood Transfusion Reactions: No Reported Reaction Past Psychological History: Anxiety Smoking Status: Current every day smoker Past Alcohol Use History: None Reported Past Drug Use History: None Reported - Past Family History Mother Family Medical History: No Reported History General Exam - General Exam Comments Initial Comments: Constitutional: NAD, AOX3, Pt has pleasant affect. HEENT: NC/AT, trachea midline, neck supple, no lymphadenopathy. Posterior pharynx non erythematous, without exudates. External ears appear normal, without discharge. Mucous membranes moist. Eyes PERRLA, EOM intact. There is no scleral icterus. No pallor noted. Cardiopulmonary: RRR, no murmurs, rubs or gallops, no JVD noted. Lungs CTAB in anterior and posterior hester. No peripheral edema. Chest pain reproducible upon palpation left paraspinal region. Abdominal exam: Abdomen soft and non-distended. Abdomen non-tender to palpation in all 4 quadrants. Bowel sounds active in LLQ. No hepatosplenomegaly. No ecchymosis Neuro: CN II-XII grossly intact. No nuchal rigidity. No raccon eyes, no gerardo sign, no hemotympanum. No cervical spinal tenderness. MSK: No posterior calf tenderness bilaterally, homans sign negative bilaterally. Posterior tibialis and radial pulse +2 bilaterally. Sensation intact in upper and lower extremities. Full active ROM in upper and lower extremities, 5/5 stregnth. Limitations: no limitations Course Vital Signs 03/11/19 03/11/19 03/11/19 19:59 20:20 21:30 Temperature 98.3 F Pulse Rate 95 89 86 Respiratory 16 18 17 Rate Blood Pressure 134/81 121/76 112/64 O2 Sat by Pulse 97 95 96 Oximetry Medical Decision Making - Medical Decision Making 48-year-old male patient presents to ED with a waxing and waning left personal chest pain. This pain started today. Patient denies any current pain this time, is asymptomatic. Physical exam displayed heart rate regular rate and rhythm, pain is reproducible upon palpation left personal region. Laboratory investigations revealed mild cytosis of 12.7. Coagulation studies within normal limits, d-dimer negative. CMP revealed mild hyperglycemia 148. Troponin negative, BNP with acceptable limits. Chest x-ray negative, EKG displayed normal sinus rhythm, possible left atrial enlargement, right bundle branch block. Patient heart score is 4, patient will be admitted for cardiac consultation and troponin trended. Case discussed with Dr. Hopkins. - Lab Data Result diagrams: 03/11/19 20:19 03/11/19 20:19 Lab Results 03/11/19 03/11/19 03/11/19 Range/Units 20:19 20:19 20:19 WBC 12.7 H (3.8-10.6) k/uL RBC 4.77 (4.30-5.90) m/uL Hgb 14.3 (13.0-17.5) gm/dL Hct 42.6 (39.0-53.0) % MCV 89.2 (80.0-100.0) fL MCH 30.0 (25.0-35.0) pg MCHC 33.6 (31.0-37.0) g/dL RDW 13.0 (11.5-15.5) % Plt Count 270 (150-450) k/uL Neutrophils % 74 % Lymphocytes % 20 % Monocytes % 4 % Eosinophils % 2 % Basophils % 0 % Neutrophils # 9.4 H (1.3-7.7) k/uL Lymphocytes # 2.5 (1.0-4.8) k/uL Monocytes # 0.5 (0-1.0) k/uL Eosinophils # 0.2 (0-0.7) k/uL Basophils # 0.0 (0-0.2) k/uL PT 9.9 (9.0-12.0) sec INR 0.9 (<1.2) APTT 26.3 (22.0-30.0) sec D-Dimer 0.20 (<0.60) mg/L FEU Sodium 141 (137-145) mmol/L Potassium 3.8 (3.5-5.1) mmol/L Chloride 108 H (98-107) mmol/L Carbon Dioxide 24 (22-30) mmol/L Anion Gap 9 mmol/L BUN 12 (9-20) mg/dL Creatinine 0.89 (0.66-1.25) mg/dL Est GFR (CKD-EPI)AfAm >90 (>60 ml/min/1.73 sqM) Est GFR (CKD-EPI)NonAf >90 (>60 ml/min/1.73 sqM) Glucose 148 H (74-99) mg/dL Calcium 9.4 (8.4-10.2) mg/dL Magnesium 1.8 (1.6-2.3) mg/dL Total Bilirubin 0.2 (0.2-1.3) mg/dL AST 15 L (17-59) U/L ALT 17 L (21-72) U/L Alkaline Phosphatase 97 (38-126) U/L Troponin I (0.000-0.034) ng/mL NT-Pro-B Natriuret Pep pg/mL Total Protein 6.8 (6.3-8.2) g/dL Albumin 3.8 (3.5-5.0) g/dL 03/11/19 03/11/19 Range/Units 20:19 20:19 WBC (3.8-10.6) k/uL RBC (4.30-5.90) m/uL Hgb (13.0-17.5) gm/dL Hct (39.0-53.0) % MCV (80.0-100.0) fL MCH (25.0-35.0) pg MCHC (31.0-37.0) g/dL RDW (11.5-15.5) % Plt Count (150-450) k/uL Neutrophils % % Lymphocytes % % Monocytes % % Eosinophils % % Basophils % % Neutrophils # (1.3-7.7) k/uL Lymphocytes # (1.0-4.8) k/uL Monocytes # (0-1.0) k/uL Eosinophils # (0-0.7) k/uL Basophils # (0-0.2) k/uL PT (9.0-12.0) sec INR (<1.2) APTT (22.0-30.0) sec D-Dimer (<0.60) mg/L FEU Sodium (137-145) mmol/L Potassium (3.5-5.1) mmol/L Chloride (98-107) mmol/L Carbon Dioxide (22-30) mmol/L Anion Gap mmol/L BUN (9-20) mg/dL Creatinine (0.66-1.25) mg/dL Est GFR (CKD-EPI)AfAm (>60 ml/min/1.73 sqM) Est GFR (CKD-EPI)NonAf (>60 ml/min/1.73 sqM) Glucose (74-99) mg/dL Calcium (8.4-10.2) mg/dL Magnesium (1.6-2.3) mg/dL Total Bilirubin (0.2-1.3) mg/dL AST (17-59) U/L ALT (21-72) U/L Alkaline Phosphatase (38-126) U/L Troponin I <0.012 (0.000-0.034) ng/mL NT-Pro-B Natriuret Pep 57 pg/mL Total Protein (6.3-8.2) g/dL Albumin (3.5-5.0) g/dL Disposition Clinical Impression: Chest pain Disposition: ADMITTED IP TO THIS HOSP Condition: Serious Is patient prescribed a controlled substance at d/c from ED?: No Referrals: Bessie Salgado MD [Primary Care Provider] - 1-2 days
--- NOTE | 2019-03-11 22:11 | ED ---
Medical Decision Making - Lab Data Result diagrams: 03/11/19 20:19 03/11/19 20:19 Lab Results 03/11/19 03/11/19 03/11/19 Range/Units 20:19 20: 20:19 WBC 12.7 H (3.8-10.6) k/uL RBC 4.77 (4.30-5.90) m/uL Hgb 14.3 (13.0-17.5) gm/dL Hct 42.6 (39.0-53.0) % MCV 89.2 (80.0-100.0) fL MCH 30.0 (25.0-35.0) pg MCHC 33.6 (31.0-37.0) g/dL RDW 13.0 (11.5-15.5) % Plt Count 270 (150-450) k/uL Neutrophils % 74 % Lymphocytes % 20 % Monocytes % 4 % Eosinophils % 2 % Basophils % 0 % Neutrophils # 9.4 H (1.3-7.7) k/uL Lymphocytes # 2.5 (1.0-4.8) k/uL Monocytes # 0.5 (0-1.0) k/uL Eosinophils # 0.2 (0-0.7) k/uL Basophils # 0.0 (0-0.2) k/uL PT 9.9 (9.0-12.0) sec INR 0.9 (<1.2) APTT 26.3 (22.0-30.0) sec D-Dimer 0.20 (<0.60) mg/L FEU Sodium 141 (137-145) mmol/L Potassium 3.8 (3.5-5.1) mmol/L Chloride 108 H (98-107) mmol/L Carbon Dioxide 24 (22-30) mmol/L Anion Gap 9 mmol/L BUN 12 (9-20) mg/dL Creatinine 0.89 (0.66-1.25) mg/dL Est GFR (CKD-EPI)AfAm >90 (>60 ml/min/1.73 sqM) Est GFR (CKD-EPI)NonAf >90 (>60 ml/min/1.73 sqM) Glucose 148 H (74-99) mg/dL Calcium 9.4 (8.4-10.2) mg/dL Magnesium 1.8 (1.6-2.3) mg/dL Total Bilirubin 0.2 (0.2-1.3) mg/dL AST 15 L (17-59) U/L ALT 17 L (21-72) U/L Alkaline Phosphatase 97 (38-126) U/L Troponin I (0.000-0.034) ng/mL NT-Pro-B Natriuret Pep pg/mL Total Protein 6.8 (6.3-8.2) g/dL Albumin 3.8 (3.5-5.0) g/dL 03/11/19 03/11/19 Range/Units 20:19 20:19 WBC (3.8-10.6) k/uL RBC (4.30-5.90) m/uL Hgb (13.0-17.5) gm/dL Hct (39.0-53.0) % MCV (80.0-100.0) fL MCH (25.0-35.0) pg MCHC (31.0-37.0) g/dL RDW (11.5-15.5) % Plt Count (150-450) k/uL Neutrophils % % Lymphocytes % % Monocytes % % Eosinophils % % Basophils % % Neutrophils # (1.3-7.7) k/uL Lymphocytes # (1.0-4.8) k/uL Monocytes # (0-1.0) k/uL Eosinophils # (0-0.7) k/uL Basophils # (0-0.2) k/uL PT (9.0-12.0) sec INR (<1.2) APTT (22.0-30.0) sec D-Dimer (<0.60) mg/L FEU Sodium (137-145) mmol/L Potassium (3.5-5.1) mmol/L Chloride (98-107) mmol/L Carbon Dioxide (22-30) mmol/L Anion Gap mmol/L BUN (9-20) mg/dL Creatinine (0.66-1.25) mg/dL Est GFR (CKD-EPI)AfAm (>60 ml/min/1.73 sqM) Est GFR (CKD-EPI)NonAf (>60 ml/min/1.73 sqM) Glucose (74-99) mg/dL Calcium (8.4-10.2) mg/dL Magnesium (1.6-2.3) mg/dL Total Bilirubin (0.2-1.3) mg/dL AST (17-59) U/L ALT (21-72) U/L Alkaline Phosphatase (38-126) U/L Troponin I <0.012 (0.000-0.034) ng/mL NT-Pro-B Natriuret Pep 57 pg/mL Total Protein (6.3-8.2) g/dL Albumin (3.5-5.0) g/dL - EKG Data -: EKG Interpreted by Me EKG Comments: Ventricular rate 85, PFO 142, QRS 128, QT/QTC 380/452. No central rhythm, possible left atrial enlargement, right bundle branch block, abnormal EKG, no concern for acute ischemia at this time. Disposition Clinical Impression: Chest pain Disposition: ADMITTED IP TO THIS HOSP Condition: Serious Is patient prescribed a controlled substance at d/c from ED?: No Referrals: Bessie Salgado MD [Primary Care Provider] - 1-2 days
[2019-03-12 01:02] LABS: Cholesterol 138 mg/dL (<200); HDL Cholesterol 26 mg/dL (40-60); LDL Cholesterol,Calculated 73 mg/dL (0-99); Triglycerides 193 mg/dL (<150)
[2019-03-12 06:59] VITALS: BP 132/85; PULSE 73; RESP 18; TEMP 97.4
[2019-03-12] MEDS ORDERED: ASPIRIN 325 MG TAB PO SCH (09:00)
--- NOTE | 2019-03-12 10:12 | P.CRDCN ---
History of Present Illness History of present illness: This is a pleasant 48 showed male past medical history significant for hypertension, dyslipidemia, gastroesophageal reflux disease, obstructive sleep apnea, COPD and chronic nicotine dependence. He denies history of coronary artery disease and has never had a heart catheterization in the past. He follows in the office with Dr. Anderson. We have been asked to see him in consultation secondary to chest discomfort. He states he woke up yesterday with a sharp pain in the left precordial region he states it was constant and ongoing for most of the day. He did take a breathing treatment at some point and this did relieve his discomfort however it did come back later in the afternoon. This was associated with mild shortness of breath. There is no radiation to the arm, back, neck or jaw. He denies associated dizziness, palpitations, nausea, vomiting or diaphoresis. He is seen and examined resting comfortably in bed with his mother at the bedside. He denies active chest discomfort at this time. EKG reveals right bundle branch block pattern with no acute ST or T wave abnormalities noted. Chest x-ray is negative for an acute cardiopulmonary process. Laboratory data reviewed, WBC 12.7, hemoglobin 14.3, platelets 270, d-dimer 0.2, sodium 141, potassium 3.8, creatinine 0.89, magnesium 1.8, cardiac enzymes negative 3, LDL 73, proBNP 57. Current cardiac medications include lisinopril 10 mg daily, pravastatin 40 mg daily and hydrochlorothiazide 25 mg daily. Most recent stress test performed in the office was a dobutamine stress echocardiogram in 2016 was negative for stress-induced ischemia. At the time of my exam: CONSTITUTIONAL: Denies fever. Denies chills. EYES: Denies blurred vision. Denies vision changes. Denies eye pain. EARS, NOSE, MOUTH & THROAT: Denies headache. Denies sore throat. Denies ear pain. CARDIOVASCULAR: Denies chest pain. Denies shortness of breath. Denies orthopnea. Denies PND. Denies palpitations. RESPIRATORY: Denies cough. GASTROINTESTINAL: Denies abdominal pain. Denies diarrhea. Denies constipation. Denies nausea. Denies vomiting. MUSCULOSKELETAL: Denies myalgias. INTEGUMENTARY: Denies pruitis. Denies rash. NEUROLOGIC: Denies numbness. Denies tingling. Denies weakness. PSYCHIATRIC: Denies anxiety. Denies depression. ENDOCRINE: Denies fatigue. Denies weight change. Denies polydipsia. Denies polyurina. GENITOURINARY: Denies burning, hematuria or urgency with micturation. HEMATOLOGIC: Denies history of anemia. Denies bleeding. Blood pressure 132/85 heart rate 73 afebrile maintaining oxygen saturation on room air GENERAL: This is a 48-year-old male in no apparent distress at the time of my examination. HEENT: Head is atraumatic, normocephalic. Pupils are equal, round. Sclerae anicteric. Conjunctivae are clear. Mucous membranes of the mouth are moist. Neck is supple. There is no jugular venous distention. No carotid bruit is heard. LUNGS: Few scattered faint rhonchi noted, no wheezes or rales. No chest wall tenderness is noted on palpation or with deep breathing. HEART: Regular rate and rhythm without murmurs, rubs or gallops. S1 and S2 heard. ABDOMEN: Soft, nontender. Bowel sounds are heard. No organomegaly noted. EXTREMITIES: Bilateral lower extremity trace edema, no calf tenderness noted. VASCULAR: Radial and dorsalis pedis pulses palpated, no evidence of clubbing. NEUROLOGIC: Patient is awake, alert and oriented x3. ASSESSMENT Chest pain, atypical for angina. An acute coronary event has been ruled out. Hypertension Dyslipidemia Obstructive sleep apnea Chronic nicotine dependence Obesity, BMI 36 PLAN An acute coronary event has been ruled out with no EKG evidence of ischemia and negative cardiac enzymes. Symptoms possibly related to underlying COPD. Obtain 2-D echocardiogram and Doppler study to assess cardiac structure and function. Recommend patient undergo stress testing to assess for stress-induced ischemia, patient is very adamant he would like to go home and have this done in the office. This is a reasonable request. We will schedule him for a dobutamine stress echocardiogram in the office. Thank you kindly for this consultation. Nurse Practitioner note has been reviewed, I agree with a documented findings and plan of care. Patient was seen and examined. Past Medical History Past Medical History: Asthma, GERD/Reflux, Hyperlipidemia, Hypertension, Osteoarthritis (OA), Sleep Apnea/CPAP/BIPAP Additional Past Medical History / Comment(s): migraines, vertigo History of Any Multi-Drug Resistant Organisms: None Reported Past Surgical History: Orthopedic Surgery Additional Past Surgical History / Comment(s): JORDAN KNEE ARTHROSCOPY, TESTICLE SX CHILD, nose surgery Past Anesthesia/Blood Transfusion Reactions: No Reported Reaction Past Psychological History: Anxiety Additional Psychological History / Comment(s): STATES TAKES PROZAC FOR ANGER ISSUES Smoking Status: Current every day smoker Past Alcohol Use History: None Reported Past Drug Use History: None Reported - Past Family History Mother Family Medical History: No Reported History Medications and Allergies Home Medications Medication Instructions Recorded Confirmed Type Hydrochlorothiazide 25 mg PO DAILY 07/05/17 03/12/19 History Montelukast [Singulair] 10 mg PO DAILY 07/05/17 03/12/19 History Fluticasone Propionate [Flovent 2 puff INHALATION RT-BID 06/26/18 03/12/19 History Hfa 220 mcg] Divalproex [Depakote] 250 mg PO DAILY 03/12/19 03/12/19 History Ergocalciferol (Vitamin D2) 50,000 unit PO Q7D 03/12/19 03/12/19 History [Drisdol] Ipratropium-Albuterol Nebulize 3 ml INHALATION RT-BID 03/12/19 03/12/19 History [Duoneb 0.5 mg-3 mg/3 ml Soln] Lisinopril [Zestril] 10 mg PO DAILY 03/12/19 03/12/19 History Pravastatin Sodium [Pravachol] 40 mg PO HS 03/12/19 03/12/19 History Topiramate [Topamax] 25 mg PO HS 03/12/19 03/12/19 History Allergies Allergy/AdvReac Type Severity Reaction Status Date / Time No Known Allergies Allergy Verified 03/12/19 09:36 Physical Exam Vitals: Vital Signs Temp Pulse Pulse Resp BP BP BP 03/12/19 06:58 97.4 F L 73 18 132/85 03/12/19 04:00 98.2 F 66 16 146/78 03/11/19 23:12 98.0 F 80 15 150/71 03/11/19 22:44 98.7 F 90 19 123/58 03/11/19 21:30 86 17 112/64 03/11/19 20:20 89 18 121/76 03/11/19 19:59 98.3 F 95 16 134/81 Pulse Ox 03/12/19 06:58 99 03/12/19 04:00 97 03/11/19 23:12 96 03/11/19 22:44 97 03/11/19 21:30 96 03/11/19 20:20 95 03/11/19 19:59 97 Intake and Output 03/11/19 03/12/19 03/12/19 22:59 06:59 14:59 Other: # Voids 1 Weight 122.47 kg Results 03/11/19 20:19 03/11/19 20:19 Cardiac Enzymes 03/11/19 03/11/19 03/12/19 Range/Units 20:19 20:19 02:04 AST 15 L (17-59) U/L Troponin I <0.012 <0.012 (0.000-0.034) ng/mL Coagulation 03/11/19 Range/Units 20:19 PT 9.9 (9.0-12.0) sec APTT 26.3 (22.0-30.0) sec Lipids 03/11/19 Range/Units 20:19 Triglycerides 193 H (<150) mg/dL Cholesterol 138 (<200) mg/dL HDL Cholesterol 26 L (40-60) mg/dL CBC 03/11/19 Range/Units 20:19 WBC 12.7 H (3.8-10.6) k/uL RBC 4.77 (4.30-5.90) m/uL Hgb 14.3 (13.0-17.5) gm/dL Hct 42.6 (39.0-53.0) % Plt Count 270 (150-450) k/uL Comprehensive Metabolic Panel 03/11/19 Range/Units 20:19 Sodium 141 (137-145) mmol/L Potassium 3.8 (3.5-5.1) mmol/L Chloride 108 H (98-107) mmol/L Carbon Dioxide 24 (22-30) mmol/L BUN 12 (9-20) mg/dL Creatinine 0.89 (0.66-1.25) mg/dL Glucose 148 H (74-99) mg/dL Calcium 9.4 (8.4-10.2) mg/dL AST 15 L (17-59) U/L ALT 17 L (21-72) U/L Alkaline Phosphatase 97 (38-126) U/L Total Protein 6.8 (6.3-8.2) g/dL Albumin 3.8 (3.5-5.0) g/dL Current Medications Generic Name Dose Route Start Last Admin Trade Name Freq PRN Reason Stop Dose Admin Aspirin 325 mg 03/12/19 09:00 Aspirin PO DAILY BALDO Nitroglycerin 0.4 mg 03/11/19 22:07 Nitrostat SUBLINGUAL Q5M PRN Chest Pain Intake and Output 03/11/19 03/12/19 03/12/19 22:59 06:59 14:59 Other: # Voids 1 Weight 122.47 kg 03/11/19 20:19 03/11/19 20:19
--- NOTE | 2019-03-12 10:27 | P.HPIM ---
History of Present Illness Chief Complaint: Chest pain This is my history and physical and discharge summary for this patient Visit very pleasant 48-year-old gentleman past medical history significant for hypertension, hyperlipidemia, ROSA, COPD, GERD comes in with complaints of chest pain. He said that he woke up yesterday in the morning with sharp pain in the chest which was ongoing for most of the day. He said that he try to do a breathing treatment helped a little but the pain came back later again. He does came into the ER for further evaluation and management. The patient did not complain of any radiation of the pain, he did not have any associated dizziness or palpitation, he did not complain of any nausea vomiting or any diaphoresis, he does not complain of any abdominal pain, no tingling numbness of his extremities, and no itch no rash. He says that he follows up with Dr. Anderson in the office. ER course-patient had EKG done which showed right bundle branch block with no ST-T wave changes. Labwork was done which showed WBC 12.7 hemoglobin 14.3 platelets 270 d-dimer 0.2 sodium 141 potassium 3.8 creatinine 0.89 magnesium 1.8 troponins were negative proBNP was 57. Chest x-ray did not show any acute abnormalities. Patient was admitted to the hospitalist service a further urology management and cardiology consult Review of Systems All systems: negative Past Medical History Past Medical History: Asthma, GERD/Reflux, Hyperlipidemia, Hypertension, Osteoarthritis (OA), Sleep Apnea/CPAP/BIPAP Additional Past Medical History / Comment(s): migraines, vertigo History of Any Multi-Drug Resistant Organisms: None Reported Past Surgical History: Orthopedic Surgery Additional Past Surgical History / Comment(s): JORDAN KNEE ARTHROSCOPY, TESTICLE SX CHILD, nose surgery Past Anesthesia/Blood Transfusion Reactions: No Reported Reaction Past Psychological History: Anxiety Additional Psychological History / Comment(s): STATES TAKES PROZAC FOR ANGER ISSUES Smoking Status: Current every day smoker Past Alcohol Use History: None Reported Past Drug Use History: None Reported - Past Family History Mother Family Medical History: No Reported History Medications and Allergies Home Medications Medication Instructions Recorded Confirmed Type Hydrochlorothiazide 25 mg PO DAILY 07/05/17 03/12/19 History Montelukast [Singulair] 10 mg PO DAILY 07/05/17 03/12/19 History Fluticasone Propionate [Flovent 2 puff INHALATION RT-BID 06/26/18 03/12/19 History Hfa 220 mcg] Aspirin 81 mg PO DAILY #30 chewable 03/12/19 Rx Divalproex [Depakote] 250 mg PO DAILY 03/12/19 03/12/19 History Ergocalciferol (Vitamin D2) 50,000 unit PO Q7D 03/12/19 03/12/19 History [Drisdol] Ipratropium-Albuterol Nebulize 3 ml INHALATION RT-BID 03/12/19 03/12/19 History [Duoneb 0.5 mg-3 mg/3 ml Soln] Lisinopril [Zestril] 10 mg PO DAILY 03/12/19 03/12/19 History Pravastatin Sodium [Pravachol] 40 mg PO HS 03/12/19 03/12/19 History Topiramate [Topamax] 25 mg PO HS 03/12/19 03/12/19 History Allergies Allergy/AdvReac Type Severity Reaction Status Date / Time No Known Allergies Allergy Verified 03/12/19 09:36 Physical Exam Vitals: Vital Signs Temp Pulse Pulse Resp BP BP BP 03/12/19 08:00 18 03/12/19 06:58 97.4 F L 73 18 132/85 03/12/19 04:00 98.2 F 66 16 146/78 03/11/19 23:12 98.0 F 80 15 150/71 03/11/19 22:44 98.7 F 90 19 123/58 03/11/19 21:30 86 17 112/64 03/11/19 20:20 89 18 121/76 03/11/19 19:59 98.3 F 95 16 134/81 Pulse Ox 03/12/19 08:00 03/12/19 06:58 99 03/12/19 04:00 97 03/11/19 23:12 96 03/11/19 22:44 97 03/11/19 21:30 96 03/11/19 20:20 95 03/11/19 19:59 97 Intake and Output 03/11/19 03/12/19 03/12/19 22:59 06:59 14:59 Other: # Voids 1 Weight 122.47 kg On exam, alert and oriented x3. HEENT: Conjunctivae normal. eyes normal. NECK: No JVD. No thyroid enlargement. No LNs CARDIOVASCULAR: S1, S2 heard RESPIRATION: Breath sounds are equally both sides, no rhonchi or rales no wheezing ABDOMEN: Soft, nontender . No guarding. no masses palpable. No ascites, No hepatosplenomegaly.Bowel sounds heard. LEGS: No edema. no swelling NERVOUS SYSTEM: Cranial N 2-12 grossly normal. Moves all 4 limbs. No focal deficits. No sensory deficit. No signs of cerebellar dysfucntion. Skin: no ulcer no rash Results CBC & Chem 7: 03/11/19 20:19 03/11/19 20:19 Labs: Abnormal Lab Results - Last 24 Hours (Table) 03/11/19 03/11/19 03/11/19 Range/Units 20: 20: 20: WBC 12.7 H (3.8-10.6) k/uL Neutrophils # 9.4 H (1.3-7.7) k/uL Chloride 108 H (98-107) mmol/L Glucose 148 H (74-99) mg/dL AST 15 L (17-59) U/L ALT 17 L (21-72) U/L Triglycerides 193 H (<150) mg/dL HDL Cholesterol 26 L (40-60) mg/dL Thrombosis Risk Factor Assmnt - Choose All That Apply Any of the Below Risk Factors Present?: Yes Each Factor Represents 1 point: Abnormal pulmonary function (COPD), Age 41-60 years, Obesity (BMI >25), Swollen legs (current) Thrombosis Risk Factor Assessment Total Risk Factor Score: 4 Thrombosis Risk Factor Assessment Level: Moderate Risk Assessment and Plan Assessment: - Chest pain acute coronary event has been ruled out - Hypertension - Hyperlipidemia - ROSA - Tobacco dependence - Obesity Plan - The patient be continued on the home medications - He will later be discharged once cleared by cardiology pending echo reading - Patient does not want a stress test over here and would rather have the stress test done as an outpatient. Cardiology making arrangements to have the stress test done as an outpatient - Patient will be discharged on home medications and will add aspirin 81 mg to his home medications - Patient to follow with cardiology - Patient will also follow-up with primary care doctor Time with Patient: Greater than 30
--- NOTE | 2019-03-12 11:16 | ECHOF ---
Referral Reason:chest pain MEASUREMENTS -------- HEIGHT: 182.9 cm WEIGHT: 122.5 kg BP: 132/85 RVIDd: 3.0 cm (< 3.3) IVSd: 1.3 cm (0.6 - 1.1) LVIDd: 4.3 cm (3.9 - 5.3) LVPWd: 1.3 cm (0.6 - 1.1) IVSs: 1.6 cm LVIDs: 2.7 cm LVPWs: 1.9 cm LA Diam: 3.6 cm (2.7 - 3.8) LAESV Index (A-L): 16.83 ml/m Ao Diam: 3.3 cm (2.0 - 3.7) AV Cusp: 2.3 cm (1.5 - 2.6) MV EXCURSION: 14.924 mm (> 18.000) MV EF SLOPE: 61 mm/s (70 - 150) EPSS: 0.5 cm MV E Hossein: 1.00 m/s MV DecT: 240 ms MV A Hossein: 0.81 m/s MV E/A Ratio: 1.23 FINDINGS -------- Sinus rhythm. This was a technically adequate study. The left ventricular size is normal. There is mild concentric left ventricular hypertrophy. Overa ll left ventricular systolic function is normal with, an EF between 60 - 65 %. The right ventricle is normal in size. Normal LA size by volume 22+/-6 ml/m2. The right atrium is normal in size. The aortic valve is trileaflet and appears structurally normal. Mild mitral annular calcification present. There is trace mitral regurgitation. The tricuspid valve appears structurally normal. The pulmonic valve was not well visualized. The aortic root size is normal. There is no pericardial effusion. CONCLUSIONS -------- 1. Sinus rhythm. 2. This was a technically adequate study. 3. The left ventricular size is normal. 4. There is mild concentric left ventricular hypertrophy. 5. Overall left ventricular systolic function is normal with, an EF between 60 - 65 %. 6. The right ventricle is normal in size. 7. Normal LA size by volume 22+/-6 ml/m2. 8. The right atrium is normal in size. 9. The aortic valve is trileaflet and appears structurally normal. 10. Mild mitral annular calcification present. 11. There is trace mitral regurgitation. 12. The tricuspid valve appears structurally normal. 13. The pulmonic valve was not well visualized. 14. The aortic root size is normal. 15. There is no pericardial effusion. PROCESS PUMPER: Tammi Rojas RDCS
== END 2019-03-12 10:52 | disposition home or self-care (01) ==
LOC: EC 19:50 → 1SOBS 22:42
PROVIDERS: ADMIT Internal Medicine; ATTEND Internal Medicine
DX: R07.89 Other chest pain (principal); I10 Essential (primary) hypertension; E78.5 Hyperlipidemia, unspecified; R73.9 Hyperglycemia, unspecified; I45.10 Unspecified right bundle-branch block; J44.9 Chronic obstructive pulmonary disease, unspecified; G47.33 Obstructive sleep apnea (adult) (pediatric); G43.909 Migraine, unspecified, not intractable, without status migrainosus; R22.43 Localized swelling, mass and lump, lower limb, bilateral; K21.9 Gastro-esophageal reflux disease without esophagitis; M19.90 Unspecified osteoarthritis, unspecified site; F41.9 Anxiety disorder, unspecified; E66.9 Obesity, unspecified; R45.4 Irritability and anger; Z68.36 Body mass index [BMI] 36.0-36.9, adult; F17.200 Nicotine dependence, unspecified, uncomplicated; Z99.89 Dependence on other enabling machines and devices; Z79.899 Other long term (current) drug therapy; Z79.51 Long term (current) use of inhaled steroids
CPT/HCPCS: 96360; 99285; 36415; 93005; 93306; 85379; 83880; 80061; 80053; 83735; 84484 ×2; 85025; 85610; 85730; 71046; G0378 ×2

== ENCOUNTER → 2019-10-10 | Outpatient (CLI) | payer MEDICARE, OTHER ==
--- NOTE | 2019-10-10 08:48 | US ---
EXAMINATION TYPE: US abdomen complete DATE OF EXAM: 10/10/2019 COMPARISON: NONE CLINICAL HISTORY: R19.7 Diarrhea, unspecified, R10.9 Unspecified abd. NPO EXAM MEASUREMENTS: Liver Length: 21.2 cm Gallbladder Wall: 0.2 cm CBD: 0.4 cm Spleen: 13.3 cm Right Kidney: 12.7 x 4.7 x 5.4 cm Left Kidney: 12.6 x 4.7 x 6.1 cm Limited exam due to patient body habitus and overlying bowel Pancreas: Tail obscured by overlying bowel gas Liver: Enlarged. There is increased echogenicity of the hepatic parenchyma with diminished visualiza tion of the portal triads most commonly relating to hepatic steatosis and limiting evaluation for und erlying hepatic masses. Gallbladder: wnl Evidence for sonographic Flood's sign: neg CBD: wnl Spleen: upper limits of normal in size Right Kidney: lateral lower pole cystic appearing lesion in cortex= 1.0 x 1.0 x 0.7 cm Left Kidney: No hydronephrosis or masses seen Upper IVC: Obscured by overlying bowel gas Abd Aorta: Mid and distal obscured by overlying bowel gas The proximal abdominal aorta is within normal limits. There is no evidence of cholelithiasis. Commo n bile duct is unremarkable. The visualized portions of the pancreas are homogenous. The spleen is upper limits of normal size. Kidneys are symmetric and free of hydronephrosis. IMPRESSION: 1. Sonographic findings most commonly related to hepatic steatosis. Correlate with liver function truman ts. 2. Right renal cyst measuring 1.0 cm. 3. Splenic size approaches criteria for splenomegaly. 4. Partial obscuration of the pancreas, IVC, and aorta by overlying bowel gas.
== END | disposition home or self-care (01) ==
LOC: RADUSWWP 07:13
PROVIDERS: ATTEND Family Medicine
DX: K76.0 Fatty (change of) liver, not elsewhere classified (principal); R16.2 Hepatomegaly with splenomegaly, not elsewhere classified; N28.1 Cyst of kidney, acquired; R19.7 Diarrhea, unspecified
CPT/HCPCS: 76700

== ENCOUNTER → 2020-03-25 | Outpatient (CLI) | payer MEDICARE, OTHER ==
--- NOTE | 2020-03-25 16:20 | US ---
EXAMINATION TYPE: US venous doppler duplex LE DATE OF EXAM: 03/25/2020 1:38 PM COMPARISON: NONE CLINICAL HISTORY: M79.89 Leg swelling. SIDE PERFORMED: Bilateral TECHNIQUE: The lower extremity deep venous system is examined utilizing real time linear array sonog hieu with graded compression, doppler sonography and color-flow sonography. VESSELS IMAGED: External Iliac Vein (EIV) Common Femoral Vein Deep Femoral Vein Greater Saphenous Vein * Femoral Vein Popliteal Vein Small Saphenous Vein * Proximal Calf Veins (* superficial vessels) Morbidly obese patient. Technically difficult study. Right Leg: Negative for DVT Left Leg: Negative for DVT IMPRESSION: 1. Bilateral lower extremity ultrasound negative for deep venous thrombosis. 2. There is limitation due to patient body habitus.
== END | disposition home or self-care (01) ==
LOC: RADUSWWP 13:35
PROVIDERS: ATTEND Family Medicine
DX: M79.89 Other specified soft tissue disorders (principal)
CPT/HCPCS: 93970

== ENCOUNTER 2020-10-14 08:48 | Day surgery (SDC) | payer MEDICARE, OTHER ==
[2020-10-13 09:26] VITALS: BMI 33.0
[~2020-10-14 08:48] MED LIST changes: -ACETAMINOPHEN TAB 500 MG TAB PO ONE; -DEXAMETHASONE SOD PHOSPHATE 10 MG/ML 1 ML VIAL IV ONE; -DEXAMETHASONE SOD PHOSPHATE 4 MG/ML 1 ML VIAL IV ONE; -FAMOTIDINE 20 MG/2 ML VIAL IV ONE; -HYDROmorphone 1 MG/ML 1 ML SYRINGE IVP PRN; +LIDOCAINE 1% (10MG/ML) FOR IV START INTRADERMA PRN; -MIDAZOLAM 2 MG/2 ML VIAL IV PRN; -ONDANSETRON 4 MG/2 ML VIAL IVP ONE; -Pre Op ABX Message 1 EACH MISC MISCELLANE ONE; -SCOPOLAMINE 1.5MG/72HR PATCH TRANSDERM ONE
[2020-10-14 09:09] VITALS: RESP 16; TEMP 97
[2020-10-14 09:29] LABS: Glucose,Whole Blood 95 mg/dL (75-99)
[2020-10-14] MEDS ORDERED: LIDOCAINE 1% INJ 10MG/ML (20 ML MDV) ONE (09:56)
[2020-10-14] MEDS ORDERED: PROPOFOL 10 MG/ML 20 ML VIAL IV ONE (09:56)
--- NOTE | 2020-10-14 10:15 | P.PCN ---
Date of Procedure: 10/14/20 Procedure(s) Performed: Brief history: Patient is a pleasant 50-year-old pleasant white male scheduled for an elective upper endoscopy as well as colonoscopy as a part of evaluation of GERD and Hemoccult-positive stool. Procedure performed: Esophagogastroduodenoscopy biopsy Colonoscopy with biopsy Preoperative diagnosis: GERD Hemoccult-positive stool Anesthesia: [facility] [place] Procedure: After informed consent was obtained from the patient was brought into the endoscopy unit and IV sedation was administered by anesthesia under continuous monitoring. Initially upper endoscopy was done. The Olympus GF 160 video endoscope was inserted inserted into the mouth and esophagus intubated without any difficulty and was gradually advanced into the stomach and duodenum and carefully examined. The bulb and second part of the duodenum appeared normal. The scope was then withdrawn into the stomach adequately insufflated with air and upon careful examination the antrum had mild gastritis and biopsies were done from this area. The body, cardia and fundus appeared normal. The scope was then withdrawn into the esophagus. The GE junction was located at 45 cm to the incisors. It apirregular and there were 2 short Segment Chamberlain's Appearing Mucosa Extending 3 Mm Proximal to the GE Junction Which Were Biopsied. Rest of the esophagus appeared normal. Patient tolerated the procedure well. At this time the patient continued to remain sedation. Initial digital rectal examination was normal. Olympus CF 160 video colonoscope was then inserted into the rectum and gradually advanced to the cecum without any difficulty. Careful examination was performed as the scope was gradually being withdrawn. The prep was excellent. The cecum, ascending colon, transverse colon appeared normal. In the descending colon there was a 3 mm polyp removed by cold biopsy. Rest of the , descending colon, sigmoid colon and rectum appeared normal. as rectum there was a 5 mm polyp that was removed by cold biopsy Retroflexion was performed in the rectum ansmall internal hemorrhoidsere noted. Patient tolerat ed the procedure well. Impression: 1. 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 Colonoscopy revealed 3 mm descending colon polyp and a 5 mm rectal polyp that was removed by cold biopsy and small internal hemorrhoids. Recommendations: Findings of this examination were discussed with the patient as well as his family. He was advised to follow with the biopsy results. He will continue with Prilosec 20 mg daily and follow antireflux measures. If the biopsy reveals Chamberlain's esophagus he can have a repeat upper endoscopy in 2 years.
[2020-10-14 10:32] VITALS: BP 131/78; PULSE 70
== END 2020-10-14 11:05 | disposition home or self-care (01) ==
LOC: ORWHC2ENDO 08:48
PROVIDERS: ATTEND Internal Medicine Gastroenterology
DX: K63.5 Polyp of colon (principal); K62.1 Rectal polyp; K64.8 Other hemorrhoids; K31.9 Disease of stomach and duodenum, unspecified; K21.01 Gastro-esophageal reflux disease with esophagitis, with bleeding; K29.70 Gastritis, unspecified, without bleeding; K22.70 Barrett's esophagus without dysplasia; K08.89 Other specified disorders of teeth and supporting structures; K08.409 Partial loss of teeth, unspecified cause, unspecified class; I10 Essential (primary) hypertension; J45.909 Unspecified asthma, uncomplicated; G47.33 Obstructive sleep apnea (adult) (pediatric); F17.210 Nicotine dependence, cigarettes, uncomplicated; E11.9 Type 2 diabetes mellitus without complications; R42 Dizziness and giddiness; Z79.899 Other long term (current) drug therapy; Z79.82 Long term (current) use of aspirin; Z79.84 Long term (current) use of oral hypoglycemic drugs; Z98.890 Other specified postprocedural states; Z91.89 Other specified personal risk factors, not elsewhere classified
CPT/HCPCS: 88305; 45380; 43239; J2001; J2704

== ENCOUNTER → 2021-03-25 | Outpatient (CLI) | payer MEDICARE, OTHER ==
[2021-03-25 11:27] LABS: African American GFR (CKD) >90 (>60 ml/min/1.73 sqM); Blood Urea Nitrogen 19 mg/dL (9-20); Non-African American GFR(CKD) 85 (>60 ml/min/1.73 sqM)
--- NOTE | 2021-03-25 13:53 | CT ---
EXAMINATION TYPE: CT ChestAbdPelvis w con DATE OF EXAM: 03/25/2021 INDICATION: Weight loss COMPARISON: None CT DLP: 1982.8 mGycm CONTRAST: Performed with Oral Contrast and with IV Contrast, patient injected with 100 mL of Isovue 300. TECHNIQUE: Axial images at 5 mm thick sections. Reconstructed images in the coronal plane. Delayed images through the kidneys. FINDINGS: CT CHEST: Portion of the thyroid visualized is normal. No suspicious lung nodules or focal infiltrates are present. No enlarged mediastinal or hilar adenopathy is evident. The ascending aorta diameter at the level of the main pulmonary artery is 3.4 cm. The main pulmonary artery diameter at the bifurcation is 2.[address] ABDOMEN: Liver: Normal Spleen: Normal Pancreas: Normal Adrenal glands: The adrenal glands are normal. Gallbladder: Normal Kidneys: No masses are evident. No hydronephrosis is present. No cysts are present. Delayed images were obtained through the kidneys, which remain unremarkable. Aorta: Vascular calcification is within the aorta. Inferior vena cava: Normal. CT PELVIS: Loops of bowel within the abdomen and pelvis are normal. There are loops of bowel which are incom pletely distended or lack oral contrast limiting their evaluation. Appendix: Normal as visualized. Urinary bladder: Normal. Genitourinary structures: Prostate is normal Osseous structures: No suspicious lytic or sclerotic lesions. IMPRESSIONS: 1. No suspicious acute changes. 2. No suspicious abnormality account for weight loss.
== END | disposition home or self-care (01) ==
LOC: RADCTMAIN 10:02
PROVIDERS: ATTEND Family Medicine
DX: R63.4 Abnormal weight loss (principal)
CPT/HCPCS: 82565; 84520; 71260; 74177; 36415; Q9967

== ENCOUNTER 2021-12-16 06:35 | Inpatient (IN) | payer MEDICARE, OTHER ==
[2021-12-16] MEDS ORDERED: AMPICILLIN-SULBACTAM 3 GM in SODIUM CHLORIDE 0.9% 100 ML IVPB STA (07:26)
--- NOTE | 2021-12-16 07:34 | ED ---
General Adult HPI - General Chief complaint: Dental/Oral Stated complaint: Dental Pain Time Seen by Provider: 12/16/21 06:56 Source: patient Mode of arrival: ambulatory - History of Present Illness Initial comments: Dictation was produced using [employer] dictation software. please excuse any grammatical, word or spelling errors. Chief Complaint: 51-year-old male presents emergency department with worsening facial swelling History of Present Illness: 51-year-old male who has past medical history of poor dentition, asthma and diabetes. Patient has been struggling with poor dentition and tooth infection for several days. He went to see his primary care doctor was placed on a course of antibiotics. He is referred to the dentist that was nearby his PCPs office. Patient reports that the Dentist is new and inexperience. The dentist evaluated patient and did not continue him on antibiotics. Instead he was referred to an oral surgeon. Patient does not have an appointment with the oral surgeon yet. Patient has a fever constitutional symptoms. He noticed over the last 24-48 hours that his tongue started to become swollen. He denies any significant submental pain. Most of his pain is to his left lateral mandible area The ROS documented in this emergency department record has been reviewed and confirmed by me. Those systems with pertinent positive or negative responses have been documented in the HPI. All other systems are other negative and/or noncontributory. PHYSICAL EXAM: General Impression: Alert and oriented x3, not in acute distress HEENT: Normocephalic atraumatic, extra-ocular movements intact, pupils equal and reactive to light bilaterally, mucous membranes moist. Dental: Poor dentition, he does have facial swelling to the left mandible, there does appear to be some sublingual swelling. No induration to the submental and submandibular space. Cardiovascular: Heart regular rate and rhythm Chest: Able to complete full sentences, no retractions, no tachypnea Abdomen: abdomen soft, non-tender, non-distended, no organomegaly Musculoskeletal: Pulses present and equal in all extremities, no peripheral edema Motor: no focal deficits noted Neurological: CN II-XII grossly intact, no focal motor or sensory deficits noted Skin: Intact with no visualized rashes Psych: Normal affect and mood ED course: 51-year-old male presents to the emergency department with worsening dental infection. He started to show some very early signs of perhaps Sachin's angina. vital signs upon arrival are within acceptable limits. Laboratory evaluation obtained. Mild leukocytosis of 15.7. Rest of CBC is unremarkable. Metabolic panel is negative. CT of the soft tissue neck with contrast shows acute inflammatory changes along the inferior aspect of the left side of the face extending to the left submandibular space representing cellulitis. Suspected early involvement of the left side of the floor of the mouth and the left sublingual space however there is a patent airway. Patient reevaluated bedside at 10:00 AM he does not show any signs of significant distress. He is not dyspneic, drooling or having trouble breathing. Clinical presentation suspicious for very early Sachin angina. Given Unasyn and Decadr on. Patient be admitted to [facility] hospitalist group with oral surgery on consult. - Related Data Home Medications Medication Instructions Recorded Confirmed Montelukast [Singulair] 10 mg PO QAM 07/05/17 10/13/20 Fluticasone Propionate [Flovent 2 puff INHALATION RT-BID 06/26/18 10/13/20 Hfa 220 mcg] Ipratropium-Albuterol Nebulize 3 ml INHALATION QID PRN 03/12/19 10/13/20 [Duoneb 0.5 mg-3 mg/3 ml Soln] Pravastatin Sodium [Pravachol] 40 mg PO HS 03/12/19 10/13/20 lisinopriL [Zestril] 10 mg PO QAM 03/12/19 10/13/20 Cetirizine HCl 10 mg PO QAM PRN 04/10/20 10/13/20 FLUoxetine HCL [PROzac] 20 mg PO QAM 04/10/20 10/13/20 Furosemide [Lasix] 20 mg PO BID 04/10/20 10/13/20 Omeprazole 20 mg PO QAM 04/10/20 10/13/20 Cholecalciferol [Vitamin D3 (25 50 mcg PO DAILY 10/13/20 10/13/20 Mcg = 1000 Iu)] Potassium Chloride [Potassium 10 meq PO DAILY 10/13/20 10/13/20 Chloride ER] metFORMIN HCL [Glucophage] 500 mg PO DAILY 10/13/20 10/13/20 Previous Rx's Medication Instructions Recorded Aspirin 81 mg PO DAILY #30 chewable 03/12/19 Allergies Allergy/AdvReac Type Severity Reaction Status Date / Time No Known Allergies Allergy Verified 12/16/21 06:46 Review of Systems ROS Statement: Those systems with pertinent positive or pertinent negative responses have been documented in the HPI. ROS Other: All systems not noted in ROS Statement are negative. Past Medical History Past Medical History: Asthma, Diabetes Mellitus, GERD/Reflux, Hyperlipidemia, Hypertension, Osteoarthritis (OA), Sleep Apnea/CPAP/BIPAP Additional Past Medical History / Comment(s): had bleeding with stools, migraines, vertigo,does not use cpap History of Any Multi-Drug Resistant Organisms: None Reported Past Surgical History: Orthopedic Surgery Additional Past Surgical History / Comment(s): JORDAN KNEE ARTHROSCOPY, TESTICLE SX CHILD, nose surgery Past Anesthesia/Blood Transfusion Reactions: No Reported Reaction Past Psychological History: Anxiety Smoking Status: Current every day smoker Past Alcohol Use History: None Reported Past Drug Use History: Marijuana - Past Family History Brother(s) Additional Family Medical History / Comment(s): with Flu Sister(s) Family Medical History: Renal Disease Additional Family Medical History / Comment(s): with kidney disease Course Vital Signs 12/16/21 12/16/21 06:43 08:38 Temperature 97.7 F Pulse Rate 75 78 Respiratory 18 20 Rate Blood Pressure 147/87 178/103 O2 Sat by Pulse 97 96 Oximetry Medical Decision Making - Lab Data Result diagrams: 12/16/21 07:47 12/16/21 07:47 Lab Results 12/16/21 12/16/21 Range/Units 07:47 07:47 WBC 15.7 H (3.8-10.6) k/uL RBC 4.84 (4.30-5.90) m/uL Hgb 15.0 (13.0-17.5) gm/dL Hct 44.7 (39.0-53.0) % MCV 92.4 (80.0-100.0) fL MCH 31.0 (25.0-35.0) pg MCHC 33.5 (31.0-37.0) g/dL RDW 12.4 (11.5-15.5) % Plt Count 241 (150-450) k/uL MPV 8.5 Neutrophils % 81 % Lymphocytes % 12 % Monocytes % 5 % Eosinophils % 1 % Basophils % 0 % Neutrophils # 12.7 H (1.3-7.7) k/uL Lymphocytes # 1.9 (1.0-4.8) k/uL Monocytes # 0.8 (0-1.0) k/uL Eosinophils # 0.2 (0-0.7) k/uL Basophils # 0.0 (0-0.2) k/uL Sodium 139 (137-145) mmol/L Potassium 4.1 (3.5-5.1) mmol/L Chloride 105 (98-107) mmol/L Carbon Dioxide 28 (22-30) mmol/L Anion Gap 6 mmol/L BUN 18 (9-20) mg/dL Creatinine 0.85 (0.66-1.25) mg/dL Est GFR (CKD-EPI)AfAm >90 (>60 ml/min/1.73 sqM) Est GFR (CKD-EPI)NonAf >90 (>60 ml/min/1.73 sqM) Glucose 114 H (74-99) mg/dL Calcium 8.9 (8.4-10.2) mg/dL Disposition Clinical Impression: Facial infection Disposition: ADMITTED IP TO THIS HOSP Condition: Serious Referrals: Bessie Salgado MD [Primary Care Provider] - 1-2 days Decision Time: 10:01
[2021-12-16 08:05] LABS: Basophils % (A) 0 %; Eosinophils # (A) 0.2 k/uL (0-0.7); Eosinophils % (A) 1 %; HCT 44.7 % (39.0-53.0); Lymphocytes # (A) 1.9 k/uL (1.0-4.8); Lymphocytes % (A) 12 %; MCHC 33.5 g/dL (31.0-37.0); MCV 92.4 fL (80.0-100.0); Mean Platelet Volume 8.5; Monocytes # (A) 0.8 k/uL (0-1.0); Monocytes % (A) 5 %; Neutrophils # (A) 12.7 k/uL (1.3-7.7); Neutrophils % (A) 81 %; Platelet Count 241 k/uL (150-450); RBC 4.84 m/uL (4.30-5.90); RDW 12.4 % (11.5-15.5); WBC 15.7 k/uL (3.8-10.6)
[2021-12-16] MEDS ORDERED: MORPHINE SULFATE 4 MG/ML SYRINGE IV STA (08:25)
[2021-12-16 08:34] LABS: African American GFR (CKD) >90 (>60 ml/min/1.73 sqM); Anion Gap 6 mmol/L; Blood Urea Nitrogen 18 mg/dL (9-20); Calcium 8.9 mg/dL (8.4-10.2); Carbon Dioxide 28 mmol/L (22-30); Chloride 105 mmol/L (98-107); Glucose 114 mg/dL (74-99); Non-African American GFR(CKD) >90 (>60 ml/min/1.73 sqM); Potassium 4.1 mmol/L (3.5-5.1); Sodium 139 mmol/L (137-145)
--- NOTE | 2021-12-16 09:23 | CT ---
EXAMINATION TYPE: CT soft tissue neck w con DATE OF EXAM: 12/16/2021 9:03 AM COMPARISON: None available HISTORY: Sublingual swelling, suspect Sachin angina CT DLP: 507.1 mGycm Automated exposure control for dose reduction was used. CONTRAST: CT scan of the neck is performed following with IV Contrast, patient injected with 100 ml mL of Isovu e 300. Axial images are obtained, coronal and sagittal reformatted images are reviewed. FINDINGS: Acute inflammatory changes are seen along the left side of the mandibular body and extending inferior ly into the left submandibular space with subcutaneous fat stranding, skin thickening, soft tissue sw elling and reactive fluid. No definite abscess formation or soft tissue gas is seen at that location. Prominent bilateral submandibular lymph nodes are noted. Minimal swelling of the left inferior aspect of the floor of the mouth muscles with questionable mild edema of the left sublingual space, without definite abscess formation or soft tissue gas. Grossly u nremarkable remainder of the base of the tongue and floor of the mouth. Enlarged nasopharyngeal and p alatine tonsils with slight narrowing of the superior aspect of the oropharyngeal lumen, possibly pos itional. Unremarkable remainder of the pharynx, larynx, visualized portion of the trachea and esophagus. Unrem arkable thyroid gland. Symmetrical unremarkable parotid and submandibular salivary glands. Scattered subcentimeter bilateral cervical lymph nodes, nonspecific. Patent major neck vessels. Bilateral pulmo nary apical paraseptal emphysematous changes. Minimal opacification of the right mastoid air cells. N o gross aggressive bone lesion. IMPRESSION: Acute inflammatory changes along the inferior aspect of the left side of the face extending to the le ft submandibular space as detailed above which could represents cellulitis. No definite abscess forma tion or soft tissue gas. Suspected early involvement of the left side of the floor of the mouth and the left sublingual space yet the adjacent airway are patent. This could progress to Sachin angina, please correlate clinically . Enlarged nasopharyngeal and palatine tonsils with reduced caliber of the superior aspect of the oroph aryngeal airway, possibly positional. Other findings as described above.
[2021-12-16] MEDS ORDERED: ONDANSETRON 4 MG/2 ML VIAL IVP PRN (09:58)
[2021-12-16] MEDS ORDERED: ACETAMINOPHEN TAB 325 MG TAB PO PRN (09:58)
[2021-12-16] MEDS ORDERED: NALOXONE 0.4 MG/ML 1 ML VIAL IV PRN (09:58)
[2021-12-16] MEDS ORDERED: DEXAMETHASONE SOD PHOSPHATE 10 MG/ML 1 ML VIAL IV STA (10:00)
[2021-12-16] MEDS: SODIUM CHLORIDE 0.9% 1,000 ML IV SCH ×2 (10:10→23:51)
[2021-12-16] MEDS: MORPHINE SULFATE 4 MG/ML SYRINGE IV PRN ×3 (10:15→20:13)
[2021-12-16 10:19] VITALS: RESP 18
[2021-12-16] MEDS ORDERED: ALBUTEROL NEBULIZED 2.5 MG/3 ML INHALATION PRN (11:07)
[2021-12-16] MEDS: AMPICILLIN-SULBACTAM 3 GM in SODIUM CHLORIDE 0.9% 100 ML IVPB SCH ×2 (12:41→18:19)
[2021-12-16] MEDS: PANTOPRAZOLE 40 MG TABLET PO SCH (12:42)
--- NOTE | 2021-12-16 15:03 | P.HPIM ---
History of Present Illness H&P Date: 12/16/21 Chief Complaint: Left facial swelling and tooth pain Patient is a 51-year-old male with a known history of hypertension, hyperlipidemia, GERD, diabetes type 2 [id number]-bdwagdkst, obstructive sleep apnea, asthma, anxiety and currently every day smoker presents to ER with the complaints of left-sided facial swelling. Patient states that he has been having left mandibular tooth pain and gum swelling started about 1-2 days ago. Patient went to see his primary care physician and was started on antibiotic course. Patient was referred to shower attendant. Patient presented to ER due to worsening symptoms. Denied any complaints of chest pain or shortness of breath. No nausea vomiting or abdominal pain or diarrhea. Patient did have symptoms of difficulty in breathing on admission. Patient has been afebrile. Denied any abdominal pain. No dysuria or hematuria. Review of Systems Constitutional: Patient did have subjective fever and chills. No generalized weakness or weight loss. Abdomen: Patient denied nausea vomiting and diarrhea and abdominal pain. Cardiovascular: Patient denies any chest pain or short of breath no palpitations. Respiratory: patient denied any cough is from production. No shortness of gisella th Neurologic: Patient denied any numbness or tingling headache. Musculoskeletal: Patient denies any complaints of joint swelling or deformity. Skin: Left-sided facial swelling and tooth pain. Psychiatric: Negative Endocrine: No heat or cold intolerance. No recent weight gain. Genitourinary: No dysuria or hematuria. All other 14 point ROS negative except the above Past Medical History Past Medical History: Asthma, Diabetes Mellitus, GERD/Reflux, Hyperlipidemia, Hypertension, Osteoarthritis (OA), Sleep Apnea/CPAP/BIPAP Additional Past Medical History / Comment(s): had bleeding with stools, migraines, vertigo,does not use cpap History of Any Multi-Drug Resistant Organisms: None Reported Past Surgical History: Orthopedic Surgery Additional Past Surgical History / Comment(s): JORDAN KNEE ARTHROSCOPY, TESTICLE SX CHILD, nose surgery Past Anesthesia/Blood Transfusion Reactions: No Reported Reaction Past Psychological History: Anxiety Smoking Status: Current every day smoker Past Alcohol Use History: None Reported Past Drug Use History: Marijuana - Past Family History Brother(s) Additional Family Medical History / Comment(s): with Flu Sister(s) Family Medical History: Renal Disease Additional Family Medical History / Comment(s): with kidney disease Mother Family Medical History: Hyperlipidemia, Hypertension, Renal Disease Father Family Medical History: Myocardial Infarction ([place]) Additional Family Medical History / Comment(s): Father of a [place] at the age of 59yrs. Medications and Allergies Home Medications Medication Instructions Recorded Confirmed Type Montelukast [Singulair] 10 mg PO DAILY 07/05/17 12/16/21 History Aspirin 81 mg PO DAILY #30 chewable 03/12/19 12/16/21 Rx lisinopriL [Zestril] 10 mg PO DAILY 03/12/19 12/16/21 History FLUoxetine HCL [PROzac] 20 mg PO DAILY 04/10/20 12/16/21 History Furosemide [Lasix] 20 mg PO BID 04/10/20 12/16/21 History Omeprazole 20 mg PO DAILY 04/10/20 12/16/21 History Potassium Chloride [Potassium 10 meq PO DAILY 10/13/20 12/16/21 History Chloride ER] Albuterol Nebulized [Ventolin 2.5 mg INHALATION RT-QID PRN 12/16/21 12/16/21 History Nebulized] Albuterol Sulfate [Albuterol 1 puff INHALATION RT-Q4H PRN 12/16/21 12/16/21 History Sulfate Hfa] Atorvastatin [Lipitor] 40 mg PO HS 12/16/21 12/16/21 History Ferrous Sulfate [Feosol] 325 mg PO DAILY 12/16/21 12/16/21 History Allergies Allergy/AdvReac Type Severity Reaction Status Date / Time No Known Allergies Allergy Verified 12/16/21 06:46 Physical Exam Vitals: Vital Signs Temp Pulse Resp BP Pulse Ox 12/16/21 10:12 75 18 180/102 98 12/16/21 08:38 78 20 178/103 96 12/16/21 06:43 97.7 F 75 18 147/87 97 Intake and Output 12/15/21 12/16/21 12/16/21 22:59 06:59 14:59 Other: Weight 113.398 kg PHYSICAL EXAMINATION: Patient is lying in the bed comfortably, no acute distress, awake alert and oriented.. HEENT: Normocephalic. Neck is supple. Pupils reactive. Nostrils clear. Oral cavity is moist. Left-sided facial swelling and lower molar tooth, gums swelling and tenderness. Neck reveals no JVD, carotid bruits, or thyromegaly. CHEST EXAMINATION: Trachea is central. Symmetrical expansion. Lung hester clear to auscultation and percussion. CARDIAC: Normal S1, S2 with no gallops. No murmurs ABDOMEN: Soft. Bowel sounds normal. No organomegaly. No abdominal bruits. Extremities: reveal no edema. No clubbing or cyanosis Neurologically awake, alert, oriented x3 with well-coordinated movements. No focal deficits noted Skin: No rash or skin lesions. Psychiatric: Coperative. Nonsuicidal Musculoskeletal: No joint swelling or deformity. Normal range of motion. Results CBC & Chem 7: 12/16/21 07:47 12/16/21 07:47 Labs: Abnormal Lab Results - Last 24 Hours (Table) 12/16/21 12/16/21 Range/Units 07:47 07:47 WBC 15.7 H (3.8-10.6) k/uL Neutrophils # 12.7 H (1.3-7.7) k/uL Glucose 114 H (74-99) mg/dL Thrombosis Risk Factor Assmnt - DVT/VTE Prophylaxis DVT/VTE Prophylaxis: Pharmacologic Prophylaxis ordered Assessment and Plan Assessment: Left mandibular tooth infection with facial swelling and cellulitis Poor dentition. Hypertension Hyperlipidemia Diabetes type 2 [id number] Ongoing nicotine addiction Anxiety Obstructive sleep apnea History of marijuana use DVT prophylaxis heparin subcu next Plan: Patient will be continued on IV hydration and antibiotics in the form of Unasyn. Continued with pain management. Patient will be started back on his home blood pressure medications and albuterol inhalation as needed for shortness of breath. Follow-up CBC and BMP. OMFS was consulted. Continue to follow closely. Follow blood cultures. Smoking cessation has been counseled extensively. Time with Patient: Greater than 30
[2021-12-16] MEDS: lisinopriL 10 MG TAB PO SCH (15:19)
[2021-12-16] MEDS: HEPARIN SODIUM,PORCINE/PF 5,000 UNIT/0.5 ML SYRINGE SQ SCH (15:19)
[2021-12-16] MEDS ORDERED: ATORVASTATIN 40 MG TAB PO SCH (21:00)
[2021-12-17] MEDS: MORPHINE SULFATE 4 MG/ML SYRINGE IV PRN ×4 (01:35→14:16)
[2021-12-17] MEDS: HEPARIN SODIUM,PORCINE/PF 5,000 UNIT/0.5 ML SYRINGE SQ SCH ×3 (01:35→16:06)
[2021-12-17] MEDS: AMPICILLIN-SULBACTAM 3 GM in SODIUM CHLORIDE 0.9% 100 ML IVPB SCH ×3 (01:35→11:22)
[2021-12-17] MEDS: PANTOPRAZOLE 40 MG TABLET PO SCH (07:38)
[2021-12-17] MEDS: lisinopriL 10 MG TAB PO SCH (07:38)
[2021-12-17] MEDS ORDERED: MONTELUKAST 10 MG TAB PO SCH (09:00)
[2021-12-17] MEDS ORDERED: ASPIRIN 81 MG PO SCH (09:00)
[2021-12-17] MEDS ORDERED: FLUoxetine HCL 20 MG CAP PO SCH (09:00)
[2021-12-17 09:13] LABS: Basophils # (A) 0.03 X 10*3/uL (0.00-0.10); Basophils % (A) 0.2 %; Eosinophils # (A) 0 X 10*3/uL (0.04-0.35); Eosinophils % (A) 0 %; HCT 44.3 % (39.6-50.0); HGB 14.5 g/dL (13.0-17.0); Immature Grans, Automated 0.4 %; Lymphocytes # (A) 1.61 X 10*3/uL (0.90-5.00); Lymphocytes % (A) 9.1 %; MCH 30.7 pg (27.0-32.0); MCHC 32.7 g/dL (32.0-37.0); MCV 93.7 fL (80.0-97.0); Mean Platelet Volume 11.4 fL (9.5-12.2); Monocytes # (A) 1.11 X 10*3/uL (0.20-1.00); Monocytes % (A) 6.3 %; NRBC Per 100 WBC 0 /100 WBCS (0.0-0.0); Neutrophils # (A) 14.81 X 10*3/uL (1.80-7.70); Platelet Count 275 X 10*3/uL (140-440); RBC 4.73 X 10*6/uL (4.40-5.60); RDW 12.8 % (11.5-14.5); WBC 17.63 X 10*3/uL (4.50-10.00)
[2021-12-17 09:27] LABS: African American GFR (CKD) 121.6 (60.0-200.0); Anion Gap 10.9 mmol/L (10.00-18.00); BUN/Creat Ratio 14.5 Ratio (12.00-20.00); Blood Urea Nitrogen 11.6 mg/dL (9.0-27.0); Calcium 9.3 mg/dL (8.7-10.3); Carbon Dioxide 26.1 mmol/L (20.0-27.5); Non-African American GFR(CKD) 104.9 (60.0-200.0); Potassium 4.4 mmol/L (3.5-5.5)
[2021-12-17] MEDS: SODIUM CHLORIDE 0.9% 1,000 ML IV SCH (11:23)
[2021-12-17 12:31] VITALS: BP 163/79; PULSE 65; TEMP 97.5
== END 2021-12-17 16:38 | disposition home or self-care (01) | DRG 158 ==
LOC: EC 06:35 → 3SCARD 09:58 → 4SSUR 16:57 → 5NMEDONC 19:36
PROVIDERS: ADMIT Internal Medicine; ATTEND Internal Medicine
DX: K04.7 Periapical abscess without sinus (principal); L03.211 Cellulitis of face; E11.9 Type 2 diabetes mellitus without complications; I10 Essential (primary) hypertension; E78.5 Hyperlipidemia, unspecified; K21.9 Gastro-esophageal reflux disease without esophagitis; M19.90 Unspecified osteoarthritis, unspecified site; G43.909 Migraine, unspecified, not intractable, without status migrainosus; K08.89 Other specified disorders of teeth and supporting structures; F17.210 Nicotine dependence, cigarettes, uncomplicated; F41.9 Anxiety disorder, unspecified; G47.33 Obstructive sleep apnea (adult) (pediatric); J45.909 Unspecified asthma, uncomplicated; Z79.51 Long term (current) use of inhaled steroids; Z79.82 Long term (current) use of aspirin; Z79.899 Other long term (current) drug therapy; Z82.49 Family history of ischemic heart disease and other diseases of the circulatory system; Z79.84 Long term (current) use of oral hypoglycemic drugs
CPT/HCPCS: 36415; 70491; 80048; 85025; 87040; 96365; 96375; 99284

== ENCOUNTER 2022-03-23 10:38 | Emergency (ER) | payer MEDICARE, OTHER ==
[2022-03-23 10:47] VITALS: TEMP 97.7
--- NOTE | 2022-03-23 12:03 | ED ---
URI HPI - General Chief Complaint: Upper Respiratory Infection Stated Complaint: Covid+ Time Seen by Provider: 03/23/22 10:55 Source: patient Mode of arrival: ambulatory Limitations: no limitations - History of Present Illness Initial Comments: Patient is a 51-year-old male presenting requesting monoclonal antibodies after testing positive for Covid at home. Patient states that for the last 3 days he has had a cough, sore throat, and body aches. He denies any chest pain, shortness of breath, weakness, nausea, vomiting, diarrhea, abdominal pain, dys phasia, sinus pain, dysuria, hematuria, hematochezia, melena. - Related Data Home Medications Medication Instructions Recorded Confirmed Montelukast [Singulair] 10 mg PO DAILY 07/05/17 12/16/21 lisinopriL [Zestril] 10 mg PO DAILY 03/12/19 12/16/21 FLUoxetine HCL [PROzac] 20 mg PO DAILY 04/10/20 12/16/21 Furosemide [Lasix] 20 mg PO BID 04/10/20 12/16/21 Omeprazole 20 mg PO DAILY 04/10/20 12/16/21 Potassium Chloride [Potassium 10 meq PO DAILY 10/13/20 12/16/21 Chloride ER] Albuterol Nebulized [Ventolin 2.5 mg INHALATION RT-QID PRN 12/16/21 12/16/21 Nebulized] Albuterol Sulfate [Albuterol 1 puff INHALATION RT-Q4H PRN 12/16/21 12/16/21 Sulfate Hfa] Atorvastatin [Lipitor] 40 mg PO HS 12/16/21 12/16/21 Ferrous Sulfate [Iron (65 MG 325 mg PO DAILY 12/16/21 12/16/21 Elemental)] Previous Rx's Medication Instructions Recorded Aspirin 81 mg PO DAILY #30 chewable 03/12/19 Amoxicillin/Potassium Clav 1 tab PO Q12HR 7 Days #14 tab 12/17/21 [Augmentin 875-125 Tablet] HYDROcodone/APAP 5-325MG [[place] 1 tab PO Q6HR PRN 3 Days #12 tab 12/17/21 5-325] Allergies Allergy/AdvReac Type Severity Reaction Status Date / Time No Known Allergies Allergy Verified 03/23/22 10:44 Review of Systems ROS Statement: Those systems with pertinent positive or pertinent negative responses have been documented in the HPI. ROS Other: All systems not noted in ROS Statement are negative. Past Medical History Past Medical History: Asthma, Diabetes Mellitus, GERD/Reflux, Hyperlipidemia, Hypertension, Osteoarthritis (OA), Sleep Apnea/CPAP/BIPAP Additional Past Medical History / Comment(s): had bleeding with stools, migraines, vertigo,does not use cpap History of Any Multi-Drug Resistant Organisms: None Reported Past Surgical History: Orthopedic Surgery Additional Past Surgical History / Comment(s): JORDAN KNEE ARTHROSCOPY, TESTICLE SX CHILD, nose surgery Past Anesthesia/Blood Transfusion Reactions: No Reported Reaction Past Psychological History: Anxiety Smoking Status: Current every day smoker Past Alcohol Use History: None Reported Past Drug Use History: Marijuana - Past Family History Brother(s) Additional Family Medical History / Comment(s): with Flu Sister(s) Family Medical History: Renal Disease Additional Family Medical History / Comment(s): with kidney disease Mother Family Medical History: Hyperlipidemia, Hypertension, Renal Disease Father Family Medical History: Myocardial Infarction ([place]) Additional Family Medical History / Comment(s): Father of a [place] at the age of 59yrs. General Exam Limitations: no limitations General appearance: alert, in no apparent distress Head exam: Present: atraumatic, normocephalic, normal inspection Eye exam: Present: normal appearance, EOMI. Absent: scleral icterus, periorbital swelling ENT exam: Present: normal exam, normal oropharynx, mucous membranes moist Neck exam: Present: normal inspection Respiratory exam: Present: normal lung sounds bilaterally. Absent: respiratory distress, wheezes, rales, rhonchi, stridor Cardiovascular Exam: Present: regular rate, normal rhythm, normal heart sounds. Absent: systolic murmur, diastolic murmur, rubs, gallop, clicks Neurological exam: Present: alert, oriented X3, CN II-XII intact Psychiatric exam: Present: normal affect, normal mood Skin exam: Present: warm, dry, intact, normal color. Absent: rash Course Vital Signs 03/23/22 03/23/22 03/23/22 10:45 13:42 14:36 Temperature 97.7 F Pulse Rate 79 73 70 Respiratory 18 20 18 Rate Blood Pressure 163/109 129/89 154/86 O2 Sat by Pulse 99 98 98 Oximetry Medical Decision Making - Medical Decision Making Patient is a 51-year-old male requesting monoclonal antibodies after testing positive for Covid at his doctor's office today. He admits to cough, sore throat, body aches for the last 3 days. He denies any dysphagia, difficulty breathing, chest pain, fever, chills. On examination heart and lungs are clear to auscultation, HEENT exam is WNL. Patient is given monoclonal antibodies and monitored for one hour for any adverse reactions. Patient tolerated treatment well. I educated him on supportive treatment and quarantine guidelines. Discussed return parameters answered all questions. Follow-up with PCP. Report back to ER if any new or worsening symptoms. Patient conveyed verbal understanding and agreed to the plan. My attending is Dr. Denise. - Lab Data Lab Results 03/23/22 Range/Units 11:27 Coronavirus (PCR) Not Detected (Not Detectd) Disposition Clinical Impression: COVID Disposition: HOME SELF-CARE Condition: Good Instructions (If sedation given, give patient instructions): COVID-19 (Coronavirus Disease 2019) (ED), How to Recover from COVID-19 at Home (ED) Additional Instructions: You must quarantine for 5 days starting from the first day of symptoms. If after 5 days you are symptom and fever free, you may go out in public while wearing a tight fitting mask at all times for an additional 5 days. Take Motrin and Tylenol as needed for fever and pain control. Get plenty of rest and drink plenty of fluids. Follow-up with PCP. Report back to ER with any new or worsening symptoms. Is patient prescribed a controlled substance at d/c from ED?: No Referrals: Bessie Salgado MD [Primary Care Provider] - 1-2 days Time of Disposition: 14:45
[2022-03-23] MEDS ORDERED: BEBTELOVIMAB (EUA) 175 MG/2 ML VIAL IV ONE (13:15)
[2022-03-23 14:36] VITALS: BP 154/86; PULSE 70; RESP 18
== END 2022-03-23 15:02 | disposition home or self-care (01) ==
LOC: EC 10:38
DX: U07.1 COVID-19 (principal); J45.909 Unspecified asthma, uncomplicated; E11.9 Type 2 diabetes mellitus without complications; E78.5 Hyperlipidemia, unspecified; K21.9 Gastro-esophageal reflux disease without esophagitis; I10 Essential (primary) hypertension; F17.200 Nicotine dependence, unspecified, uncomplicated; Z79.51 Long term (current) use of inhaled steroids; Z79.899 Other long term (current) drug therapy
CPT/HCPCS: 87635; 99283; Q0222

== ENCOUNTER → 2023-08-15 | Outpatient (CLI) | payer MEDICARE, OTHER ==
--- NOTE | 2023-08-15 17:22 | US ---
EXAMINATION TYPE: US st tissue neck DATE OF EXAM: 08/15/2023 COMPARISON: CT 03/25/2021 CLINICAL INDICATION: Male, 53 years old with history of R22.9 LUMP OF SKIN; Patient has felt palpable lump within lateral left chest/back area under arm pit level x 1 week. TECHNIQUE: Virology Teacher: Scanned patient's palpable area of concern within the left upper lateral ches t/back area. This is just below arm pit level. FINDINGS: Virology Teacher notes:*Isoechoic area seen at patient's area of concern: 8.0 x 7.9 x 3.4 cm. Area appears bilobed with hypoechoic division down the center. IMPRESSION: Bilobed solid isoechoic mass within the subcutaneous adipose layer measuring up to 8 cm at the patien t's left posterolateral chest wall palpable site. Recommend further CT evaluation. No corresponding a bnormality seen on the patient's 03/25/2021 CT.
== END | disposition home or self-care (01) ==
LOC: RADUSWWP 15:30
PROVIDERS: ATTEND Family Medicine
DX: R22.9 Localized swelling, mass and lump, unspecified (principal)
CPT/HCPCS: 76536

== ENCOUNTER → 2023-09-01 | Outpatient (CLI) | payer MEDICARE, OTHER ==
--- NOTE | 2023-09-01 17:05 | CT ---
EXAMINATION TYPE: CT chest wo con CT DLP: 648 mGycm, Automated exposure control for dose reduction was used. DATE OF EXAM: 09/01/2023 5:00 PM COMPARISON: 03/25/2021, ultrasound 08/15/2023 CLINICAL INDICATION:Male, 53 years old with history of R22.9 CHEST LOCALIZED SWELLING, MASS AND LUMP, TECHNIQUE: Multiple axial images were obtained through the chest. Sagittal and coronal reformats were created for review. Contrast used: mL of (None if empty) Oral contrast used: (None if empty) FINDINGS: LUNGS/ PLEURA: No focal consolidation, pneumothorax or pleural effusion. Mild emphysema changes AIRWAY: Patent and unremarkable. HEART: Size within normal limits. . Lipomatous hypertrophy changes intra-atrial septum. MEDIASTINUM: No gross evidence of adenopathy. VASCULATURE: No aortic aneurysm. MUSCULOSKELETAL: No acute osseous abnormalities SOFT TISSUES/LYMPH NODES:No lymphadenopathy, No masses seen in the area of the left upper back. Visua lly fat-containing subcutaneous tissues present. No soft tissue masses identified. LOWER NECK: No significant findings. UPPER ABDOMEN: Diffuse low-attenuation liver parenchyma. IMPRESSION: 1. No masses definitively visualized unclear if mass on ultrasound is in the [id number]. No palpa ble area was marked by the CT techs/patient. If the lesion is in the low neck near the shoulder and m ay be out of the [id number] consider CT neck with extension to the aortic arch. 2. Mild emphysema changes. Follow up recommendations for incidental pulmonary nodules, if there are any, are per [employer] or [employer]. https://radiopaedia.org/articles/ywdaxuqckn-selveua-[email or web address]?lang=us
== END | disposition home or self-care (01) ==
LOC: RADCTMAIN 16:06
PROVIDERS: ATTEND Family Medicine
DX: J43.9 Emphysema, unspecified (principal); R22.9 Localized swelling, mass and lump, unspecified
CPT/HCPCS: 71250

== ENCOUNTER 2023-10-11 08:05 | Day surgery (SDC) | payer MEDICARE, OTHER ==
[~2023-10-11 08:05] MED LIST changes: -LACTATED RINGERS 1,000 ML IV SCH; -LIDOCAINE 1% (10MG/ML) FOR IV START INTRADERMA PRN; +Pre Op ABX Message 1 EACH MISC MISCELLANE ONE
[2023-10-11] MEDS ORDERED: HYDROmorphone 0.5 MG/0.5 ML SYRINGE IVP PRN (08:30)
[2023-10-11] MEDS: LACTATED RINGERS 1,000 ML IV SCH (08:50)
[2023-10-11 08:59] LABS: Glucose,Whole Blood 122 mg/dL (70-110)
[2023-10-11] MEDS: HEPARIN SODIUM,PORCINE 5,000 UNIT/ML 1 ML VIAL SQ ONE (09:04)
[2023-10-11] MEDS: DEXAMETHASONE SOD PHOSPHATE 4 MG/ML 1 ML VIAL IV ONE (09:04)
[2023-10-11] MEDS: ACETAMINOPHEN TAB 500 MG TAB ONE (09:04)
[2023-10-11] MEDS: ONDANSETRON 4 MG/2 ML VIAL IVP ONE (09:04)
[2023-10-11 09:07] VITALS: TEMP 97.8
[2023-10-11] MEDS ORDERED: KETAMINE HCL IN 0.9 % NACL 50 MG/5 ML SYRINGE ONE (10:07)
[2023-10-11] MEDS ORDERED: MIDAZOLAM 2 MG/2 ML VIAL ONE (10:07)
[2023-10-11] MEDS ORDERED: fentaNYL (PF) 50 MCG/ML 2 ML AMP ONE (10:07)
[2023-10-11] MEDS ORDERED: PROPOFOL 10 MG/ML 20 ML VIAL IV ONE (10:07)
[2023-10-11] MEDS: LIDOCAINE 0.5%-EPI 1:200,000 50 ML VIAL SQ ONE ×2 (10:34)
--- NOTE | 2023-10-11 10:46 | P.OP ---
Date of Procedure: 10/11/23 Preoperative Diagnosis: Left chest wall lipoma Postoperative Diagnosis: Left chest wall lipoma Procedure(s) Performed: Excision of left chest wall lipoma Anesthesia: MAC Surgeon: Joe Hassan Estimated Blood Loss (ml): 5 Pathology: other (Lipoma) Condition: stable Disposition: PACU Description of Procedure: Patient placed in the operative table in the lateral position. He received IV sedation. His left chest wall was prepped draped sterile fashion. Over the left axillary line there was a 10 cm lipoma. The skin was incised using blunt and sharp dissection electrocautery lipomas dissected free. The specimen was sent to pathology. The wound is better hemostasis. There was no bleeding seen. Skin was closed with 2-0 nylon suture. Patient tolerated procedure well. He was sent to recovery room in stable condition.
[2023-10-11 11:12] VITALS: RESP 16
[2023-10-11 11:44] VITALS: BP 133/77; PULSE 82
== END 2023-10-11 11:16 | disposition home or self-care (01) ==
LOC: OR 08:05
PROVIDERS: ATTEND Surgery
DX: D17.1 Benign lipomatous neoplasm of skin and subcutaneous tissue of trunk (principal); I10 Essential (primary) hypertension; E78.5 Hyperlipidemia, unspecified; G47.33 Obstructive sleep apnea (adult) (pediatric); J45.909 Unspecified asthma, uncomplicated; E11.9 Type 2 diabetes mellitus without complications; M19.90 Unspecified osteoarthritis, unspecified site; F41.9 Anxiety disorder, unspecified; G43.909 Migraine, unspecified, not intractable, without status migrainosus; F17.200 Nicotine dependence, unspecified, uncomplicated; Z79.51 Long term (current) use of inhaled steroids; Z79.899 Other long term (current) drug therapy
CPT/HCPCS: 88304; 84132; 21601; J2250; J1644; J1100; J2405; J3010; J2704

== ENCOUNTER → 2024-02-12 | Outpatient (CLI) | payer MEDICARE, OTHER ==
--- NOTE | 2024-02-12 09:20 | US ---
EXAMINATION TYPE: US arterial LE single level DATE OF EXAM: 02/12/2024 9:05 AM CLINICAL INDICATION: Male, 53 years old with history of M79.605 M79.604 PAIN IN LT LEG,PAIN IN RT LEG ; Bilateral leg pain. Thickened toe nails. Callus feet. History of: Smoker: Current Smoker Hypertension: Takes medication Diabetic: Borderline Hyperlipidemia: Yes TIA/CVA: no Previous Vascular Surgery: no CAD: no SC: no Vascular Ulcers: no Claudication: no Gangrene: no Doppler Waveforms: Right: Multiphasic Left: Multiphasic Right Brachial Pressure: 130 Left Brachial Pressure: 137 Ankle-Brachial Indices: Right: 1.3 Left: 1.1 (Vessel hardening > 1.4; Normal 0.9 - 1.4, Moderate 0.7 - 0.9, Severe 0.5-0.7) Toe Brachial Indices: Right: 1.1 Left: 0.9 IMPRESSION: Normal ankle-brachial indices bilaterally.
== END | disposition home or self-care (01) ==
LOC: RADUSWWP 08:36
PROVIDERS: ATTEND Family Medicine
DX: M79.605 Pain in left leg (principal); M79.604 Pain in right leg; E78.5 Hyperlipidemia, unspecified; I10 Essential (primary) hypertension
CPT/HCPCS: 93922

== ENCOUNTER 2024-03-21 17:46 | Emergency (ER) | payer MEDICARE, OTHER ==
[2024-03-21 18:00] VITALS: RESP 16
--- NOTE | 2024-03-21 18:45 | ED ---
Extremity Problem HPI - General Chief complaint: Extremity Problem,Nontraumatic Stated complaint: R leg pain Time Seen by Provider: 03/21/24 18:41 Source: patient, RN notes reviewed Mode of arrival: ambulatory Limitations: no limitations - History of Present Illness Initial comments: 53-year-old male presenting with right lower leg pain since this morning. States he woke up and he has been having some pain in the back of his right calf. He states he had a varicose vein procedure 1 month ago. Denies history of blood clots. States he always has swelling in both of his lower legs, denies any new or worsening swelling on the right side. He takes Lasix daily. States he has been heavy lifting lately however denies specific known trauma or injury. Denies redness or warmth of the leg. Denies any new chest pain or shortness of breath. Denies blood thinners. - Related Data Home Medications Medication Instructions Recorded Confirmed Montelukast [Singulair] 10 mg PO HS 07/05/17 03/21/24 lisinopriL [Zestril] 10 mg PO DAILY 03/12/19 03/21/24 FLUoxetine HCL [PROzac] 20 mg PO DAILY 04/10/20 03/21/24 Furosemide [Lasix] 20 mg PO BID 04/10/20 03/21/24 Omeprazole 20 mg PO DAILY 04/10/20 03/21/24 Potassium Chloride [Potassium 10 meq PO DAILY 10/13/20 03/21/24 Chloride ER] Atorvastatin [Lipitor] 40 mg PO HS 12/16/21 03/21/24 Loratadine [Claritin] 10 mg PO DAILY 09/08/23 03/21/24 metFORMIN HCL ER [Glucophage XR] 500 mg PO DAILY 03/21/24 03/21/24 Allergies Allergy/AdvReac Type Severity Reaction Status Date / Time No Known Allergies Allergy Verified 03/21/24 21:00 Review of Systems ROS Statement: Those systems with pertinent positive or pertinent negative responses have been documented in the HPI. ROS Other: All systems not noted in ROS Statement are negative. Past Medical History Past Medical History: Asthma, Diabetes Mellitus, GERD/Reflux, Hyperlipidemia, Hypertension, Liver Disease, Osteoarthritis (OA), Sleep Apnea/CPAP/BIPAP Additional Past Medical History / Comment(s): migraines, vertigo,does not use cpap,fatty liver, History of Any Multi-Drug Resistant Organisms: None Reported Past Surgical History: Orthopedic Surgery Additional Past Surgical History / Comment(s): JORDAN KNEE ARTHROSCOPY, TESTICLE SX CHILD, nose surgery. COLONOSCOPY/EGD Past Anesthesia/Blood Transfusion Reactions: No Reported Reaction Past Psychological History: Anxiety Smoking Status: Current every day smoker - Past Family History Brother(s) Additional Family Medical History / Comment(s): with Flu Sister(s) Family Medical History: Renal Disease Additional Family Medical History / Comment(s): with kidney disease Mother Family Medical History: Cancer, Hyperlipidemia, Hypertension, Renal Disease Additional Family Medical History / Comment(s): pancreas??? Father Family Medical History: Myocardial Infarction (GA) Additional Family Medical History / Comment(s): Father of a GA at the age of 59yrs. General Exam Limitations: no limitations General appearance: alert, in no apparent distress Head exam: Present: atraumatic, normocephalic, normal inspection Respiratory exam: Present: normal lung sounds bilaterally. Absent: respiratory distress, wheezes, rales, rhonchi, stridor Cardiovascular Exam: Present: regular rate, normal rhythm, normal heart sounds. Absent: systolic murmur, diastolic murmur, rubs, gallop, clicks Right Knee exam: Present: normal inspection, full ROM. Absent: tenderness, swelling Lower Leg exam: Present: full ROM, tenderness (Diffuse tenderness over posterior lower leg. No erythema or warmth. No palpable cord. Full range of motion of knee and ankle. Dorsalis pedis pulses intact bilaterally.), swelling (1+ pitting edema in bilateral lower legs.) Ankle exam: Present: normal inspection, full ROM. Absent: tenderness, swelling Foot/Toe exam: Present: normal inspection, full ROM. Absent: tenderness, swelling Neurovascular tendon exam: Present: no vascular compromise. Absent: pulse deficit, abnormal cap refill, sensory deficit Course Vital Signs 03/21/24 03/21/24 17:57 21:04 Temperature 97.5 F L 97.0 F L Pulse Rate 86 72 Respiratory 16 16 Rate Blood Pressure 158/76 137/97 O2 Sat by Pulse 98 97 Oximetry Medical Decision Making - Medical Decision Making Was pt. sent in by a medical professional or institution (, PA, PORTABLE MACHINE CUTTER, urgent care, hospital, or halfway...) When possible be specific @ -No Did you speak to anyone other than the patient for history (EMS, parent, family, police, friend...)? What history was obtained from this source @ -No Did you review nursing and triage notes (agree or disagree)? Why? @ -I reviewed and agree with nursing and triage notes Were old charts reviewed (outside hosp., previous admission, EMS record, old EKG, old radiological studies, urgent care reports/EKG's, halfway records)? Report findings @ -No old charts were reviewed Differential Diagnosis (chest pain, altered mental status, abdominal pain women, abdominal pain men, vaginal bleeding, weakness, fever, dyspnea, syncope, headache, dizziness, GI bleed, back pain, seizure, CVA, palpatations, mental health, musculoskeletal)? @ -Differential Musculoskeletal Muscular strain, contusion, ligament sprain, fracture, arthritis, septic arthritis, bursitis, cellulitis, muscle spasm, nerve compression, DVT, arterial occlusion, herpes zoster, electrolyte abnormality, tumor.... This is not meant to be in all inclusive list EKG interpreted by me (3pts min.). @ -None X-rays interpreted by me (1pt min.). @ -X-ray revealed no acute fracture, there is soft tissue swelling CT interpreted by me (1pt min.). @ -None done U/S interpreted by me (1pt. min.). @ -Ultrasound was negative for DVT What testing was considered but not performed or refused? (CT, X-rays, U/S, labs)? Why? @ -Lab work not indicated due to no signs of bacterial infection or acute edema What meds were considered but not given or refused? Why? @ -None Did you discuss the management of the patient with other professionals (professionals i.e. DrDemarco, PA, PORTABLE MACHINE CUTTER, lab, RT, psych nurse, health and social care teacher, taxi driver, teacher, staff combat information center officer, case work aide)? Give summary @ -No Was smoking cessation discussed for >3mins.? @ -No Was critical care preformed (if so, how long)? @ -No Were there social determinants of health that impacted care today? How? (Homelessness, low income, unemployed, alcoholism, drug addiction, transportatio n, low edu. Level, literacy, decrease access to med. care, nursing home, rehab)? @ -No Was there de-escalation of care discussed even if they declined (Discuss DNR or withdrawal of care, Hospice)? DNR status @ -No What co-morbidities impacted this encounter? (DM, HTN, Smoking, COPD, CAD, Cancer, CVA, ARF, Chemo, Hep., AIDS, mental health diagnosis, sleep apnea, morbid obesity)? @ -None Was patient admitted / discharged? Hospital course, mention meds given and route, prescriptions, significant lab abnormalities, going to OR and other pertinent info. @ -Patient was discharged. Patient was seen and evaluated for right lower leg pain x 1 day. Denies any new swelling. No sign of bacterial infection. Patient is neurovascularly intact. He is able to weight-bear. Ultrasound was negative for DVT. X-ray was negative for fracture. Discussed there is no signs of emergent etiology causing pain upon evaluation today. symptoms likely muscular in nature. Strict return parameters discussed with patient and he shows understanding and agrees to plan. Advised close follow-up with PCP. Case was discussed with my ED attending Dr. Jackson. Patient discharged in stable condition. Undiagnosed new problem with uncertain prognosis? @ -No Drug Therapy requiring intensive monitoring for toxicity (Heparin, Nitro, Insulin, Cardizem)? @ -No Were any procedures done? @ -No Diagnosis/symptom? @ -Right lower leg pain Acute, or Chronic, or Acute on Chronic? @ -Acute Uncomplicated (without systemic symptoms) or Complicated (systemic symptoms)? @ -Uncomplicated Side effects of treatment? @ -No Exacerbation, Progression, or Severe Exacerbation? @ -No Poses a threat to life or bodily function? How? (Chest pain, [place], GA, pneumonia, PE, COPD, DKA, ARF, appy, cholecystitis, CVA, Diverticulitis, Homicidal, S uicidal, threat to staff... and all critical care pts) @ -Unlikely at this time Disposition Clinical Impression: Pain in right lower leg Disposition: HOME SELF-CARE Condition: Stable Instructions (If sedation given, give patient instructions): Muscle Strain (ED) Additional Instructions: Please return to the Emergency Department if symptoms worsen or any other concerns. Is patient prescribed a controlled substance at d/c from ED?: No Referrals: Bessie Salgado MD [Primary Care Provider] - 1-2 days Time of Disposition: 20:57
--- NOTE | 2024-03-21 19:37 | XR ---
EXAMINATION TYPE: XR tibia fibula RT DATE OF EXAM: 03/21/2024 7:12 PM CLINICAL INDICATION:Male, 53 years old with history of right lower leg pain and swelling that began t his morning. COMPARISON: None TECHNIQUE: XR tibia fibula RT; tibia/fibula was examined in AP and lateral projections. FINDINGS: No acute fractures or dislocations appreciated. Spurring and degenerative changes of the calcaneus. T here is nonspecific soft tissue swelling of the right lower extremity. No radiopaque foreign bodies. IMPRESSION: 1. No acute fractures. 2. Right lower extremity soft tissue swelling.
--- NOTE | 2024-03-21 20:03 | US ---
EXAMINATION TYPE: US venous doppler duplex LE RT DATE OF EXAM: 03/21/2024 6:41 PM COMPARISON: US 2019. Right tib-fib x-ray from the same day. CLINICAL INDICATION: Male, 53 years old with history of pain; Patient states pain that started this m orning. No hx of DVT. Patient not on thinners SIDE PERFORMED: Right TECHNIQUE: The lower extremity deep venous system is examined utilizing real time linear array sonog hieu with graded compression, doppler sonography and color-flow sonography. VESSELS IMAGED: Common Femoral Vein Deep Femoral Vein Greater Saphenous Vein * Femoral Vein Popliteal Vein Small Saphenous Vein * Proximal Calf Veins (* superficial vessels) Right Leg: Appears negative for DVT today IMPRESSION: No sonographic evidence for deep venous thrombosis of the right lower extremity.
[2024-03-21 21:04] VITALS: BP 137/97; PULSE 72; TEMP 97
== END 2024-03-21 21:05 | disposition home or self-care (01) ==
LOC: EC 17:46
DX: M79.661 Pain in right lower leg (principal); F17.200 Nicotine dependence, unspecified, uncomplicated
CPT/HCPCS: 99284

== ENCOUNTER → 2024-04-26 | Outpatient (CLI) | payer MEDICARE, OTHER ==
--- NOTE | 2024-04-26 11:26 | CT ---
EXAMINATION TYPE: CT chest wo con DATE OF EXAM: 04/26/2024 COMPARISON: 09/01/2023 HISTORY: COPD CT DLP: 869 mGycm. Automated Exposure Control for Dose Reduction was Utilized. TECHNIQUE: CT scan of the thorax is performed without IV contrast. FINDINGS: LUNGS: Groundglass changes involving the right lung apex likely in the basis of atelectasis. Mild manny pical scarring or pleural thickening. No consolidative pneumonia or pulmonary edema. There are pulmonary micronodules with reference to image 35 series 4 in the right upper lobe measurin g 2 mm and measuring 3 mm within the left upper lobe image 38. Findings retrospectively stable. There is very mild interlobular septal thickening along the periphery of the lung bases may represent eugene y fibrotic changes. MEDIASTINUM: Lack of IV contrast is noted to limit evaluation for mediastinal and especially hilar ad enopathy. There are no definitive greater than 1 cm hilar or mediastinal lymph nodes. No cardiomega ly or pericardial effusion is seen. Mild coronary artery calcification. OTHER: Liver low in attenuation correlate for underlying hepatocellular disease\hepatic steatosis. Th ickening of the adrenal glands nonspecific and too small to characterize but most typical of benign h yperplasia or adenoma. Mild degenerative change of the spine.. IMPRESSION: 1. Mild COPD with stable appearing bilateral pulmonary micronodules. Recommend 12 month follow-up CT scan according to Fleischner Society guidelines as clinically warranted. Follow-up recommendations for incidental pulmonary nodules are per [employer]ischner?s [employer] or [employer].
== END | disposition home or self-care (01) ==
LOC: RADCTMAIN 10:33
PROVIDERS: ATTEND Internal Medicine Pulmonary Disease
DX: J44.89 Other specified chronic obstructive pulmonary disease (principal); J45.51 Severe persistent asthma with (acute) exacerbation; G47.33 Obstructive sleep apnea (adult) (pediatric); K21.9 Gastro-esophageal reflux disease without esophagitis; R91.8 Other nonspecific abnormal finding of lung field; I10 Essential (primary) hypertension; Z72.0 Tobacco use
CPT/HCPCS: 71250

== ENCOUNTER 2025-03-15 12:45 | Emergency (ER) | payer MEDICARE, OTHER ==
[2025-03-15 12:52] VITALS: TEMP 98
[2025-03-15 12:53] LABS: Glucose,Whole Blood 120 mg/dL (70-110)
[2025-03-15] MEDS: SODIUM CHLORIDE 0.9% 500 ML 500 ML IV ONE (13:44)
[2025-03-15 13:45] LABS: Basophils # (A) 0.05 10*3/uL (0.00-0.10); Basophils % (A) 0.5 %; Eosinophils # (A) 0.19 10*3/uL (0.04-0.35); Eosinophils % (A) 1.8 %; HCT 43.0 % (39.6-50.0); HGB 14.6 g/dL (13.0-17.0); Lymphocytes # (A) 2.27 10*3/uL (0.90-5.00); Lymphocytes % (A) 21.7 %; MCH 30.9 pg (27.0-32.0); MCHC 34.0 g/dL (32.0-37.0); MCV 90.9 fL (80.0-97.0); Monocytes # (A) 0.79 10*3/uL (0.20-1.00); Monocytes % (A) 7.5 %; Neutrophils # (A) 7.14 10*3/uL (1.80-7.70); Neutrophils % (A) 68.1 %; Platelet Count 249 10*3/uL (140-440); RBC 4.73 10*6/uL (4.40-5.60); RDW 12.7 % (11.5-14.5); WBC 10.48 10*3/uL (4.50-10.00)
[2025-03-15] MEDS: methylPREDNISolone SOD SUCCI 125 MG/2 ML VIAL IV STA (13:47)
[2025-03-15] MEDS: MAGNESIUM SULFATE-D5W PMX 1 GM in DEXTROSE/WATER 1 100ML.BAG IVPB STA (13:47)
[2025-03-15 13:52] LABS: ALT 31 U/L (4-49); AST 31 U/L (17-59); African American GFR (CKD) >90 (>60 ml/min/1.73 sqM); Albumin 4.2 g/dL (3.5-5.0); Alkaline Phosphatase 70 U/L (38-126); Anion Gap 9 mmol/L; Blood Urea Nitrogen 13 mg/dL (9-20); Calcium 9.2 mg/dL (8.4-10.2); Carbon Dioxide 23 mmol/L (22-30); Chloride 106 mmol/L (98-107); Glucose 105 mg/dL (74-99); Magnesium 2.1 mg/dL (1.6-2.3); Non-African American GFR(CKD) >90 (>60 ml/min/1.73 sqM); Potassium 4.2 mmol/L (3.5-5.1); Sodium 138 mmol/L (137-145); Total Protein 7.0 g/dL (6.3-8.2)
[2025-03-15 13:56] LABS: INR 1.0 (<1.2); Partial Thromboplastin Time 26.0 sec (22.0-30.0); Prothrombin Time 11.5 sec (10.0-12.5)
[2025-03-15 14:01] LABS: NT-Pro-B-Type Natriuretic Pept 105 pg/mL
--- NOTE | 2025-03-15 14:03 | XR ---
EXAMINATION TYPE: XR chest 2V DATE OF EXAM: 03/15/2025 1:59 PM COMPARISON: Chest radiographs from 03/11/2019, CT chest 04/26/2024 TECHNIQUE: XR chest 2V Frontal and lateral views of the chest. CLINICAL INDICATION:Male, 54 years old with history of difficulty breathing; FINDINGS: Lungs/Pleura: There is no evidence of pleural effusion, focal consolidation, or pneumothorax. Pulmonary vascularity: Unremarkable. Heart/mediastinum: Cardiomediastinal silhouette is unremarkable. Musculoskeletal: No acute osseous pathology. IMPRESSION: No acute cardiopulmonary disease/process. [facility], , 03/15/2025 2:00 PM
[2025-03-15] MEDS: IPRATROPIUM-ALBUTEROL 3 ML NEB INHALATION STA (14:37)
[2025-03-15] MEDS ORDERED: AZITHROMYCIN 500 MG TAB PO STA (14:58)
--- NOTE | 2025-03-15 14:58 | ED ---
General Adult HPI - General Chief complaint: Dizziness Stated complaint: Dizziness Time Seen by Provider: 03/15/25 12:54 Source: patient, RN notes reviewed, old records reviewed Mode of arrival: ambulatory Limitations: no limitations - History of Present Illness Initial comments: 54-year-old male presents emergency department complaining of cough, congestion, lightheadedness and generalized weakness. Has been ongoing for a few days. Mild nausea but no emesis. No diarrhea. No chest pain. Patient has a history of asthma, diabetes, hypertension, hyperlipidemia. Patient is chronic lower extremity swelling. Denies any known sick contacts. States he gets lightheaded occasionally when he stands up. Improved when sitting down. Denies room spinning sensation. Denies vertigo symptoms. Has no other acute complaints at this time. Presents for further evaluation at this time. - Related Data Home Medications Medication Instructions Recorded Confirmed Montelukast [Singulair] 10 mg PO HS 07/05/17 03/21/24 lisinopriL [Zestril] 10 mg PO DAILY 03/12/19 03/21/24 FLUoxetine HCL [PROzac] 20 mg PO DAILY 04/10/20 03/21/24 Furosemide [Lasix] 20 mg PO BID 04/10/20 03/21/24 Omeprazole 20 mg PO DAILY 04/10/20 03/21/24 Potassium Chloride [Potassium 10 meq PO DAILY 10/13/20 03/21/24 Chloride ER] Atorvastatin [Lipitor] 40 mg PO HS 12/16/21 03/21/24 Loratadine [Claritin] 10 mg PO DAILY 09/08/23 03/21/24 metFORMIN HCL ER [Glucophage XR] 500 mg PO DAILY 03/21/24 03/21/24 Previous Rx's Medication Instructions Recorded Albuterol Inhaler [Ventolin Hfa 1 - 2 puff INHALATION Q6H PRN #1 03/15/25 Inhaler] each Azithromycin [Zithromax] 250 mg PO DAILY 4 Days #4 tab 03/15/25 predniSONE [Deltasone] 40 mg PO DAILY 5 Days #10 tab 03/15/25 Allergies Allergy/AdvReac Type Severity Reaction Status Date / Time No Known Allergies Allergy Verified 03/21/24 21:00 Review of Systems ROS Statement: Those systems with pertinent positive or pertinent negative responses have been documented in the HPI. Review of Systems: CONST: Denies fever EYES: Denies blurry vision ENT: Denies nasal congestion C/V: Denies Chest pain RESP: Endorses cough, congestion GI: Denies abdominal pain : Denies dysuria SKIN: Denies rash. MSK: Denies joint pain. NEURO: Denies headache ROS Other: All systems not noted in ROS Statement are negative. Past Medical History Past Medical History: Asthma, Diabetes Mellitus, GERD/Reflux, Hyperlipidemia, Hypertension, Liver Disease, Osteoarthritis (OA), Sleep Apnea/CPAP/BIPAP Additional Past Medical History / Comment(s): migraines, vertigo,does not use cpap,fatty liver, History of Any Multi-Drug Resistant Organisms: None Reported Past Surgical History: Orthopedic Surgery Additional Past Surgical History / Comment(s): JORDAN KNEE ARTHROSCOPY, TESTICLE SX CHILD, nose surgery. COLONOSCOPY/EGD Past Anesthesia/Blood Transfusion Reactions: No Reported Reaction Past Psychological History: Anxiety Smoking Status: Current every day smoker - Past Family History Brother(s) Additional Family Medical History / Comment(s): with Flu Sister(s) Family Medical History: Renal Disease Additional Family Medical History / Comment(s): with kidney disease Mother Family Medical History: Cancer, Hyperlipidemia, Hypertension, Renal Disease Additional Family Medical History / Comment(s): pancreas??? Father Family Medical History: Myocardial Infarction ([place]) Additional Family Medical History / Comment(s): Father of a VA at the age of 59yrs. General Exam - General Exam Comments Initial Comments: General: Appears in no acute distress. HEAD: Normal with no signs of head trauma. EYES: PERRLA, EOMI, conjunctiva normal, no discharge. ENT: Hearing grossly intact, normal oropharynx. RESPIRATORY: Bilateral end expiratory wheezing. No significant hypoxia or i ncreased work of breathing. C/V: Regular rate and rhythm. S1 and S2 auscultated, Chronic bilateral lower extremity pitting edema, peripheral pulses 2+ and intact throughout ABD: Abd is soft, nontender, nondistended EXT: Normal range of motion, no obvious deformity SKIN: No rashes or lesions observed on exposed skin. NEURO: Alert and oriented x 4. NIH is 0. Normal cerebellar function as evident by absence of dysdiadochokinesia, normal finger-nose testing, normal [id number] testing. Limitations: no limitations Course Vital Signs 03/15/25 03/15/25 03/15/25 12:49 14:31 14:37 Temperature 98 F Pulse Rate 83 68 Pulse Rate [ 70 Right Prone Pulse Oximetery ] Pulse Rate [ 80 Right Sitting Pulse Oximetery ] Pulse Rate [ 75 Right Supine Pulse Oximetery ] Respiratory 16 Rate Blood Pressure 179/76 Blood Pressure 138/83 [Right Arm Sitting] Blood Pressure 152/87 [Right Arm Standing] Blood Pressure 140/82 [Right Arm Supine] O2 Sat by Pulse 98 Oximetry Medical Decision Making - Medical Decision Making Was pt. sent in by a medical professional or institution (, MICHAEL, HANDBAG FRAMES INSPECTOR, urgent care, hospital, or care home...) When possible be specific @ -No Did you speak to anyone other than the patient for history (EMS, parent, family, police, friend...)? What history was obtained from this source @ -No Did you review nursing and triage notes (agree or disagree)? Why? @ -I reviewed and agree with nursing and triage notes Were old charts reviewed (outside hosp., previous admission, EMS record, old EKG, old radiological studies, urgent care reports/EKG's, care home records)? Report findings @ -Today's EKG compared with EKG from February 2019 with no significant acute change. Differential Diagnosis (chest pain, altered mental status, abdominal pain women, abdominal pain men, vaginal bleeding, weakness, fever, dyspnea, syncope, headache, dizziness, GI bleed, back pain, seizure, CVA, palpatations, mental health, musculoskeletal)? @ -Asthma, bronchitis, tracheobronchitis, pneumonia, electrolyte abnormality. This list is not all inclusive. EKG interpreted by me (3pts min.). @ -As above X-rays interpreted by me (1pt min.). @ -Chest x-ray reveals no obvious acute cardiopulmonary process. CT interpreted by me (1pt min.). @ -None done U/S interpreted by me (1pt. min.). @ -None done What testing was considered but not performed or refused? (CT, X-rays, U/S, labs)? Why? @ -None What meds were considered but not given or refused? Why? @ -None Did you discuss the management of the patient with other professionals (professionals i.e. , PA, HANDBAG FRAMES INSPECTOR, lab, RT, psych nurse, social problems specialist, reformatory attendant, teacher, mobile patrol officer, bottle caser)? Give summary @ -No Was smoking cessation discussed for >3mins.? @ -No Was critical care preformed (if so, how long)? @ -No Were there social determinants of health that impacted care today? How? (Homelessness, low income, unemployed, alcoholism, drug addiction, trans portation, low edu. Level, literacy, decrease access to med. care, senior care, rehab)? @ -No Was there de-escalation of care discussed even if they declined (Discuss DNR or withdrawal of care, Hospice)? DNR status @ -No What co-morbidities impacted this encounter? (DM, HTN, Smoking, COPD, CAD, Cancer, CVA, ARF, Chemo, Hep., AIDS, mental health diagnosis, sleep apnea, morbid obesity)? @ -Asthma Was patient admitted / discharged? Hospital course, mention meds given and route, prescriptions, significant lab abnormalities, going to OR and other pertinent info. @ -Based on patient's presentation physical exam, presents primarily with what appears to be a URI infection and asthma exacerbation. Has some lightheadedness as well which seems nonspecific. Patient will receive a small fluid bolus, tyra athing treatment, IV magnesium, IV steroids. Patient was in agreement this plan. We will obtain general workup. He was in agreement this plan. Vitals are within acceptable limits. EKG shows no signs of acute ischemia. Chest x-ray is unremarkable. Laboratory studies remarkable for mild leukocytosis 10.48 which is very minimal. The remainder the labs including lactic acid within normal limits. On reevaluation, patient is feeling improved. I discussed results with him. He would like to go home. He was in agreement this plan. Orthostatics were negative. Patient will be discharged home with a diagnosis of tracheobronchitis and asthma. He will be given a prescription for prednisone, albuterol inhaler, azithromycin as well as given a dose of azithromycin prior to discharge. Liang underwood was in agreement this plan. Strict return precautions discussed. I will provide the patient with a prescription for prednisone, albuterol inhaler, azithromycin. I instructed the patient to follow up with their PCP in the next 1-3 days.. I explained that the patient should return to the emergency department if they experience any worsening symptoms. Strict return precautions were discussed with the patient. The patient expressed understanding of these instructions. I answered all questions that the patient had. The patient was discharged home in good condition with their prescriptions and follow up information. Undiagnosed new problem with uncertain prognosis? @ -No Drug Therapy requiring intensive monitoring for toxicity (Heparin, Nitro, Insulin, Cardizem)? @ -No Were any procedures done? @ -No Diagnosis/symptom? @ -Asthma exacerbation, tracheobronchitis Acute, or Chronic, or Acute on Chronic? @ -Acute Uncomplicated (without systemic symptoms) or Complicated (systemic symptoms)? @ -Uncomplicated Side effects of treatment? @ -No Exacerbation, Progression, or Severe Exacerbation? @ -No Poses a threat to life or bodily function? How? (Chest pain, [place], [place], pneumonia, PE, COPD, DKA, ARF, appy, cholecystitis, CVA, Diverticulitis, Homicidal, Suicidal, threat to staff... and all critical care pts) @ -Unlikely at this time - Lab Data Result diagrams: 03/15/25 13:32 03/15/25 13:32 Lab Results 03/15/25 03/15/25 03/15/25 Range/Units 12:51 13:32 13:32 WBC 10.48 H (4.50-10.00) 10*3/uL RBC 4.73 (4.40-5.60) 10*6/uL Hgb 14.6 (13.0-17.0) g/dL Hct 43.0 (39.6-50.0) % MCV 90.9 (80.0-97.0) fL MCH 30.9 (27.0-32.0) pg MCHC 34.0 (32.0-37.0) g/dL Plt Count 249 (140-440) 10*3/uL MPV 10.4 (9.5-12.2) fL Immature Gran % (Auto) 0.4 % Neutrophils % 68.1 % Lymphocytes % 21.7 % Monocytes % 7.5 % Eosinophils % 1.8 % Basophils % 0.5 % Immature Gran # 0.04 (0.00-0.04) 10*3/uL Neutrophils # 7.14 (1.80-7.70) 10*3/uL Lymphocytes # 2.27 (0.90-5.00) 10*3/uL Monocytes # 0.79 (0.20-1.00) 10*3/uL Eosinophils # 0.19 (0.04-0.35) 10*3/uL Basophils # 0.05 (0.00-0.10) 10*3/uL PT 11.5 (10.0-12.5) sec INR 1.0 (<1.2) APTT 26.0 (22.0-30.0) sec Sodium (137-145) mmol/L Potassium (3.5-5.1) mmol/L Chloride (98-107) mmol/L Carbon Dioxide (22-30) mmol/L Anion Gap mmol/L BUN (9-20) mg/dL Creatinine (0.66-1.25) mg/dL Est GFR (CKD-EPI)AfAm (>60 ml/min/1.73 sqM) Est GFR (CKD-EPI)NonAf (>60 ml/min/1.73 sqM) Glucose (74-99) mg/dL POC Glucose (mg/dL) 120 H (70-110) mg/dL POC Glu Broadcast Correspondent ID Thompson Cespedes Plasma Lactic Acid Vitaly (0.7-2.0) mmol/L Calcium (8.4-10.2) mg/dL Magnesium (1.6-2.3) mg/dL Total Bilirubin (0.2-1.3) mg/dL AST (17-59) U/L ALT (4-49) U/L Alkaline Phosphatase (38-126) U/L NT-Pro-B Natriuret Pep pg/mL Total Protein (6.3-8.2) g/dL Albumin (3.5-5.0) g/dL 03/15/25 03/15/25 Range/Units 13:32 13:32 WBC (4.50-10.00) 10*3/uL RBC (4.40-5.60) 10*6/uL Hgb (13.0-17.0) g/dL Hct (39.6-50.0) % MCV (80.0-97.0) fL MCH (27.0-32.0) pg MCHC (32.0-37.0) g/dL Plt Count (140-440) 10*3/uL MPV (9.5-12.2) fL Immature Gran % (Auto) % Neutrophils % % Lymphocytes % % Monocytes % % Eosinophils % % Basophils % % Immature Gran # (0.00-0.04) 10*3/uL Neutrophils # (1.80-7.70) 10*3/uL Lymphocytes # (0.90-5.00) 10*3/uL Monocytes # (0.20-1.00) 10*3/uL Eosinophils # (0.04-0.35) 10*3/uL Basophils # (0.00-0.10) 10*3/uL PT (10.0-12.5) sec INR (<1.2) APTT (22.0-30.0) sec Sodium 138 (137-145) mmol/L Potassium 4.2 (3.5-5.1) mmol/L Chloride 106 (98-107) mmol/L Carbon Dioxide 23 (22-30) mmol/L Anion Gap 9 mmol/L BUN 13 (9-20) mg/dL Creatinine 0.84 (0.66-1.25) mg/dL Est GFR (CKD-EPI)AfAm >90 (>60 ml/min/1.73 sqM) Est GFR (CKD-EPI)NonAf >90 (>60 ml/min/1.73 sqM) Glucose 105 H (74-99) mg/dL POC Glucose (mg/dL) (70-110) mg/dL POC Glu Broadcast Correspondent ID Plasma Lactic Acid Vitaly 0.9 (0.7-2.0) mmol/L Calcium 9.2 (8.4-10.2) mg/dL Magnesium 2.1 (1.6-2.3) mg/dL Total Bilirubin 0.7 (0.2-1.3) mg/dL AST 31 (17-59) U/L ALT 31 (4-49) U/L Alkaline Phosphatase 70 (38-126) U/L NT-Pro-B Natriuret Pep 105 pg/mL Total Protein 7.0 (6.3-8.2) g/dL Albumin 4.2 (3.5-5.0) g/dL - EKG Data -: EKG Interpreted by Me EKG Comments: 12-lead Electrocardiogram Interpretation Note EKG was reviewed and interpreted by myself. 12-lead ECG performed at 1304 is interpreted by me as revealing normal sinus rhythm at a rate of 71 beats per minute. Aguirre is normal. Right bundle branch block morphology. KS interval is 164 ms, QRS durations 134 ms, QTc is 436 ms.. There were no ST or T wave abnormalities to suggest myocardial ischemia or injury. R wave progression across the precordium was satisfactory. By my interpretation this EKG is non- diagnostic for acute ischemia. Disposition Clinical Impression: Asthma exacerbation, Tracheobronchitis Disposition: HOME SELF-CARE Condition: Good Instructions (If sedation given, give patient instructions): Asthma (ED), Acute Bronchitis (ED) Prescriptions: predniSONE [Deltasone] 40 mg PO DAILY 5 Days #10 tab Albuterol Inhaler [Ventolin Hfa Inhaler] 1 - 2 puff INHALATION Q6H PRN #1 each PRN Reason: Dyspnea Azithromycin [Zithromax] 250 mg PO DAILY 4 Days #4 tab Is patient prescribed a controlled substance at d/c from ED?: No Referrals: Bessie Salgado MD [Primary Care Provider] - 1-2 days Time of Disposition: 14:56
[2025-03-15 15:15] VITALS: BP 161/92; PULSE 78; RESP 18
== END 2025-03-15 15:10 | disposition home or self-care (01) ==
LOC: EC 12:45
DX: J45.901 Unspecified asthma with (acute) exacerbation (principal); E11.9 Type 2 diabetes mellitus without complications; I10 Essential (primary) hypertension; E78.5 Hyperlipidemia, unspecified; F17.200 Nicotine dependence, unspecified, uncomplicated
CPT/HCPCS: 36415; 94640; 93005; 83880; 80053; 83605; 83735; 85025; 85610; 85730; 71046; 99284; 96365; 96375; J3475; J2919